=== PATIENT | male | born 1935 | race Caucasian/White ===

== ENCOUNTER → 2016-12-11 | Outpatient (CLI) | payer MEDICARE ==
--- NOTE | 2016-12-11 14:51 | US ---
EXAMINATION TYPE: US venous doppler duplex LE DATE OF EXAM: 12/11/2016 10:43 AM COMPARISON: NONE CLINICAL HISTORY: 81-year-old male Pain in BLE M79.606 I73.9 Vascular disease unspecified. Bilat. leg pain, left worse that right at times, no previous DVT. SIDE PERFORMED: bilateral TECHNIQUE: The lower extremity deep venous system is examined utilizing real time linear array sonog carroll with graded compression, doppler sonography and color-flow sonography. FINDINGS: VESSELS IMAGED: External Iliac Vein (EIV) Common Femoral Vein Deep Femoral Vein Greater Saphenous Vein * Femoral Vein Popliteal Vein Small Saphenous Vein * (* superficial vessels) Right Leg: neg for RLE DVT Left Leg: neg for LLE DVT Results called to Zamzam in the office at the time of the exam. IMPRESSION: No evidence for DVT within the bilateral lower extremities imaged from the groin to the knees.
--- NOTE | 2016-12-17 11:24 | P.ARTDOP ---
Arterial Doppler LOWER EXTREMITY ARTERIAL DOPPLER: DATE OF SERVICE: 12/11/2016 Reason for study: Leg pain. Doppler waveforms: Multiphasic bilaterally throughout. Pulse volume recording: Normal configuration. Pressure gradients: Mild distal gradient on the left. Ankle-brachial indices: Greater than 1 on the right. 0.88 on the left.. Toe pressures: [] on the right, [] on the left Impression: Normal on the right with possible mild left femoral popliteal disease. Does not correlate with symptoms..
== END | disposition home or self-care (01) ==
LOC: RADUSWWP 09:51
PROVIDERS: ATTEND Family Medicine
DX: I73.9 Peripheral vascular disease, unspecified (principal); M79.606 Pain in leg, unspecified
CPT/HCPCS: 93923; 93970

== ENCOUNTER 2016-12-21 00:03 | Inpatient (IN) | payer MEDICARE ==
--- NOTE | 2016-12-21 01:48 | ED ---
Abdominal Pain HPI - General Chief Complaint: Abdominal Pain Stated Complaint: Flank Pain Time Seen by Provider: 12/21/16 00:47 Source: patient Mode of arrival: EMS Limitations: no limitations - History of Present Illness Initial Comments: This patient is an 81-year-old man who was transferred here from [facility] to have further evaluation for some abdominal findings. The patient states she was in his usual state of health until about 6 PM when he noticed suprapubic pain, that he described as moderately severe, constant, without any relieving factors. The pain was made worse with any pressure on the abdomen or sitting. The patient also is having some nausea and vomiting and was shaking. He also felt like he had to have a bowel movement though he did not. The patient went to the other hospital where he had workup including labs and CAT scan that found an incidental AAA. The patient also appeared to be having urinary retention, they were able to drain well over 500 mL of urine when they placed a catheter. The patient states that his symptoms resolved after the catheter was placed. The physician there discussed the case with Dr. Medina, who accepted transfer here. MD Complaint: abdominal pain Onset/Timin -: hour(s) Location: suprapubic Radiation: none Severity: severe Quality: sharp Consistency: constant Improves With: nothing Worsens With: nothing Associated Symptoms: nausea, vomiting - Related Data Home Medications Medication Instructions Recorded Confirmed ALPRAZolam [Xanax] 0.5 mg PO BID PRN 12/21/16 12/21/16 Atorvastatin [Lipitor] 20 mg PO HS 12/21/16 12/21/16 Enalapril Maleate [Vasotec] 2.5 mg PO DAILY 12/21/16 12/21/16 Glimepiride [Amaryl] 2 mg PO AC-BRKFST 12/21/16 12/21/16 Magnesium Oxide [Magnesium] 500 mg PO DAILY 12/21/16 12/21/16 Multivit-Min/FA/Lycopen/Lutein 1 tab PO DAILY 12/21/16 12/21/16 [Centrum Silver Tablet] [place]-3/Dha/Epa/Fish Oil [Fish Oil 1 cap PO DAILY 12/21/16 12/21/16 500 mg Softgel] Omeprazole 20 mg PO DAILY 12/21/16 12/21/16 Tamsulosin HCl [Flomax] 0.4 mg PO BID 12/21/16 12/21/16 amLODIPine [Norvasc] 10 mg PO DAILY 12/21/16 12/21/16 traMADol-ACETAMINOP 37.5-325MG 1 tab PO BID 12/21/16 12/21/16 [Ultracet] Allergies Allergy/AdvReac Type Severity Reaction Status Date / Time No Known Allergies Allergy Verified 12/21/16 09:24 Review of Systems ROS Statement: Those systems with pertinent positive or pertinent negative responses have been documented in the HPI. ROS Other: All systems not noted in ROS Statement are negative. Constitutional: Denies: fever, chills Respiratory: Denies: cough, dyspnea Cardiovascular: Denies: chest pain, palpitations, edema Gastrointestinal: Reports: abdominal pain, nausea, vomiting. Denies: diarrhea, constipation Genitourinary: Denies: dysuria, hematuria Musculoskeletal: Denies: back pain Skin: Denies: rash Neurological: Denies: headache, weakness, numbness Past Medical History Past Medical History: GERD/Reflux, Hyperlipidemia, Hypertension History of Any Multi-Drug Resistant Organisms: None Reported Additional Past Surgical History / Comment(s): right wrist, penile implant Past Psychological History: No Psychological Hx Reported Smoking Status: Former smoker Past Alcohol Use History: None Reported Past Drug Use History: None Reported - Past Family History Father Family Medical History: Cancer Mother Family Medical History: Dementia Additional Family Medical History / Comment(s): alzheimers General Exam Limitations: no limitations General appearance: alert, in no apparent distress Head exam: Present: atraumatic, normocephalic Eye exam: Present: normal appearance. Absent: scleral icterus, conjunctival injection Respiratory exam: Present: normal lung sounds bilaterally. Absent: respiratory distress, wheezes, rales, rhonchi, stridor Cardiovascular Exam: Present: regular rate, normal rhythm, normal heart sounds. Absent: systolic murmur, diastolic murmur, rubs, gallop GI/Abdominal exam: Present: soft. Absent: distended, tenderness, guarding, rebound, mass Extremities exam: Present: normal inspection, normal capillary refill. Absent: pedal edema, calf tenderness Back exam: Present: normal inspection. Absent: CVA tenderness (R), CVA tenderness (L) Neurological exam: Present: alert Skin exam: Present: warm, dry, intact, normal color. Absent: rash, cyanosis, diaphoretic, erythema, petechiae, pallor, mottled Course Vital Signs 12/21/16 12/21/16 12/21/16 00:07 02:29 03:25 Temperature 98.1 F 97.1 F L Pulse Rate 99 92 Pulse Rate [ 87 Pulse Oximetery ] Respiratory 18 18 16 Rate Blood Pressure 143/70 156/74 Blood Pressure 136/70 [Right Arm] O2 Sat by Pulse 97 96 94 L Oximetry Medical Decision Making - Medical Decision Making This patient is an 81-year-old man transferred here from outside hospital. He states that he is not having any of the symptoms which had brought him to the other hospital. - Lab Data Result diagrams: 12/23/16 06:45 12/23/16 06:45 Lab Results 12/21/16 12/21/16 12/21/16 Range/Units 01:50 01:50 01:50 WBC 24.6 H (3.8-10.6) k/uL RBC 4.31 (4.30-5.90) m/uL Hgb 14.6 (13.0-17.5) gm/dL Hct 41.5 (39.0-53.0) % MCV 96.3 (80.0-100.0) fL MCH 33.8 (25.0-35.0) pg MCHC 35.1 (31.0-37.0) g/dL RDW 13.2 (11.5-15.5) % Plt Count 258 (150-450) k/uL Neutrophils % 93 % Lymphocytes % 2 % Monocytes % 4 % Eosinophils % 0 % Basophils % 0 % Neutrophils # 22.8 H (1.3-7.7) k/uL Lymphocytes # 0.6 L (1.0-4.8) k/uL Monocytes # 1.0 (0-1.0) k/uL Eosinophils # 0.0 (0-0.7) k/uL Basophils # 0.0 (0-0.2) k/uL Sodium 142 (137-145) mmol/L Potassium 4.7 (3.5-5.1) mmol/L Chloride 109 H (98-107) mmol/L Carbon Dioxide 22 (22-30) mmol/L Anion Gap 11 mmol/L BUN 32 H (9-20) mg/dL Creatinine 1.09 (0.66-1.25) mg/dL Est GFR (MDRD) Af Amer >60 (>60 ml/min/1.73 sqM) Est GFR (MDRD) Non-Af >60 (>60 ml/min/1.73 sqM) Glucose 164 H (74-99) mg/dL Calcium 9.2 (8.4-10.2) mg/dL Total Bilirubin 0.9 (0.2-1.3) mg/dL AST 32 (17-59) U/L ALT 39 (21-72) U/L Alkaline Phosphatase 41 (38-126) U/L Total Protein 6.8 (6.3-8.2) g/dL Albumin 4.1 (3.5-5.0) g/dL Urine Color Dark Brown Urine Appearance Turbid (Clear) Urine pH 5.5 (5.0-8.0) Ur Specific [address] 1.016 (1.001-1.035) Urine Protein 2+ H (Negative) Urine Glucose (UA) Negative (Negative) Urine Ketones 1+ H (Negative) Urine Blood Large H (Negative) Urine Nitrite Negative (Negative) Urine Bilirubin Negative (Negative) Urine Urobilinogen <2.0 (<2.0) mg/dL Ur Leukocyte Esterase Small H (Negative) Urine RBC >182 H (0-5) /hpf Urine WBC >182 H (0-5) /hpf Urine WBC Clumps Few H (None) /hpf Amorphous Sediment Rare H (None) /hpf Urine Mucus Moderate H (None) /hpf - EKG Data -: EKG Interpreted by Or EKG shows normal: sinus rhythm (With occasional PVC.), axis (Normal), intervals (The IN interval is 216 ms, consistent with first-degree AV block. Other intervals normal), QRS complexes (Normal), ST-T waves (Normal) Rate: normal (Rate 97 bpm) Disposition Clinical Impression: Urinary retention, Abdominal aortic aneurysm Disposition: ADMITTED IP TO THIS [facility] Condition: Fair
[2016-12-21] MEDS ORDERED: NALOXONE 0.4 MG/ML 1 ML VIAL IV PRN (01:52)
[2016-12-21 02:00] LABS: Basophils % (A) 0 %; CHCM 35.5; Eosinophils % (A) 0 %; HCT 41.5 % (39.0-53.0); HGB 14.6 gm/dL (13.0-17.5); Luc # (Auto) 0.15; Luc % (Auto) 1; Lymphocytes # (A) 0.6 k/uL (1.0-4.8); Lymphocytes % (A) 2 %; MCH 33.8 pg (25.0-35.0); MCHC 35.1 g/dL (31.0-37.0); MCV 96.3 fL (80.0-100.0); Mean Platelet Volume 7.3; Monocytes % (A) 4 %; Neutrophils # (A) 22.8 k/uL (1.3-7.7); Neutrophils % (A) 93 %; RBC 4.31 m/uL (4.30-5.90); RDW 13.2 % (11.5-15.5); WBC 24.6 k/uL (3.8-10.6); WBC (Perox) 25.33
[2016-12-21 02:05] LABS: Amorphous Sediment,Urine Rare /hpf; Appearance,Urine Turbid (Clear); Bilirubin,Urine Negative (Negative); Glucose,Urine (UA) Negative (Negative); Ketones,Urine 1+ (Negative); Leukocyte Esterase,Urine Small (Negative); Mucus,Urine Moderate /hpf; Nitrite,Urine Negative (Negative); PH, Urine 5.5 (5.0-8.0); Particle Count 19002; Protein,Urine 2+ (Negative); RBC,Urine >182 /hpf (0-5); Specific Gravity,Urine 1.016 (1.001-1.035); UA Billing (MACRO vs. MICRO) MICRO; Urobilinogen,Urine <2.0 mg/dL (<2.0); WBC,Urine >182 /hpf (0-5)
[2016-12-21 02:18] LABS: ALT 39 U/L (21-72); AST 32 U/L (17-59); Alkaline Phosphatase 41 U/L (38-126); Anion Gap 11 mmol/L; Blood Urea Nitrogen 32 mg/dL (9-20); Calcium 9.2 mg/dL (8.4-10.2); Carbon Dioxide 22 mmol/L (22-30); Chloride 109 mmol/L (98-107); Glucose 164 mg/dL (74-99); Non-African American GFR(MDRD) >60 (>60 ml/min/1.73 sqM); Potassium 4.7 mmol/L (3.5-5.1); Sodium 142 mmol/L (137-145); Total Bilirubin 0.9 mg/dL (0.2-1.3); Total Protein 6.8 g/dL (6.3-8.2)
[2016-12-21] MEDS ORDERED: HYDROmorphone 1 MG/ML 1 ML SYRINGE IVP PRN (11:13)
[2016-12-21] MEDS: GLIMEPIRIDE 2 MG TAB PO SCH (12:24)
[2016-12-21] MEDS: LISINOPRIL 5 MG TAB PO SCH (12:26)
[2016-12-21] MEDS: TAMSULOSIN 0.4 MG CAP.ER.24H PO SCH ×2 (12:26→22:44)
[2016-12-21] MEDS: MULTIVITAMINS, THERA 1 EACH TAB PO SCH (12:26)
[2016-12-21] MEDS: amLODIPine 10 MG TAB PO SCH (12:26)
[2016-12-21] MEDS: MAGNESIUM OXIDE 400 MG TAB PO SCH (12:26)
[2016-12-21] MEDS: INSULIN LISPRO (humaLOG) 300 UNIT/3 ML VIAL SQ SCH ×3 (12:26→22:48)
[2016-12-21] MEDS: PANTOPRAZOLE 40 MG/10 ML VIAL IVP SCH (12:27)
[2016-12-21] MEDS: traMADol-ACETAMINOP 37.5-325MG 1 EACH TAB PO SCH ×2 (12:36→22:42)
--- NOTE | 2016-12-21 13:40 | P.GSCN ---
History of Present Illness Consult date: 12/21/16 History of present illness: The patient is an 81-year-old gentleman with a known history of BPH who presented to the emergency room up [place] recently with abdominal pain and difficulty voiding. He was catheterized for 500 mL of urine and felt much better. He was transferred down here for further evaluation. His urinalysis [place] looked infected. A urine culture has been ordered. I do not know whether one was ordered [place]. The patient does have a history of BPH. He has been on Flomax twice a day. He has not seen a urologist in some time. His urination varies from hourly to every 3-4 hours. He has not had any infections or bleeding. He has had some urgency incontinence. He has done relatively well until just recently. He does admit to some significant constipation just prior to his urine retention. He thought that maybe contribute into his urine retention. He did take a Dulcolax suppository but went into retention before he had results from the Dulcolax suppository. Review of Systems - Constitutional Reports as per HPI - Gastrointestinal Reports as per HPI - Genitourinary Reports as per HPI Past Medical History Past Medical History: GERD/Reflux, Hyperlipidemia, Hypertension, Prostate Disorder Additional Past Medical History / Comment(s): restless leg syndrome History of Any Multi-Drug Resistant Organisms: None Reported Additional Past Surgical History / Comment(s): right wrist, penile implant Past Psychological History: No Psychological Hx Reported Smoking Status: Never smoker Past Alcohol Use History: None Reported Past Drug Use History: None Reported - Past Family History Father Family Medical History: Cancer Mother Family Medical History: Dementia Additional Family Medical History / Comment(s): alzheimers Medications and Allergies Home Medications and Allergies Comment(s): The patient has been on tamsulosin 0.4 mg twice a day Home Medications Medication Instructions Recorded Confirmed Type ALPRAZolam [Xanax] 0.5 mg PO BID PRN 12/21/16 12/21/16 History Atorvastatin [Lipitor] 20 mg PO HS 12/21/16 12/21/16 History Enalapril Maleate [Vasotec] 2.5 mg PO DAILY 12/21/16 12/21/16 History Glimepiride [Amaryl] 2 mg PO AC-BRKFST 12/21/16 12/21/16 History Magnesium Oxide [Magnesium] 500 mg PO DAILY 12/21/16 12/21/16 History Multivit-Min/FA/Lycopen/Lutein 1 tab PO DAILY 12/21/16 12/21/16 History [Centrum Silver Tablet] [place]-3/Dha/Epa/Fish Oil [Fish Oil 1 cap PO DAILY 12/21/16 12/21/16 History 500 mg Softgel] Omeprazole 20 mg PO DAILY 12/21/16 12/21/16 History Tamsulosin HCl [Flomax] 0.4 mg PO BID 12/21/16 12/21/16 History amLODIPine [Norvasc] 10 mg PO DAILY 12/21/16 12/21/16 History traMADol-ACETAMINOP 37.5-325MG 1 tab PO BID 12/21/16 12/21/16 History [Ultracet] Allergies Allergy/AdvReac Type Severity Reaction Status Date / Time No Known Allergies Allergy Verified 12/21/16 09:24 Surgical - Exam Vital Signs Temp Pulse Resp BP Pulse Ox 98.1 F 99 18 143/70 97 12/21/16 00:07 12/21/16 00:07 12/21/16 00:07 12/21/16 00:07 12/21/16 00:07 - General well developed, well nourished, no distress - Eyes PERRL - ENT no hearing loss - Neck no masses - Respiratory normal expansion, normal respiratory effort - Cardiovascular Rhythm: regular - Abdomen Abdomen: soft, non tender - Genitourinary Penis has an indwelling catheter is normal testes epididymis are unremarkable perineum is unremarkable. The prostate is greater than 75 g enlarged and benign - Integumentary no rash - Neurologic normal coordination, normal sensation - Musculoskeletal normal posture - Psychiatric oriented to time, oriented to person, oriented to place, speech is normal, memory intact Results - Labs 12/21/16 01:50 12/21/16 01:50 Abnormal Lab Results - Last 24 Hours (Table) 12/21/16 12/21/16 12/21/16 Range/Units 01:50 01:50 01:50 WBC 24.6 H (3.8-10.6) k/uL Neutrophils # 22.8 H (1.3-7.7) k/uL Lymphocytes # 0.6 L (1.0-4.8) k/uL Chloride 109 H (98-107) mmol/L BUN 32 H (9-20) mg/dL Glucose 164 H (74-99) mg/dL Urine Protein 2+ H (Negative) Urine Ketones 1+ H (Negative) Urine Blood Large H (Negative) Ur Leukocyte Esterase Small H (Negative) Urine RBC >182 H (0-5) /hpf Urine WBC >182 H (0-5) /hpf Urine WBC Clumps Few H (None) /hpf Amorphous Sediment Rare H (None) /hpf Urine Mucus Moderate H (None) /hpf Diabetes panel 12/21/16 Range/Units 01:50 Sodium 142 (137-145) mmol/L Potassium 4.7 (3.5-5.1) mmol/L Chloride 109 H (98-107) mmol/L Carbon Dioxide 22 (22-30) mmol/L BUN 32 H (9-20) mg/dL Creatinine 1.09 (0.66-1.25) mg/dL Glucose 164 H (74-99) mg/dL Calcium 9.2 (8.4-10.2) mg/dL AST 32 (17-59) U/L ALT 39 (21-72) U/L Alkaline Phosphatase 41 (38-126) U/L Total Protein 6.8 (6.3-8.2) g/dL Albumin 4.1 (3.5-5.0) g/dL Calcium panel 12/21/16 Range/Units 01:50 Calcium 9.2 (8.4-10.2) mg/dL Albumin 4.1 (3.5-5.0) g/dL Pituitary panel 12/21/16 Range/Units 01:50 Sodium 142 (137-145) mmol/L Potassium 4.7 (3.5-5.1) mmol/L Chloride 109 H (98-107) mmol/L Carbon Dioxide 22 (22-30) mmol/L BUN 32 H (9-20) mg/dL Creatinine 1.09 (0.66-1.25) mg/dL Glucose 164 H (74-99) mg/dL Calcium 9.2 (8.4-10.2) mg/dL Adrenal panel 12/21/16 Range/Units 01:50 Sodium 142 (137-145) mmol/L Potassium 4.7 (3.5-5.1) mmol/L Chloride 109 H (98-107) mmol/L Carbon Dioxide 22 (22-30) mmol/L BUN 32 H (9-20) mg/dL Creatinine 1.09 (0.66-1.25) mg/dL Glucose 164 H (74-99) mg/dL Calcium 9.2 (8.4-10.2) mg/dL Total Bilirubin 0.9 (0.2-1.3) mg/dL AST 32 (17-59) U/L ALT 39 (21-72) U/L Alkaline Phosphatase 41 (38-126) U/L Total Protein 6.8 (6.3-8.2) g/dL Albumin 4.1 (3.5-5.0) g/dL Assessment and Plan Plan: Impression: Acute urinary tract infection. Acute urine retention. Constipation. History of BPH. Recommendations: Do not know whether the constipation or infection led to his retention. Regardless he does have a very big prostate which is aggravating the situation. The patient is being treated with antibiotics and pending culture as to final oral recommendations. Should continue on the Flomax twice a day. Outside finasteride to the regimen. He should have a voiding trial and a proximally 5-7 days. If he goes home before that this can be accomplished in our office as an outpatient. He will also need a cystoscopy at some point in time.
[2016-12-21 15:02] LABS: Basophils % (A) 0 %; CH 33.8; CHCM 34.4; Eosinophils # (A) 0.1 k/uL (0-0.7); Eosinophils % (A) 1 %; HCT 39.8 % (39.0-53.0); HDW 2.67; HGB 13.4 gm/dL (13.0-17.5); Luc # (Auto) 0.21; Luc % (Auto) 1; Lymphocytes # (A) 1.4 k/uL (1.0-4.8); Lymphocytes % (A) 9 %; MCH 33.2 pg (25.0-35.0); MCHC 33.7 g/dL (31.0-37.0); MCV 98.7 fL (80.0-100.0); Mean Platelet Volume 7.3; Monocytes # (A) 0.9 k/uL (0-1.0); Monocytes % (A) 6 %; Neutrophils # (A) 13.1 k/uL (1.3-7.7); Neutrophils % (A) 84 %; RBC 4.03 m/uL (4.30-5.90); RDW 13.3 % (11.5-15.5); WBC 15.7 k/uL (3.8-10.6); WBC (Perox) 16.89
[2016-12-21 19:52] LABS: Hemoglobin A1C 5.8 % (4.2-6.1)
[2016-12-21 20:19] LABS: Basophils % (A) 0 %; CH 33.9; CHCM 35.2; Eosinophils # (A) 0.2 k/uL (0-0.7); Eosinophils % (A) 2 %; HCT 37.4 % (39.0-53.0); HDW 2.63; Luc # (Auto) 0.22; Luc % (Auto) 2; Lymphocytes # (A) 1.6 k/uL (1.0-4.8); Lymphocytes % (A) 12 %; MCH 33.6 pg (25.0-35.0); MCHC 34.7 g/dL (31.0-37.0); MCV 96.9 fL (80.0-100.0); Mean Platelet Volume 7.5; Monocytes # (A) 0.7 k/uL (0-1.0); Monocytes % (A) 5 %; Neutrophils # (A) 10.4 k/uL (1.3-7.7); Neutrophils % (A) 79 %; RBC 3.86 m/uL (4.30-5.90); RDW 13.2 % (11.5-15.5); WBC 13.2 k/uL (3.8-10.6); WBC (Perox) 13.89
[2016-12-21] MEDS: ATORVASTATIN 20 MG TAB PO SCH (22:44)
[2016-12-21] MEDS: ALPRAZolam 0.5 MG TAB PO PRN (22:44)
[2016-12-21 22:55] LABS: Glucose,Whole Blood 104 mg/dL (75-99)
[2016-12-22 07:01] LABS: Basophils % (A) 0 %; CHCM 35.3; Eosinophils # (A) 0.2 k/uL (0-0.7); Eosinophils % (A) 2 %; HCT 37.1 % (39.0-53.0); HDW 2.68; HGB 12.7 gm/dL (13.0-17.5); Luc # (Auto) 0.15; Luc % (Auto) 1; Lymphocytes # (A) 1.4 k/uL (1.0-4.8); Lymphocytes % (A) 14 %; MCH 33.1 pg (25.0-35.0); MCHC 34.1 g/dL (31.0-37.0); MCV 96.9 fL (80.0-100.0); Mean Platelet Volume 7.4; Monocytes # (A) 0.6 k/uL (0-1.0); Monocytes % (A) 6 %; Neutrophils % (A) 77 %; RBC 3.83 m/uL (4.30-5.90); RDW 13.2 % (11.5-15.5); WBC 10.3 k/uL (3.8-10.6); WBC (Perox) 10.83
[2016-12-22 07:10] LABS: Anion Gap 6 mmol/L; Blood Urea Nitrogen 19 mg/dL (9-20); Calcium 8.7 mg/dL (8.4-10.2); Carbon Dioxide 25 mmol/L (22-30); Chloride 107 mmol/L (98-107); Glucose 118 mg/dL (74-99); Non-African American GFR(MDRD) >60 (>60 ml/min/1.73 sqM); Potassium 4.1 mmol/L (3.5-5.1); Sodium 138 mmol/L (137-145)
[2016-12-22] MEDS: GLIMEPIRIDE 2 MG TAB PO SCH (07:35)
[2016-12-22] MEDS: INSULIN LISPRO (humaLOG) 300 UNIT/3 ML VIAL SQ SCH ×4 (07:35→22:27)
[2016-12-22] MEDS: PANTOPRAZOLE 40 MG/10 ML VIAL IVP SCH (08:29)
[2016-12-22] MEDS: amLODIPine 10 MG TAB PO SCH (08:31)
[2016-12-22] MEDS: MULTIVITAMINS, THERA 1 EACH TAB PO SCH (08:31)
[2016-12-22] MEDS: LISINOPRIL 5 MG TAB PO SCH (08:32)
[2016-12-22] MEDS: MAGNESIUM OXIDE 400 MG TAB PO SCH (08:32)
[2016-12-22] MEDS: TAMSULOSIN 0.4 MG CAP.ER.24H PO SCH ×2 (08:32→21:44)
[2016-12-22] MEDS: FINASTERIDE 5 MG TAB PO SCH (08:32)
[2016-12-22] MEDS: traMADol-ACETAMINOP 37.5-325MG 1 EACH TAB PO SCH ×2 (08:34→21:43)
--- NOTE | 2016-12-22 09:23 | HP ---
DATE OF ADMISSION: 12/21/2016 CHIEF COMPLAINT: Abdominal pain. HISTORY OF PRESENT ILLNESS: This 81-year-old gentleman with a past medical history of multiple medical problems including gastroesophageal reflux disease, history of prostate disorder, was admitted to [facility] for evaluation of the lower abdominal pain and urinary retention. The patient had a Boucher catheter inserted. The patient was receiving taking Flomax previously. The patient also had CT scan of the abdomen done at [facility] showing incidental abdominal aortic aneurysm. About 500 mL of urine was drained from the catheter and the patient was sent to [facility]. There is no history of fever, rigors or chills. No history of headache, loss of consciousness or seizures. White count is 150, the patient also had evidence of UTI. Patient also complaining of bright red blood per and the patient admitted for further evaluation and treatment. There is no history of any fever, rigors. No history of headaches, loss of consciousness or seizures. PAST MEDICAL HISTORY: History of GERD, hypertension, hyperlipidemia, history of prostate disorder, history of right wrist and penile implant. Medications prior to admission include: 1. Fish oil 500 mg p.o. daily. 2. Ultracet 1 tablet p.o. b.i.d. 3. Norvasc 10 mg p.o. daily. 4. Flomax 0.4 daily b.i.d. 5. Omeprazole 20 mg p.o. daily. 6. Centrum 1 p.o. daily. 7. Magnesium 500 mg p.o. daily. 8. Amaryl 2 mg a.c. breakfast. 9. Vasotec 2.5 mg daily. 10. Lipitor 20 mg. 11. Xanax 0.5 b.i.d. p.r.n. ALLERGIES: None. FAMILY HISTORY: History of cancer and dementia in the family. SOCIAL HISTORY: No history of smoking, no history of alcohol intake. REVIEW OF SYSTEMS: ENT: No diminished hearing. No diminished vision. CARDIOVASCULAR: As mentioned earlier. RESPIRATORY: No cough. GI: As mentioned earlier. : As mentioned earlier. CENTRAL NERVOUS SYSTEM: No numbness or weakness. ALLERGY/IMMUNOLOGY: No asthma or hayfever. MUSCULOSKELETAL: As mentioned earlier. HEMATOLOGY/ONCOLOGY: No history of anemia. ENDOCRINE: No history of diabetes or hypothyroidism. CONSTITUTIONAL: As mentioned earlier. DERMATOLOGY: Negative. RHEUMATOLOGY: Negative. PSYCHIATRY: As mentioned earlier. PHYSICAL EXAMINATION: The patient is alert and oriented times three. Pulse 81, blood pressure 160/74, respirations 18, temperature 98.2, pulse ox 94% on room air. HEENT: Conjunctivae normal. Oral mucosa moist. NECK: No jugular venous distention. No carotid bruit. No lymph node enlargement. CARDIOVASCULAR: S1. S2 muffled. RESPIRATORY: Breath sounds diminished at the bases. A few rhonchi, no crackles. ABDOMEN: Soft. Mild diffuse discomfort is lower part of the abdomen, otherwise no mass palpable. No bruits. Legs: No edema. No swelling. CENTRAL NERVOUS SYSTEM: Higher functions as mentioned earlier. Moves all four limbs. No focal deficits. LYMPHATICS: No lymph nodes palpable in the neck, axillae or groin. SKIN: No ulcer, rash or bleeding. LABORATORY DATA: WBC is 24.6, chloride 117. Glucose 164. UA noted. ASSESSMENT: 1. Lower abdominal pain with urinary outlet obstruction with acute urinary tract infection with possible systemic inflammatory response syndrome. 2. Increased WBC. 3. Possible lower gastrointestinal bleeding. 4. Abdominal aortic aneurysm. 5. History of gastroesophageal reflux disease. 6. Hypertension, essential. 7. Hyperlipidemia. 8. History of restless leg syndrome. 9. History of degenerative joint disease. 10. FULL CODE. RECOMMENDATIONS AND DISCUSSION: In this 81-year-old gentleman who presented with multiple complex medical issues, we will monitor the patient closely, continue the current medications, continue symptomatic treatment. We will recommend empiric antibiotics. We will follow the cultures. Repeat labs. Otherwise, monitor hemoglobin closely as far as the gastrointestinal bleed is concerned, otherwise, urology and vascular consultations. We do not have the full report of the CT scan done [facility] [place]. We will continue to monitor. Prognosis guarded. I had a detailed discussion with the family and the family agrees. Further recommendations to follow. See orders for further details. Symptomatic treatment also will be provided. Urologist is planning voiding trial as well as probably in the outpatient setting. KAM
[2016-12-22 11:42] LABS: Glucose,Whole Blood 155 mg/dL (75-99)
--- NOTE | 2016-12-22 13:32 | CONS ---
DATE OF CONSULTATION: 12/22/2016 REASON FOR CONSULTATION: Acute lower gastrointestinal bleed. HISTORY OF PRESENT ILLNESS: The patient is an 81-year-old pleasant white male who was transferred from [facility] for urinary retention. The patient started having some lower abdominal discomfort and cramping in the lower abdomen. He thought he initially was very constipated. He took a couple of tablets of Dulcolax and after that he had 2 episodes of bright red blood per rectum. Because of the progressive suprapubic pain and moderate abdominal distention, he went to the emergency room at [facility] and he was subsequently diagnosed with urinary retention. He had a Boucher catheter placed and subsequently also had a CT of the abdomen and pelvis done that showed evidence of incidentally he was noted to have abdominal aortic aneurysm and hence Dr. Schumacher has been consulted. The patient was transferred to this hospital. He was evaluated by Dr. Goyal yesterday. This morning, he states that he had another two episodes of large amount of bright red blood per stool. Last night he had one episode with some clots. He still had some cramping of lower quadrant abdominal pain. He never had these symptoms before. His last colonoscopy at [place] was done about 6 or 7 years ago and according to the patient was within normal limits. He reports no nausea, vomiting. Denies any fever, chills, night sweats. His past medical history is significant for hypertension, hypercholesterolemia, degenerative joint disease, gastroesophageal reflux disease, diabetes mellitus, anxiety. Medications at home: 1. Xanax. 2. Lipitor. 3. Vasotec. 4. Amaryl. 5. Magnesium. 6. Centrum silver. 7. Flomax. 8. Omeprazole. 9. Norvasc. 10. Ultracet. ALLERGIES: None. SOCIAL HISTORY: No history of smoking or alcohol use. FAMILY HISTORY: Unremarkable. REVIEW OF SYSTEMS: CARDIOPULMONARY: No chest pain or shortness of breath. GENITOURINARY: No dysuria or hematuria. MUSCULOSKELETAL: Unremarkable. SKIN: Unremarkable. ENDOCRINE: Unremarkable. PSYCHIATRIC: Unremarkable. NEUROLOGY: Unremarkable. ENT/vision: Unremarkable. CONSTITUTIONAL: No recent weight loss. No fevers, chills or night sweats. On physical examination, he appears comfortable in no apparent distress. Vital signs are stable. Blood pressure is 143/70, pulse rate 73, temperature 97. HEENT EXAMINATION: Unremarkable. Conjunctivae pink. Sclerae anicteric. Oral cavity, no lesions. NECK: No JVD or lymph node enlargement. Chest was clear to auscultation. HEART: Regular rate and rhythm. ABDOMEN: Soft. Bowel sounds are positive. No organomegaly. EXTREMITIES: No pedal edema. SKIN: No rashes. NEURO: Alert and oriented x3. No focal deficits. Labs done at the time of admission to the hospital: WBC 15.7, hemoglobin 13.4, and platelets are 245. This morning, WBC 10.3, hemoglobin 12.7 and platelets are 208, ALT, AST, t-bili and alkaline phosphatase are within normal limits. BUN and creatinine normal. C. difficile was negative. Stool occult blood was positive. IMPRESSION: 1. Acute lower gastrointestinal bleed, possibly diverticular in etiology. Other colonic pathology cannot be excluded. Last colonoscopy 6 to 7 years ago was normal according to the patient. 2. Acute urinary retention status post Boucher catheter placement and the patient gradually improving. Urology has seen the patient. RECOMMENDATIONS: 1. CBC every 12 hours as needed. 2. Will proceed with a colonoscopy tomorrow. I discussed with the patient the risks, benefits, and complications of the procedure and he is agreeable to it. Thank you for this consultation.
[2016-12-22 14:02] LABS: Glucose,Whole Blood 199 mg/dL (75-99)
[2016-12-22] MEDS: HYDROcodone/APAP 5-325MG 1 EACH TAB PO PRN (14:30)
[2016-12-22] MEDS ORDERED: PEG 3350-NA SULF,BICARB,CL/KCL 4,000 ML BOTTLE PO ONE (16:00)
[2016-12-22 17:00] LABS: Glucose,Whole Blood 152 mg/dL (75-99)
[2016-12-22 20:49] LABS: Glucose,Whole Blood 104 mg/dL (75-99)
[2016-12-22] MEDS: ATORVASTATIN 20 MG TAB PO SCH (21:44)
[2016-12-22] MEDS: ALPRAZolam 0.5 MG TAB PO PRN (21:44)
--- NOTE | 2016-12-23 06:39 | PN ---
DATE OF SERVICE: 12/22/2016 This 81-year-old gentleman admitted with multiple medical problems and abdominal pain also had lower gastrointestinal bleed. Dr. Contreras has recommended colonoscopy. Patient refused. Currently the hemoglobin is 12.7. The patient also had abdominal aortic aneurysm about 5.2 cm. No chest pain, no palpitations. No fever. PAST MEDICAL HISTORY: Reviewed. REVIEW OF SYSTEMS: CARDIOVASCULAR: No angina. RESPIRATORY: Mentioned earlier. GI: Mentioned earlier. : Mentioned earlier. NERVOUS SYSTEM: No numbness or weakness. Medications are reviewed and include: 1. [place] 5 mg daily. 3. Norvasc 10 mg daily. 4. Lipitor 20 mg q.h.s. 5. Rocephin 1 gram IV daily. 6. Proscar 5 mg daily. 7. Amaryl 2 mg a.c. breakfast. 8. Dilaudid 0.5 mg q.6 p.r.n. 9. Humalog scale. 10. Zestril 5 mg p.o. daily. 11. Magnesium oxide 400 mg daily. 12. Multivitamins. 13. Narcan. 14. Protonix. 16. Flomax. PHYSICAL EXAMINATION: The patient is alert and oriented x3. Pulse 79, blood pressure 120/66, respirations 18, temperature 98.4. Pulse ox 97% on room air. HEENT: Conjunctivae normal. NECK: No jugular venous distention. CARDIOVASCULAR: S1 and S2, muffled. RESPIRATORY: Breath sounds diminished at the bases. A few scattered rhonchi and crackles. ABDOMEN: Soft, nontender. No mass palpable. No guarding, no rigidity. Boucher catheter in situ. No pulsatile mass. No bruit. LEGS: No edema, no swelling. Pulses are diminished bilaterally. NERVOUS SYSTEM: Higher function as mentioned. Moves all four limbs. No focal motor deficits. LYMPHATIC: No lymphadenopathy in the neck, axillae or groin. SKIN: No ulcer, rash or bleeding. Labs are WBC 10, hemoglobin is 12.7. ASSESSMENT: 1. Lower abdominal pain with the urinary outlet obstruction with acute urinary tract infection with possible systemic inflammatory response syndrome. 2. Increased WBC. 3. Lower gastrointestinal bleeding for evaluation. 4. Mild anemia. 5. Abdominal aortic aneurysm 5.6 cm. 6. History of gastroesophageal reflux disease. 7. Hypertension, essential. 8. Hyperlipidemia. 9. History of restless leg syndrome. 10. History of degenerative joint disease. 11. FULL CODE. RECOMMENDATIONS AND DISCUSSION: I recommend to continue the current medications, continue monitoring and symptomatic treatment. Continue the Boucher catheter. Continue broad-spectrum IV antibiotics. Cultures are negative so far. I would also recommend to follow closely with Vascular Surgery regarding the abdominal aortic aneurysm. Dr. Contreras's notes appreciated, but as mentioned earlier the patient refused colonoscopy. KAM
[2016-12-23 07:20] LABS: Glucose,Whole Blood 124 mg/dL (75-99)
[2016-12-23 07:30] LABS: Basophils % (A) 0 %; CH 33.5; CHCM 34.1; Eosinophils # (A) 0.2 k/uL (0-0.7); Eosinophils % (A) 2 %; HCT 37.4 % (39.0-53.0); HDW 2.56; HGB 12.5 gm/dL (13.0-17.5); Luc # (Auto) 0.15; Luc % (Auto) 2; Lymphocytes # (A) 1.1 k/uL (1.0-4.8); Lymphocytes % (A) 14 %; MCHC 33.4 g/dL (31.0-37.0); MCV 98.6 fL (80.0-100.0); Mean Platelet Volume 7.9; Monocytes # (A) 0.4 k/uL (0-1.0); Monocytes % (A) 6 %; Neutrophils # (A) 6.2 k/uL (1.3-7.7); Neutrophils % (A) 77 %; RBC 3.79 m/uL (4.30-5.90); RDW 13.3 % (11.5-15.5); WBC 8.1 k/uL (3.8-10.6)
[2016-12-23 07:36] LABS: Anion Gap 6 mmol/L; Blood Urea Nitrogen 13 mg/dL (9-20); Calcium 8.7 mg/dL (8.4-10.2); Carbon Dioxide 27 mmol/L (22-30); Chloride 107 mmol/L (98-107); Glucose 124 mg/dL (74-99); Non-African American GFR(MDRD) >60 (>60 ml/min/1.73 sqM); Potassium 4.1 mmol/L (3.5-5.1); Sodium 140 mmol/L (137-145)
[2016-12-23] MEDS: INSULIN LISPRO (humaLOG) 300 UNIT/3 ML VIAL SQ SCH ×4 (08:17→22:08)
[2016-12-23] MEDS: GLIMEPIRIDE 2 MG TAB PO SCH ×2 (08:19→11:39)
[2016-12-23] MEDS: amLODIPine 10 MG TAB PO SCH (08:22)
[2016-12-23] MEDS: LISINOPRIL 5 MG TAB PO SCH (08:22)
[2016-12-23] MEDS: MAGNESIUM OXIDE 400 MG TAB PO SCH (08:22)
[2016-12-23] MEDS: MULTIVITAMINS, THERA 1 EACH TAB PO SCH (08:23)
[2016-12-23] MEDS: FINASTERIDE 5 MG TAB PO SCH (08:23)
[2016-12-23] MEDS: TAMSULOSIN 0.4 MG CAP.ER.24H PO SCH ×2 (08:23→22:07)
[2016-12-23] MEDS: PANTOPRAZOLE 40 MG/10 ML VIAL IVP SCH (08:23)
[2016-12-23] MEDS: traMADol-ACETAMINOP 37.5-325MG 1 EACH TAB PO SCH ×2 (08:29→22:10)
[2016-12-23 11:35] LABS: Glucose,Whole Blood 225 mg/dL (75-99)
--- NOTE | 2016-12-23 11:41 | PN ---
DATE OF SERVICE: 12/23/2016 The patient is an 81-year-old pleasant white male admitted to the hospital with acute urinary retention. He also was having multiple episodes of bright red blood per rectum that started the day prior to admission to the hospital. He was constipated, took some Dulcolax and since then he had multiple episodes of bright red blood per rectum. Yesterday morning he had 2 episodes and subsequently he was seen on consultation and the plan was to proceed with a colonoscopy today. However, yesterday evening, he decided not to have the colonoscopy done because he feels extremely weak and tired and he thought he cannot tolerate the prep. Since yesterday morning he did not have any further episodes of bleeding. This morning he is doing well. No abdominal pain. Denies any nausea or vomiting. In fact, had no bowel movement so far. On physical examination, appears comfortable in no apparent distress. Vital signs are stable. Blood pressure is 139/82, pulse rate 85, and afebrile. HEENT EXAMINATION: Unremarkable. Conjunctivae pink. Sclerae anicteric. Oral cavity, no lesions. NECK: No JVD or lymph node enlargement. Chest was clear to auscultation. HEART: Regular rate and rhythm. ABDOMEN: Soft. Bowel sounds are positive. No organomegaly. EXTREMITIES: No pedal edema. SKIN: No rashes. NEURO: Alert and oriented x3. No focal deficits. Labs from this morning still pending. Hemoglobin yesterday 12.4. IMPRESSION: 1. Acute lower gastrointestinal bleeding possibly diverticular in nature, cannot rule out other colonic pathology. He had bleeding for 3 days, now subsided for the last 24-hour period. Last hemoglobin yesterday 12.4 and this morning hemoglobin is still pending. 2. Acute urinary retention. Urology is following the patient closely. RECOMMENDATIONS: 1. Advanced to a regular diet. 2. At this time patient refuses to have a colonoscopy and hence I suggested that if he has more bleeding, we will talk about this again. Otherwise, we will plan on doing this on an outpatient basis. 3. Await CBC from this morning. 4. We will follow him closely during his hospital stay. Thank you for this consultation.
--- NOTE | 2016-12-23 13:45 | P.GSCN ---
History of Present Illness History of present illness: 81 male, history of lower abdominal pain seen by Dr. Bain and he had a retention of urine folic catheter was placed and a he had a 500 mL of urine output patient has a very large prostate he also has some low hemoglobin and patient was scheduled to have a colonoscopy this morning patient refused and he was rescheduled. Patient had a CT of the abdomen and pelvis at [facility] patient has a right hydronephrosis, he also has infrarenal abdominal aortic aneurysm which is 5.6 which was incidental finding Medical history history of hypertension, history of prostate disorder, Neck examination neck is supple no bruit appreciated Chest clear first and second sound normal Abdomen soft nontender aorta is nontender bowel sounds are present Vascular examination brachial radial pulses are present, femorals is 2+, left femoral is 1+ Impression is infrarenal abdominal aortic aneurysm no evidence of le Plan is patient has a workup for colonoscopy and also he has a retention of urine under care of Zackary yvonne Matahen will be needing CTA of the abdomen and pelvis with runoff with 3 mm cut which can be done in an outpatient I have discussed with in detail she has a daughter [facility] she is a nurse practitioner Eschen will be seen in my office next week after discharge from the hospital we'll follow with you thank you Past Medical History Past Medical History: GERD/Reflux, Hyperlipidemia, Hypertension, Prostate Disorder Additional Past Medical History / Comment(s): restless leg syndrome History of Any Multi-Drug Resistant Organisms: None Reported Additional Past Surgical History / Comment(s): right wrist, penile implant Past Psychological History: No Psychological Hx Reported Smoking Status: Never smoker Past Alcohol Use History: None Reported Past Drug Use History: None Reported - Past Family History Father Family Medical History: Cancer Mother Family Medical History: Dementia Additional Family Medical History / Comment(s): alzheimers Medications and Allergies Home Medications Medication Instructions Recorded Confirmed Type ALPRAZolam [Xanax] 0.5 mg PO BID PRN 12/21/16 12/21/16 History Atorvastatin [Lipitor] 20 mg PO HS 12/21/16 12/21/16 History Enalapril Maleate [Vasotec] 2.5 mg PO DAILY 12/21/16 12/21/16 History Glimepiride [Amaryl] 2 mg PO AC-BRKFST 12/21/16 12/21/16 History Magnesium Oxide [Magnesium] 500 mg PO DAILY 12/21/16 12/21/16 History Multivit-Min/FA/Lycopen/Lutein 1 tab PO DAILY 12/21/16 12/21/16 History [Centrum Silver Tablet] [place]-3/Dha/Epa/Fish Oil [Fish Oil 1 cap PO DAILY 12/21/16 12/21/16 History 500 mg Softgel] Omeprazole 20 mg PO DAILY 12/21/16 12/21/16 History Tamsulosin HCl [Flomax] 0.4 mg PO BID 12/21/16 12/21/16 History amLODIPine [Norvasc] 10 mg PO DAILY 12/21/16 12/21/16 History traMADol-ACETAMINOP 37.5-325MG 1 tab PO BID 12/21/16 12/21/16 History [Ultracet] Allergies Allergy/AdvReac Type Severity Reaction Status Date / Time No Known Allergies Allergy Verified 12/21/16 09:24 Surgical - Exam Vital Signs Temp Pulse Resp BP Pulse Ox 98.1 F 99 18 143/70 97 12/21/16 00:07 12/21/16 00:07 12/21/16 00:07 12/21/16 00:07 12/21/16 00:07 Results - Labs 12/23/16 06:45 12/23/16 06:45 Abnormal Lab Results - Last 24 Hours (Table) 12/22/16 12/22/16 12/22/16 Range/Units 13:41 16:59 20:33 RBC (4.30-5.90) m/uL Hgb (13.0-17.5) gm/dL Hct (39.0-53.0) % Glucose (74-99) mg/dL POC Glucose (mg/dL) 199 H 152 H 104 H (75-99) mg/dL 12/23/16 12/23/16 12/23/16 Range/Units 06:45 06:45 07:18 RBC 3.79 L (4.30-5.90) m/uL Hgb 12.5 L (13.0-17.5) gm/dL Hct 37.4 L (39.0-53.0) % Glucose 124 H (74-99) mg/dL POC Glucose (mg/dL) 124 H (75-99) mg/dL 12/23/16 Range/Units 11:30 RBC (4.30-5.90) m/uL Hgb (13.0-17.5) gm/dL Hct (39.0-53.0) % Glucose (74-99) mg/dL POC Glucose (mg/dL) 225 H (75-99) mg/dL Microbiology - Last 24 Hours (Table) 12/22/16 07:10 Urine Culture - Final Urine,Catheterized 12/21/16 11:45 Blood Culture - Preliminary Blood No Growth after 24 hours Diabetes panel 12/23/16 Range/Units 06:45 Sodium 140 (137-145) mmol/L Potassium 4.1 (3.5-5.1) mmol/L Chloride 107 (98-107) mmol/L Carbon Dioxide 27 (22-30) mmol/L BUN 13 (9-20) mg/dL Creatinine 0.86 (0.66-1.25) mg/dL Glucose 124 H (74-99) mg/dL Calcium 8.7 (8.4-10.2) mg/dL Calcium panel 12/23/16 Range/Units 06:45 Calcium 8.7 (8.4-10.2) mg/dL Pituitary panel 12/23/16 Range/Units 06:45 Sodium 140 (137-145) mmol/L Potassium 4.1 (3.5-5.1) mmol/L Chloride 107 (98-107) mmol/L Carbon Dioxide 27 (22-30) mmol/L BUN 13 (9-20) mg/dL Creatinine 0.86 (0.66-1.25) mg/dL Glucose 124 H (74-99) mg/dL Calcium 8.7 (8.4-10.2) mg/dL Adrenal panel 12/23/16 Range/Units 06:45 Sodium 140 (137-145) mmol/L Potassium 4.1 (3.5-5.1) mmol/L Chloride 107 (98-107) mmol/L Carbon Dioxide 27 (22-30) mmol/L BUN 13 (9-20) mg/dL Creatinine 0.86 (0.66-1.25) mg/dL Glucose 124 H (74-99) mg/dL Calcium 8.7 (8.4-10.2) mg/dL
[2016-12-23] MEDS: HYDROcodone/APAP 5-325MG 1 EACH TAB PO PRN ×2 (16:50→22:11)
--- NOTE | 2016-12-23 17:00 | PN ---
DATE OF SERVICE: 12/23/2016 This 81-year-old gentleman was admitted with multiple medical problems including lower abdominal discomfort, possibly urinary outflow obstruction and urinary tract infection, also had abdominal aortic aneurysm of 5.6 cm infrarenal. No chest pain, no palpitations. No fever. The patient also had some blood in the stools but the patient refused colonoscopy. Dr. Contreras is planning outpatient follow-up and evaluation. No chest pain, no palpitations. No fever. No shortness of breath. On exam, alert and oriented x3. Pulse 81, blood pressure 143/68, respiration 20, temperature 98.8, pulse ox 96% on room air. HEENT: Conjunctivae normal. NECK: No jugular venous distention. CARDIOVASCULAR: S1 and S2, muffled. RESPIRATORY: Breath sounds diminished at the bases. No rhonchi, no crackles. ABDOMEN: Soft, nontender. No mass palpable. Boucher catheter in situ. NERVOUS SYSTEM: No focal deficits. LABS: Hemoglobin 12.5 and glucose 225. ASSESSMENT: 1. Lower abdominal pain with urinary outlet obstruction with acute urinary retention with infection with systemic inflammatory response syndrome, present on admission, improving. 2. Infrarenal abdominal aortic aneurysm 5.6 cm. 3. Increased WBC. 4. Lower gastrointestinal bleeding for evaluation. 5. Mild anemia, possibly acute blood loss anemia secondary to gastrointestinal bleed, multifactorial. 6. History of gastroesophageal reflux disease. 7. Hypertension, essential. 8. Hyperlipidemia. 9. History of restless leg syndrome. 10. History of degenerative joint disease. 11. FULL CODE. RECOMMENDATIONS AND DISCUSSION: I recommend to continue the current medications, continue monitoring and symptomatic treatment. Will follow the patient closely. Continue the antibiotics and follow closely with Dr. Contreras as well as Dr. Schumacher, who has evaluated the patient for abdominal aortic aneurysm. Guarded prognosis. Further recommendations to follow. Repeat labs will be ordered. Urology has seen the patient and recommended to continue with indwelling Boucher catheter.
[2016-12-23 17:32] LABS: Glucose,Whole Blood 89 mg/dL (75-99)
[2016-12-23] MEDS ORDERED: RX INFO: IV CONTRAST WAS GIVEN 1 EACH MISC MISCELLANE PRN (20:39)
[2016-12-23 22:07] LABS: Glucose,Whole Blood 145 mg/dL (75-99)
[2016-12-23] MEDS: ATORVASTATIN 20 MG TAB PO SCH (22:07)
[2016-12-23] MEDS: ALPRAZolam 0.5 MG TAB PO PRN (22:08)
[2016-12-23 23:00] VITALS: RESP 20
[2016-12-24] MEDS: INSULIN LISPRO (humaLOG) 300 UNIT/3 ML VIAL SQ SCH ×2 (07:28→11:44)
[2016-12-24 07:29] LABS: Glucose,Whole Blood 131 mg/dL (75-99)
[2016-12-24] MEDS: GLIMEPIRIDE 2 MG TAB PO SCH (07:29)
[2016-12-24] MEDS ORDERED: PANTOPRAZOLE 40 MG TABLET PO SCH (07:30)
[2016-12-24 07:36] VITALS: PULSE 75
[2016-12-24] MEDS: amLODIPine 10 MG TAB PO SCH (07:38)
[2016-12-24] MEDS: LISINOPRIL 5 MG TAB PO SCH (07:38)
[2016-12-24 07:50] VITALS: BP 152/79; TEMP 98
[2016-12-24] MEDS: FINASTERIDE 5 MG TAB PO SCH (09:29)
[2016-12-24] MEDS: MAGNESIUM OXIDE 400 MG TAB PO SCH (09:29)
[2016-12-24] MEDS: MULTIVITAMINS, THERA 1 EACH TAB PO SCH (09:29)
[2016-12-24] MEDS: TAMSULOSIN 0.4 MG CAP.ER.24H PO SCH (09:29)
[2016-12-24] MEDS: traMADol-ACETAMINOP 37.5-325MG 1 EACH TAB PO SCH (09:31)
[2016-12-24] MEDS: HYDROcodone/APAP 5-325MG 1 EACH TAB PO PRN (09:33)
[2016-12-24 09:59] LABS: Basophils % (A) 0 %; CH 33.7; CHCM 33.8; Eosinophils # (A) 0.1 k/uL (0-0.7); Eosinophils % (A) 2 %; HCT 37.6 % (39.0-53.0); HDW 2.53; HGB 12.5 gm/dL (13.0-17.5); Luc # (Auto) 0.14; Luc % (Auto) 2; Lymphocytes # (A) 0.9 k/uL (1.0-4.8); Lymphocytes % (A) 14 %; MCH 33.3 pg (25.0-35.0); MCHC 33.2 g/dL (31.0-37.0); MCV 100.4 fL (80.0-100.0); Mean Platelet Volume 7.9; Monocytes # (A) 0.4 k/uL (0-1.0); Monocytes % (A) 6 %; Neutrophils # (A) 5.1 k/uL (1.3-7.7); Neutrophils % (A) 76 %; RBC 3.75 m/uL (4.30-5.90); RDW 13.2 % (11.5-15.5); WBC 6.6 k/uL (3.8-10.6); WBC (Perox) 6.84
[2016-12-24 10:16] LABS: Anion Gap 8 mmol/L; Blood Urea Nitrogen 17 mg/dL (9-20); Calcium 8.8 mg/dL (8.4-10.2); Carbon Dioxide 26 mmol/L (22-30); Chloride 103 mmol/L (98-107); Glucose 166 mg/dL (74-99); Non-African American GFR(MDRD) >60 (>60 ml/min/1.73 sqM); Potassium 4.1 mmol/L (3.5-5.1); Sodium 137 mmol/L (137-145)
--- NOTE | 2016-12-24 10:17 | P.PN ---
Subjective Principal diagnosis: Rectal bleeding 81-year-old male admitted with acute urinary retention and multiple episodes of painless bright red blood per rectum suspected diverticular in nature. Patient was scheduled to have a colonoscopy but declined yesterday after feeling weak not able to tolerate prep. No further episodes of bleeding. Feels well. Hemoglobin not obtained today; 12.5 yesterday. No further bowel movements. Patient's refusing laxatives suppository. Still declines colonoscopy. Objective - Vital Signs Vital signs: Vital Signs Temp 98.0 F 12/24/16 07:00 Pulse 75 12/24/16 07:31 Resp 20 12/24/16 07:31 BP 152/79 12/24/16 07:00 Pulse Ox 94 L 12/24/16 07:00 Intake & Output 12/23/16 12/24/16 12/24/16 18:59 06:59 18:59 Intake Total 800 720 Output Total 2400 1400 550 Balance -1600 -680 -550 Weight 87.09 kg Intake: IV 700 cefTRIAXone 1,000 mg In 700 Sodium Chloride 0.9% 50 ml @ 100 mls/hr IVPB Q24HR NAT Rx#:[id number] Intake, IV Titration 100 Amount cefTRIAXone 1,000 mg In 100 Sodium Chloride 0.9% 50 ml @ 100 mls/hr IVPB Q24HR NAT Rx#:[id number] Oral 720 Output: Urine 2400 1400 550 Other: Voiding Method Indwelling Catheter Indwelling Catheter Indwelling Catheter # Voids 1 - Exam General appearance: The patient is alert, oriented, in no acute distress. HET: Head is normocephalic and atraumatic. Pupils are equal and reactive. Oropharynx is clear without lesions. Neck: Supple without lymphadenopathy. Trachea midline. Heart: S1 S2. Regular rate and rhythm. Lungs: No crackles or wheezes are heard. Abdomen: Soft, nontender, nondistended with bowel sounds. No peritoneal signs. No palpable organomegaly or masses. Extremities: Normal skin color and turgor. No cyanosis, rash, ulceration, clubbing, or edema. Radial and pedal pulses are 2/4 bilaterally. Boucher with clear yellow urine. Neurological: No focal deficits. Strength and sensation are grossly intact. - Labs CBC & Chem 7: 12/23/16 06:45 12/23/16 06:45 Labs: Abnormal Lab Results - Last 24 Hours (Table) 12/23/16 12/23/16 12/24/16 Range/Units 11:30 22:06 07:27 POC Glucose (mg/dL) 225 H 145 H 131 H (75-99) mg/dL Microbiology - Last 24 Hours (Table) 12/21/16 11:45 Blood Culture - Preliminary Blood No Growth after 48 hours 12/22/16 07:10 Urine Culture - Final Urine,Catheterized Assessment and Plan (1) Rectal bleeding Status: Acute (2) Urinary retention Status: Acute Plan: 1. Continue diet as tolerated. Patient was offered oral and rectal suppository he refuses. Patient anticipating discharge. Patient was advised to follow up in GI office after discharge for reevaluation and discussion of outpatient colonoscopy. We'll sign off. Assessment and plan a care discussed with Dr. Contreras.
--- NOTE | 2016-12-24 10:19 | CT ---
EXAMINATION TYPE: CT angio abdomen pelvis DATE OF EXAM: 12/24/2016 COMPARISON: NONE INDICATION: Abdominal Aortic Aneurysm DLP: 1408.5 mGycm, Automated exposure control for dose reduction was used. CONTRAST: 125 mL of Omnipaque 350. Study performed without Oral Contrast TECHNIQUE: Axial images were obtained from above the diaphragm to the pubic rami in the axial plane a t 5 mm thick sections. Reconstructed images are reviewed on the computer in the coronal plane. Thre e-D reconstructed images were performed separately on the VITRE[employer] computer by the technologist. FINDINGS: Limited CT sections are obtained the lung bases. Minimal compressive atelectasis is within the depen dent portions of the lung bases.. Coronary artery calcification is noted. CT ABDOMEN: Liver: Normal Spleen: Normal Pancreas: Atrophic Adrenal glands: The adrenal glands are normal. Gallbladder: Normal Kidneys: No masses are evident. No hydronephrosis is present. No cysts are present. Aorta: There is an infrarenal abdominal aortic aneurysm which terminates at the bifurcation. Greatest AP diameter is 4.5 cm. The common iliac internal and external iliac vessels appear without aneurysm. Vascular calcification is present. Runoff is performed. Profunda femoris and common femoral arteries appear patent. There may be some flores perficial femoral artery calcification with some narrowing. Popliteal arteries appear normal position . There is diminished flow within the right popliteal artery compared to the left. Severe stenosis ma y be present more proximally. Vascular calcifications and trifurcation vessels. The left posterior ti bial artery likely contains contrast. Three-D reconstructed images are performed. Trifurcation vessels appear better visualized on Three-D reconstructed images although this may be related to calcification contrast. Diminished flow within t he right popliteal artery is again evident on the 3-D reconstructed images. Inferior vena cava: Normal. CT PELVIS: Loops of bowel within the abdomen and pelvis are normal. There are loops of bowel which are incom pletely distended or lack oral contrast limiting their evaluation. Appendix: What appears to be the appendix is normal. No suspicious changes are evident. Urinary bladder: Catheter is present within the decompressed urinary bladder. Genitourinary structures: Prominent. Penile prosthesis is evident. Osseous structures: No suspicious lytic or sclerotic lesions. Facet degenerative changes are through the lumbar spine. Some degenerative disc changes are within the lumbar spine. IMPRESSIONS: 1. Aneurysm of the distal abdominal aorta terminating above the bifurcation with an AP diameter of 4 .5 cm. 2. 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 3. Poor visualization of the trifurcation vessels likely better visualized due to calcification on th e Three-D reconstructed images.
[2016-12-24 10:52] LABS: Glucose,Whole Blood 165 mg/dL (75-99)
--- NOTE | 2016-12-25 08:15 | DS ---
DATE OF ADMISSION: 12/21/2016 DATE OF DISCHARGE: 12/24/2016 Patient is admitted secondary to benign prostatic hypertrophy and urinary obstruction, which resolved at this point of time. Patient was also treated for urinary tract infection. Patient received antibiotics for about 5 days. Patient has infrarenal abdominal aortic aneurysm for which patient will follow as an outpatient with vascular surgery. At this age patient probably will not be a candidate for intervention unless and it is about 5.6 centimeters and patient is clinically doing well. Completed five day course of antibiotic treatment. Patient will be discharged today. We gave him three more days of Cipro. Patient is seen and examined on the day of discharge. Vital signs are stable. PHYSICAL EXAMINATION: GENERAL: The patient is alert and oriented x3, not in any acute distress. Well developed, well nourished. HEENT: Pupils are round and equally reacting to light. EOMI. No scleral icterus. No conjunctival pallor. Normocephalic, atraumatic. No pharyngeal erythema. No thyromegaly. CARDIOVASCULAR: S1 and S2 present. No murmurs, rubs, or gallops. PULMONARY: Chest is clear to auscultation, no wheezing or crackles. ABDOMEN: Soft, nontender, nondistended, normoactive bowel sounds. No palpable organomegaly. MUSCULOSKELETAL: No joint swelling or deformity. EXTREMITIES: No cyanosis, clubbing, or pedal edema. NEUROLOGICAL: Gross neurological examination did not reveal any focal deficits. SKIN: No rashes. Patient is being discharged to subacute rehabilitation. FINAL DIAGNOSIS(ES): 1. Urinary retention and urinary tract infection and both of which improved and patient will go home with Boucher catheter. Follow up urology as an outpatient. 2. Infrarenal abdominal aortic aneurysm. Further evaluation as an outpatient. Leukocytosis secondary to urinary tract infection and urinary retention secondary to benign prostatic hypertrophy. 3. Gastrointestinal bleed. 4. Mild anemia. 5. Hyperlipidemia. 6. Hypertension. 7. Restless leg syndrome for which patient was started on Requip. Xanax will be discontinued. Please refer to my depart summary for further details of discharge medications. Discharge diet is Cardiac. Activity as tolerated. Follow up with Dr. Jimenez on December at 2 at 3:30, Dr. Devorah Contreras on January 01 at 1:[address] Pedro Pablo Schumacher December 31 at 1130Dr. Jim in 3 to 7 days. Spent greater than 35 minutes in total discharge process.
== END 2016-12-24 13:50 | disposition home or self-care (01) | DRG 690 ==
LOC: EC 00:03 → 5MS5E 01:56
PROVIDERS: ADMIT Hospitalist; ATTEND Hospitalist
DX: N39.0 Urinary tract infection, site not specified (principal); N13.30 Unspecified hydronephrosis; K92.2 Gastrointestinal hemorrhage, unspecified; E11.9 Type 2 diabetes mellitus without complications; D64.9 Anemia, unspecified; I10 Essential (primary) hypertension; E78.5 Hyperlipidemia, unspecified; G25.81 Restless legs syndrome; N40.1 Benign prostatic hyperplasia with lower urinary tract symptoms; N13.8 Other obstructive and reflux uropathy; E78.00 Pure hypercholesterolemia, unspecified; I71.4 Abdominal aortic aneurysm, without rupture; K21.9 Gastro-esophageal reflux disease without esophagitis; K59.00 Constipation, unspecified; Z79.84 Long term (current) use of oral hypoglycemic drugs; Z79.899 Other long term (current) drug therapy; Z87.891 Personal history of nicotine dependence
CPT/HCPCS: 36415; 74174; 80048; 80053; 81001; 82272; 83036; 85025; 87040; 87086; 87324; 93005; 96374; 99285

== ENCOUNTER 2017-01-01 21:28 | Emergency (ER) | payer MEDICARE ==
[2017-01-01 22:33] LABS: Appearance,Urine Clear (Clear); Bilirubin,Urine Negative (Negative); Glucose,Urine (UA) Negative (Negative); Ketones,Urine Negative (Negative); Leukocyte Esterase,Urine Negative (Negative); Mucus,Urine Rare /hpf; Nitrite,Urine Negative (Negative); PH, Urine 6.5 (5.0-8.0); Particle Count 723; Protein,Urine Negative (Negative); RBC,Urine >182 /hpf (0-5); Specific Gravity,Urine 1.007 (1.001-1.035); UA Billing (MACRO vs. MICRO) MICRO; Urobilinogen,Urine <2.0 mg/dL (<2.0); WBC,Urine 14 /hpf (0-5)
--- NOTE | 2017-01-01 22:47 | ED ---
Male Urogenital HPI - General Chief complaint: Urogenital Stated complaint: cannot urinate/severe pain Time Seen by Provider: 01/01/17 22:08 Source: patient, RN notes reviewed Mode of arrival: wheelchair Limitations: no limitations - History of Present Illness Initial comments: patient is a 81-year-old male presents to emergency him for dilation and urinary retention. Patient states he had a Boucher catheter placed a few weeks ago while he was in the hospital. Patient states he went to see Dr. Mckeon this morning and they removed the Boucher catheter. Patient states that they were taught how to straight cath if he was having issues urinating. Patient states that he has been unable to urinate since his appointment. Patient states he tried to straight cath himself with no relief of symptoms. Patient's states that patient was becoming very aggravated due to not being able to urinate so they brought him here. - Related Data Home Medications Medication Instructions Recorded Confirmed Atorvastatin [Lipitor] 20 mg PO HS 12/21/16 01/01/17 Enalapril Maleate [Vasotec] 2.5 mg PO DAILY 12/21/16 01/01/17 Glimepiride [Amaryl] 2 mg PO AC-BRKFST PRN 12/21/16 01/01/17 Magnesium Oxide [Magnesium] 500 mg PO DAILY 12/21/16 01/01/17 Multivit-Min/FA/Lycopen/Lutein 1 tab PO DAILY 12/21/16 01/01/17 [Centrum Silver Tablet] [place]-3/Dha/Epa/Fish Oil [Fish Oil 1 cap PO DAILY 12/21/16 01/01/17 500 mg Softgel] Omeprazole 20 mg PO DAILY 12/21/16 01/01/17 Tamsulosin HCl [Flomax] 0.4 mg PO BID 12/21/16 01/01/17 amLODIPine [Norvasc] 10 mg PO DAILY 12/21/16 01/01/17 traMADol-ACETAMINOP 37.5-325MG 1 tab PO BID 12/21/16 01/01/17 [Ultracet] Aspirin [Children's Aspirin] 81 mg PO HS 01/01/17 01/01/17 Previous Rx's Medication Instructions Recorded rOPINIRole HCL [Requip] 0.25 mg PO HS #30 tablet 05/31/17 Allergies Allergy/AdvReac Type Severity Reaction Status Date / Time No Known Allergies Allergy Verified 01/01/17 22:13 Review of Systems ROS Statement: Those systems with pertinent positive or pertinent negative responses have been documented in the HPI. ROS Other: All systems not noted in ROS Statement are negative. Past Medical History Past Medical History: GERD/Reflux, Hyperlipidemia, Hypertension Additional Past Medical History / Comment(s): restless leg syndrome History of Any Multi-Drug Resistant Organisms: None Reported Additional Past Surgical History / Comment(s): right wrist, penile implant Past Psychological History: No Psychological Hx Reported Smoking Status: Former smoker Past Alcohol Use History: None Reported Past Drug Use History: None Reported - Past Family History Father Family Medical History: Cancer Mother Family Medical History: Dementia Additional Family Medical History / Comment(s): alzheimers General Exam - General Exam Comments Initial Comments: sitting in exam room, no acute distress. Limitations: no limitations General appearance: alert, in no apparent distress Head exam: Present: atraumatic, normocephalic, normal inspection Eye exam: Present: normal appearance ENT exam: Present: normal exam Neck exam: Present: normal inspection Respiratory exam: Present: normal lung sounds bilaterally. Absent: respiratory distress Cardiovascular Exam: Present: regular rate, normal rhythm, normal heart sounds GI/Abdominal exam: Present: soft, normal bowel sounds. Absent: distended, tenderness, guarding, rebound, rigid Extremities exam: Present: normal inspection Back exam: Present: normal inspection Neurological exam: Present: alert, oriented X3, CN II-XII intact, normal gait Psychiatric exam: Present: normal affect, normal mood Skin exam: Present: warm, dry, intact, normal color. Absent: rash Course Vital Signs 01/01/17 01/01/17 21:36 23:07 Temperature 97.4 F L 97.7 F Pulse Rate 127 H 78 Respiratory 28 H 18 Rate Blood Pressure 210/114 144/79 O2 Sat by Pulse 99 97 Oximetry Medical Decision Making - Medical Decision Making patient is an 81-year-old male presents emergency room for evaluation and urinary retention. Boucher catheter was already placed by the time I came in to evaluate patient. 1200 mL were in the Boucher bag. Patient states she has significant relief of symptoms. Patient states he feels a lot better. We'll keep Boucher catheter placed and have him follow-up with urologist either tomorrow or next week. Patient and state they understand everything that was discussed with him. Return parameters discussed.Case discussed with Dr. Cee. - Lab Data Lab Results 01/01/17 Range/Units 22:15 Urine Color Light Yellow Urine Appearance Clear (Clear) Urine pH 6.5 (5.0-8.0) Ur Specific [place] 1.007 (1.001-1.035) Urine Protein Negative (Negative) Urine Glucose (UA) Negative (Negative) Urine Ketones Negative (Negative) Urine Blood Moderate H (Negative) Urine Nitrite Negative (Negative) Urine Bilirubin Negative (Negative) Urine Urobilinogen <2.0 (<2.0) mg/dL Ur Leukocyte Esterase Negative (Negative) Urine RBC >182 H (0-5) /hpf Urine WBC 14 H (0-5) /hpf Urine Mucus Rare H (None) /hpf Disposition Clinical Impression: Urinary retention, Boucher catheter in place Disposition: HOME SELF-CARE Condition: Good Instructions: Urinary Retention in Men (ED), Boucher Catheter Placement and Care (ED) Additional Instructions: Please follow up with urologist. Keep Boucher catheter in place. If any new symptom arises or symptoms worsen, return to ER as soon as possible. Referrals: Guillermo Jimenez III, MD [Primary Care Provider] - 1-2 days Jim Goyal MD [STAFF PHYSICIAN] - 1-2 days Time of Disposition: 22:46
[2017-01-01 23:08] VITALS: BP 144/79; PULSE 78; RESP 18; TEMP 97.7
== END 2017-01-01 23:08 | disposition home or self-care (01) ==
LOC: EC 21:28
DX: T83.098A Other mechanical complication of other urinary catheter, initial encounter (principal); R33.9 Retention of urine, unspecified; K21.9 Gastro-esophageal reflux disease without esophagitis; E78.5 Hyperlipidemia, unspecified; I10 Essential (primary) hypertension; Z87.891 Personal history of nicotine dependence; Z79.82 Long term (current) use of aspirin; Z79.899 Other long term (current) drug therapy
CPT/HCPCS: 51702; 81001; 99283

== ENCOUNTER → 2017-01-09 | Outpatient (CLI) | payer MEDICARE ==
[2017-01-09 12:25] LABS: Basophils % (A) 0 %; CH 33.8; Eosinophils # (A) 0.1 k/uL (0-0.7); Eosinophils % (A) 1 %; HCT 41.2 % (39.0-53.0); HDW 2.72; Luc # (Auto) 0.13; Luc % (Auto) 2; Lymphocytes % (A) 16 %; MCV 97.1 fL (80.0-100.0); Mean Platelet Volume 7.2; Monocytes # (A) 0.3 k/uL (0-1.0); Monocytes % (A) 5 %; Neutrophils # (A) 4.4 k/uL (1.3-7.7); Neutrophils % (A) 75 %; RBC 4.24 m/uL (4.30-5.90); RDW 12.8 % (11.5-15.5); WBC 5.9 k/uL (3.8-10.6); WBC (Perox) 6.34
[2017-01-09 12:34] LABS: ALT 45 U/L (21-72); AST 21 U/L (17-59); Alkaline Phosphatase 42 U/L (38-126); Anion Gap 10 mmol/L; Blood Urea Nitrogen 18 mg/dL (9-20); Calcium 9.6 mg/dL (8.4-10.2); Carbon Dioxide 24 mmol/L (22-30); Chloride 105 mmol/L (98-107); Glucose 127 mg/dL (74-99); Non-African American GFR(MDRD) >60 (>60 ml/min/1.73 sqM); Potassium 4.4 mmol/L (3.5-5.1); Sodium 139 mmol/L (137-145); Total Bilirubin 0.8 mg/dL (0.2-1.3); Total Protein 7.2 g/dL (6.3-8.2)
[2017-01-09 12:35] LABS: Appearance,Urine Clear (Clear); Bilirubin,Urine Negative (Negative); Glucose,Urine (UA) Negative (Negative); Ketones,Urine Negative (Negative); Leukocyte Esterase,Urine Large (Negative); Mucus,Urine Rare /hpf; Nitrite,Urine Negative (Negative); PH, Urine 5.5 (5.0-8.0); Particle Count 3215; Protein,Urine Trace (Negative); RBC,Urine 24 /hpf (0-5); Squamous Epithelial Cell,Urine <1 /hpf (0-4); UA Billing (MACRO vs. MICRO) MICRO; Urobilinogen,Urine <2.0 mg/dL (<2.0); WBC,Urine 11 /hpf (0-5)
== END | disposition home or self-care (01) ==
LOC: LABPAT 11:35
PROVIDERS: ATTEND Urology
DX: Z01.812 Encounter for preprocedural laboratory examination (principal); R35.0 Frequency of micturition; N40.1 Benign prostatic hyperplasia with lower urinary tract symptoms; R33.9 Retention of urine, unspecified; E78.5 Hyperlipidemia, unspecified
CPT/HCPCS: 80053; 81001; 85025; 86850; 86900; 86901; 87086

== ENCOUNTER 2017-01-14 06:42 | Day surgery (SDC) | payer MEDICARE ==
[2017-01-09 14:54] VITALS: BMI 23.5
[~2017-01-14 06:42] MED LIST: AMPICILLIN 2,000 MG in SODIUM CHLORIDE 0.9% 100 ML IVPB ONE; DEXAMETHASONE SOD PHOSPHATE 10 MG/ML 1 ML VIAL IV ONE; GENTAMICIN 130 MG in SODIUM CHLORIDE 0.9% 100 ML IVPB ONE; HYDROmorphone 1 MG/ML 1 ML SYRINGE IVP PRN; LACTATED RINGERS 1,000 ML IV SCH; LIDOCAINE 1% 20 ML VIAL (10MG/ML) FOR IV START INTRADERMA PRN; MIDAZOLAM 2 MG/2 ML VIAL IV PRN; ONDANSETRON 4 MG/2 ML VIAL IVP ONE
[2017-01-14 07:37] LABS: Glucose,Whole Blood 120 mg/dL (75-99)
[2017-01-14] MEDS ORDERED: LIDOCAINE 1% INJ 10MG/ML (20 ML MDV) ONE (08:15)
[2017-01-14] MEDS ORDERED: PROPOFOL 10 MG/ML 20 ML VIAL IV ONE (08:15)
[2017-01-14] MEDS ORDERED: PHENYLEPHRINE-0.9% NACL SYG 1 MG/10 ML SYRINGE ONE (08:15)
[2017-01-14] MEDS ORDERED: fentaNYL (PF) 50 MCG/ML 2 ML AMP ONE (08:15)
[2017-01-14] MEDS ORDERED: ePHEDrine 50 MG/ML 1 ML AMP ONE (08:15)
[2017-01-14] MEDS ORDERED: MIDAZOLAM 2 MG/2 ML VIAL ONE (08:15)
[2017-01-14] MEDS ORDERED: LACTATED RINGERS 1,000 ML IV ONE (09:41)
[2017-01-14] MEDS ORDERED: ALPRAZolam 0.5 MG TAB PO PRN (09:42)
[2017-01-14] MEDS ORDERED: GLIMEPIRIDE 2 MG TAB PO PRN (09:42)
[2017-01-14] MEDS ORDERED: BELLADONNA-OPIUM 16.2-60 MG 1 EACH SUPP RECTAL PRN (09:43)
[2017-01-14] MEDS ORDERED: ACETAMINOPHEN TAB 325 MG TAB PO PRN (09:43)
--- NOTE | 2017-01-14 09:52 | P.OP ---
Date of Procedure: 01/14/17 Preoperative Diagnosis: H urine retention secondary to BPH Postoperative Diagnosis: Urine retention secondary to BPH Procedure(s) Performed: Bipolar TURP Implants: Anesthesia: spinal Surgeon: Jim Goyal Estimated Blood Loss (ml): 50 Pathology: other (Prostate) Condition: stable Disposition: PACU Indications for Procedure: The patient is an 81-year-old gentleman with long-standing obstructive symptoms who is gone in urine retention. He has failed conservative measures to void spontaneously. Stop aspirin identifies a trilobar obstructing prostate with a prominent intravesical middle lobe and heavy trabeculation of the bladder. Operative Findings: Description of Procedure: The patient is brought to the operating suite and placed on the operating table in the supine position. He has been given a successful spinal anesthetic. He' s placed in lithotomy position with a sterile prep and drape. The urethral meatus was dilated to 30-[place] with the Hoyt sounds. I passed under direct vision the 25-[place] sheath with direct vision obturator. Upon entering the prostate is noted to be marked lateral lobe and intravesical middle lobe obstruction. With the Swain resectoscope, the bipolar loop, super second, I first resect the middle lobe. This allows easy passage of the resectoscope in and out of the bladder. I move to 12:00 and resect the left lateral lobe from bladder neck to verumontanum. I then resect the right lateral lobe in similar fashion. I then resect the redundant tissue on the floor of the prostate. I freed the bladder of prostatic chips with the Ellik evacuator. I control any excess bleeding with electrocautery. I reinspected the bladder that no remaining chips. I reinspected the prostatic fossa there is no active bleeding. An 18 coud-tip catheters introduced the bladder with clear urine urine return. The patient's returned recovery room good condition. Blood loss is about 50 mL. We'll be observed in the hospital overnight because of medical issues.
[2017-01-14 10:08] LABS: Glucose,Whole Blood 167 mg/dL (75-99)
[2017-01-14] MEDS: traMADol 50 MG TAB PO PRN ×2 (14:37→20:58)
[2017-01-14] MEDS: SODIUM CHLORIDE 0.45% 1,000 ML IV SCH (14:38)
[2017-01-14 16:19] LABS: Glucose,Whole Blood 241 mg/dL (75-99)
[2017-01-14 20:11] LABS: Glucose,Whole Blood 229 mg/dL (75-99)
[2017-01-14] MEDS: DOCUSATE 100 MG CAP PO SCH (20:55)
[2017-01-14] MEDS: CIPROFLOXACIN HCL 500 MG TAB PO SCH (20:55)
[2017-01-14] MEDS ORDERED: traMADol-ACETAMINOP 37.5-325MG 1 EACH TAB PO SCH (21:00)
[2017-01-14] MEDS ORDERED: ATORVASTATIN 20 MG TAB PO SCH (21:00)
[2017-01-15] MEDS: SODIUM CHLORIDE 0.45% 1,000 ML IV SCH (01:17)
--- NOTE | 2017-01-15 06:18 | P.DS ---
Providers Attending physician: Jim Goyal Primary care physician: [facility] Course: The patient was brought to the hospital for a TURP. He underwent this yesterday without difficulty for his urine retention. His urine is clear. He is not having pain. He'll be discharged home today with his indwelling catheter. A follow-up in the office tomorrow for catheter removal. He resume his home medications. Postoperative instructions have been given. Pathology is pending. He'll resume his home medications. Patient Condition at Discharge: Good Plan - Discharge Summary New Discharge Prescriptions: No Action traMADol-ACETAMINOP 37.5-325MG [Ultracet] 1 tab PO BID Tamsulosin HCl [Flomax] 0.4 mg PO BID amLODIPine [Norvasc] 10 mg PO DAILY Glimepiride [Amaryl] 2 mg PO AC-BRKFST PRN PRN Reason: Blood Sugar - High Magnesium Oxide [Magnesium] 500 mg PO DAILY Enalapril Maleate [Vasotec] 2.5 mg PO DAILY Omeprazole 20 mg PO DAILY Atorvastatin [Lipitor] 20 mg PO HS Multivit-Min/FA/Lycopen/Lutein [Centrum Silver Tablet] 1 tab PO DAILY [place]-3/Dha/Epa/Fish Oil [Fish Oil 500 mg Softgel] 1 cap PO DAILY Aspirin [Children's Aspirin] 81 mg PO HS ALPRAZolam [Xanax] 0.5 mg PO DAILY PRN PRN Reason: RLS traMADol HCL [Ultram] 100 mg PO BID PRN PRN Reason: Pain rOPINIRole HCL [Requip] 0.25 mg PO HS PRN PRN Reason: RLS Discharge Medication List Atorvastatin [Lipitor] 20 mg PO HS 12/21/16 [History] Enalapril Maleate [Vasotec] 2.5 mg PO DAILY 12/21/16 [History] Glimepiride [Amaryl] 2 mg PO AC-BRKFST PRN 12/21/16 [History] Magnesium Oxide [Magnesium] 500 mg PO DAILY 12/21/16 [History] Multivit-Min/FA/Lycopen/Lutein [Centrum Silver Tablet] 1 tab PO DAILY 12/21/16 [ History] [place]-3/Dha/Epa/Fish Oil [Fish Oil 500 mg Softgel] 1 cap PO DAILY 12/21/16 [ History] Omeprazole 20 mg PO DAILY 12/21/16 [History] Tamsulosin HCl [Flomax] 0.4 mg PO BID 12/21/16 [History] amLODIPine [Norvasc] 10 mg PO DAILY 12/21/16 [History] traMADol-ACETAMINOP 37.5-325MG [Ultracet] 1 tab PO BID 12/21/16 [History] Aspirin [Children's Aspirin] 81 mg PO HS 01/01/17 [History] ALPRAZolam [Xanax] 0.5 mg PO DAILY PRN 01/09/17 [History] rOPINIRole HCL [Requip] 0.25 mg PO HS PRN 01/09/17 [History] traMADol HCL [Ultram] 100 mg PO BID PRN 01/09/17 [History] Follow up Appointment(s)/Referral(s): Jim Goyal MD [STAFF PHYSICIAN] - 01/16/17 Activity/Diet/Wound Care/Special Instructions: home with omar bass Discharge Disposition: HOME SELF-CARE
[2017-01-15 06:58] LABS: Glucose,Whole Blood 111 mg/dL (75-99)
[2017-01-15] MEDS ORDERED: PANTOPRAZOLE 40 MG TABLET PO SCH (07:30)
[2017-01-15 08:02] VITALS: BP 140/67; PULSE 68; RESP 18; TEMP 98
[2017-01-15] MEDS: CIPROFLOXACIN HCL 500 MG TAB PO SCH (08:07)
[2017-01-15] MEDS: DOCUSATE 100 MG CAP PO SCH (08:07)
[2017-01-15] MEDS: traMADol 50 MG TAB PO PRN (08:13)
[2017-01-15] MEDS ORDERED: LISINOPRIL 5 MG TAB PO SCH (09:00)
[2017-01-15] MEDS ORDERED: amLODIPine 10 MG TAB PO SCH (09:00)
== END 2017-01-15 13:42 | disposition home or self-care (01) ==
LOC: OR 06:42 → 3SUR 09:45 → OR 01-15 13:42
PROVIDERS: ATTEND Urology
DX: N40.1 Benign prostatic hyperplasia with lower urinary tract symptoms (principal); R33.8 Other retention of urine; N13.8 Other obstructive and reflux uropathy; R35.0 Frequency of micturition; R39.11 Hesitancy of micturition; R39.14 Feeling of incomplete bladder emptying; R35.1 Nocturia; E78.5 Hyperlipidemia, unspecified; I10 Essential (primary) hypertension; E11.9 Type 2 diabetes mellitus without complications; K21.9 Gastro-esophageal reflux disease without esophagitis; G25.81 Restless legs syndrome; Z79.84 Long term (current) use of oral hypoglycemic drugs; Z79.82 Long term (current) use of aspirin; Z79.899 Other long term (current) drug therapy; Z79.891 Long term (current) use of opiate analgesic
CPT/HCPCS: 88305; 52601; J2250; J1100; J2405; J2001; J3010; J1580; J0290; J2370; J2704; 86850; 86900; 86901

== ENCOUNTER → 2017-02-11 | Outpatient (CLI) | payer MEDICARE ==
--- NOTE | 2017-02-11 12:48 | US ---
EXAMINATION TYPE: US scrotum with doppler. Grayscale and color Doppler Duplex imaging performed of t he scrotum. DATE OF EXAM: 02/11/2017 COMPARISON: NONE CLINICAL HISTORY: Testicular Pain N50.81, N50.89 Other specified dis. EXAM MEASUREMENTS: TESTICLES: Right Testicle: 4.8 x 3.5 x 3.1 cm Left Testicle: 4.0 x 3.6 x 3.5 cm EPIDIDYMIS HEAD: Right Epididymis: 1.4 x 2.2 x 1.6 cm Left Epididymis: 3.9 x 3.8 x 3.2 cm Doppler performed to assess for testicular vascularity; good bilateral color flow and waveforms are s een. There is no evidence of testicular torsion. Presence of hydroceles: bilateral Presence of varicoceles: no Bilateral epididymis appears enlarged and echogenic with multiple cystic lesions. Largest on right - 1.2 cm. Largest on left = 2.3 x 1.7 cm The testicles are intrinsically normal with normal vascular flow. There are bilateral hydroceles. The re are multiple epididymal cysts. Images are not hypervascular. IMPRESSION: 1. NORMAL INTRINSIC TESTICLES. 2. BILATERAL HYDROCELES. 3. MULTIPLE, BILATERAL EPIDIDYMAL CYSTS.
== END | disposition home or self-care (01) ==
LOC: RADUSWWP 11:59
PROVIDERS: ATTEND Family Medicine
DX: N43.3 Hydrocele, unspecified (principal); N50.3 Cyst of epididymis
CPT/HCPCS: 76870; 93975

== ENCOUNTER 2017-11-20 07:03 | Day surgery (SDC) | payer MEDICARE ==
[2017-11-18 09:28] VITALS: BMI 25.0
[~2017-11-20 07:03] MED LIST changes: -AMPICILLIN 2,000 MG in SODIUM CHLORIDE 0.9% 100 ML IVPB ONE; -DEXAMETHASONE SOD PHOSPHATE 10 MG/ML 1 ML VIAL IV ONE; -GENTAMICIN 130 MG in SODIUM CHLORIDE 0.9% 100 ML IVPB ONE; -HYDROmorphone 1 MG/ML 1 ML SYRINGE IVP PRN; -LIDOCAINE 1% 20 ML VIAL (10MG/ML) FOR IV START INTRADERMA PRN; -MIDAZOLAM 2 MG/2 ML VIAL IV PRN; -ONDANSETRON 4 MG/2 ML VIAL IVP ONE
[2017-11-20 07:57] LABS: Glucose,Whole Blood 100 mg/dL (75-99)
[2017-11-20] MEDS ORDERED: LIDOCAINE 1% 20 ML VIAL (10MG/ML) FOR IV START INTRADERMA ONE (08:00)
[2017-11-20 08:01] VITALS: RESP 16; TEMP 97.9
[2017-11-20] MEDS ORDERED: PROPOFOL 10 MG/ML 20 ML VIAL IV ONE (08:05)
[2017-11-20] MEDS ORDERED: LIDOCAINE 1% INJ 10MG/ML (20 ML MDV) ONE (08:05)
--- NOTE | 2017-11-20 08:11 | P.GSHP ---
History of Present Illness H&P Date: 11/20/17 Chief Complaint: Colon cancer screening Patient here today for colonoscopy. He has not had one for the last 10 years. Some abdominal pain at times. No change in bowel habits. No rectal bleeding. No family history of colon cancer. Past Medical History Past Medical History: Diabetes Mellitus, GERD/Reflux, Hyperlipidemia, Hypertension, Osteoarthritis (OA) Additional Past Medical History / Comment(s): restless leg syndrome, neuropathy legs & feet, states difficulty walking, unable to stand long., degenerative arthritis, uses cane or wheelchair., constipation. aortic aneurysm. History of Any Multi-Drug Resistant Organisms: None Reported Past Surgical History: Prostate Surgery Additional Past Surgical History / Comment(s): right wrist, penile implant, TURP. Past Anesthesia/Blood Transfusion Reactions: No Reported Reaction Past Psychological History: No Psychological Hx Reported Smoking Status: Former smoker Past Alcohol Use History: None Reported Additional Past Alcohol Use History / Comment(s): QUIT SMOKING 1979. Past Drug Use History: None Reported - Past Family History Father Family Medical History: Cancer Mother Family Medical History: Dementia Additional Family Medical History / Comment(s): alzheimers Brother(s) Family Medical History: Cancer Son(s) Family Medical History: Cancer Additional Family Medical History / Comment(s): PROSTATE CANCER Medications and Allergies Home Medications Medication Instructions Recorded Confirmed Type Atorvastatin [Lipitor] 20 mg PO HS 12/21/16 11/20/17 History Enalapril Maleate [Vasotec] 2.5 mg PO DAILY 12/21/16 11/20/17 History Glimepiride [Amaryl] 1 mg PO AC-BRKFST 12/21/16 11/20/17 History Magnesium Oxide [Magnesium] 300 mg PO DAILY 12/21/16 11/20/17 History Multivit-Min/FA/Lycopen/Lutein 1 tab PO DAILY 12/21/16 11/20/17 History [Centrum Silver Tablet] [place]-3/Dha/Epa/Fish Oil [Fish Oil 1 cap PO DAILY 12/21/16 11/20/17 History 500 mg Softgel] Omeprazole 20 mg PO DAILY 12/21/16 11/20/17 History Tamsulosin HCl [Flomax] 0.4 mg PO BID 12/21/16 11/20/17 History amLODIPine [Norvasc] 10 mg PO DAILY 12/21/16 11/20/17 History Aspirin [Children's Aspirin] 81 mg PO HS 01/01/17 11/20/17 History ALPRAZolam [Xanax] 0.5 mg PO DAILY PRN 01/09/17 11/20/17 History rOPINIRole HCL [Requip] 0.5 mg PO HS PRN 01/09/17 11/20/17 History traMADol HCL [Ultram] 100 mg PO BID PRN 01/09/17 11/20/17 History Ibuprofen [Motrin] 800 mg PO TID PRN 11/18/17 11/20/17 History Loratadine 10 mg PO DAILY 11/18/17 11/20/17 History Allergies Allergy/AdvReac Type Severity Reaction Status Date / Time No Known Allergies Allergy Verified 11/20/17 07:43 Surgical - Exam Vital Signs Temp Pulse Resp BP Pulse Ox 97.9 F 79 16 149/72 98 11/20/17 07:59 11/20/17 07:59 11/20/17 07:59 11/20/17 07:59 11/20/17 07:59 Physical exam: General: Well-developed, well-nourished HEENT: Normocephalic, sclerae nonicteric Abdomen: Nontender, nondistended Extremities: No edema Neuro: Alert and oriented Results - Labs Abnormal Lab Results - Last 24 Hours (Table) 11/20/17 Range/Units 07:54 POC Glucose (mg/dL) 100 H (75-99) mg/dL Assessment and Plan (1) Colon cancer screening Narrative/Plan: Will proceed with colonoscopy at this time. Current Visit: Yes Status: Acute Code(s): Z12.11 - ENCOUNTER FOR SCREENING FOR MALIGNANT NEOPLASM OF COLON SNOMED Code(s): 997123594
--- NOTE | 2017-11-20 08:28 | P.PCN ---
Date of Procedure: 11/20/17 Procedure(s) Performed: PREOPERATIVE DIAGNOSIS: Colon cancer screening POSTOPERATIVE DIAGNOSIS: Normal exam PROCEDURE: Colonoscopy ANESTHESIA: MAC SURGEON: Jed Denney M.D. SPECIMENS: None ENDOSCOPIC PROCEDURE: The patient was placed on the endoscopy table in the left decubitus position. The Olympus colonoscope was inserted into the anus and passed under direct visualization to the base of the cecum. The appendiceal orifice was visualized. From that point the scope was slowly withdrawn inspecting all surfaces carefully. There were no neoplastic inflammatory or polypoid lesions throughout the cecum, ascending, transverse, descending, sigmoid and rectum. There was no diverticulosis noted. Digital rectal examination was normal. The patient was taken to the recovery room in stable condition per anesthesia guidelines. RECOMMENDATIONS: Increase fiber
[2017-11-20 08:45] VITALS: BP 143/80; PULSE 65
== END 2017-11-20 09:09 | disposition home or self-care (01) ==
LOC: ORWHC2ENDO 07:03
PROVIDERS: ATTEND Surgery
DX: Z12.11 Encounter for screening for malignant neoplasm of colon (principal); E11.9 Type 2 diabetes mellitus without complications; E78.5 Hyperlipidemia, unspecified; G25.81 Restless legs syndrome; N40.0 Benign prostatic hyperplasia without lower urinary tract symptoms; I10 Essential (primary) hypertension; F03.90 Unspecified dementia, unspecified severity, without behavioral disturbance, psychotic disturbance, mood disturbance, and anxiety; K21.9 Gastro-esophageal reflux disease without esophagitis; M19.90 Unspecified osteoarthritis, unspecified site; Z79.82 Long term (current) use of aspirin; Z79.84 Long term (current) use of oral hypoglycemic drugs; Z87.891 Personal history of nicotine dependence; Z79.899 Other long term (current) drug therapy; Z81.8 Family history of other mental and behavioral disorders; Z80.42 Family history of malignant neoplasm of prostate
CPT/HCPCS: J2001; J2704; G0121; 45378

== ENCOUNTER → 2018-02-15 | Outpatient (CLI) | payer MEDICARE ==
--- NOTE | 2018-02-15 15:06 | XR ---
EXAMINATION TYPE: XR Hip LT and AP Pelvis DATE OF EXAM: 02/15/2018 COMPARISON: NONE HISTORY: Pain left hip TECHNIQUE: A single AP view of the pelvis is obtained. Two views of the left hip are obtained. FINDINGS: There is no acute fracture/dislocation evident in the pelvis. Postsurgical changes involvi ng the perineum noted. Arthropathy of the hips. SI joints symmetric. Osseous structures intact. Hypertrophic and degenerative change lower lumbar spine. IMPRESSION: 1. Degenerative change lower lumbar spine and left arthropathy.
== END | disposition home or self-care (01) ==
LOC: RADXRMAIN 14:27
PROVIDERS: ATTEND Family Medicine
DX: M25.552 Pain in left hip (principal); R26.2 Difficulty in walking, not elsewhere classified
CPT/HCPCS: 73502

== ENCOUNTER → 2019-08-04 | Outpatient (CLI) | payer MEDICARE ==
[2019-08-04 15:19] LABS: Basophils % (A) 1 %; Eosinophils # (A) 0.2 k/uL (0-0.7); Eosinophils % (A) 3 %; HCT 41.1 % (39.0-53.0); HGB 13.6 gm/dL (13.0-17.5); Lymphocytes # (A) 1.3 k/uL (1.0-4.8); Lymphocytes % (A) 24 %; MCH 32.7 pg (25.0-35.0); MCHC 33.1 g/dL (31.0-37.0); MCV 98.9 fL (80.0-100.0); Mean Platelet Volume 8.5; Monocytes # (A) 0.4 k/uL (0-1.0); Monocytes % (A) 7 %; Neutrophils # (A) 3.4 k/uL (1.3-7.7); Neutrophils % (A) 63 %; Platelet Count 238 k/uL (150-450); RBC 4.16 m/uL (4.30-5.90); RDW 12.8 % (11.5-15.5); WBC 5.4 k/uL (3.8-10.6)
[2019-08-04 15:25] LABS: Potassium 4.5 mmol/L (3.5-5.1)
== END | disposition home or self-care (01) ==
LOC: LABPAT 14:50
PROVIDERS: ATTEND Surgery
DX: Z01.812 Encounter for preprocedural laboratory examination (principal); I71.4 Abdominal aortic aneurysm, without rupture
CPT/HCPCS: 36415; 80051; 85025

== ENCOUNTER 2019-08-09 14:00 | Day surgery (SDC) | payer MEDICARE ==
[2019-08-04 13:32] VITALS: BMI 23.8
[2019-08-09 06:53] LABS: Glucose,Whole Blood 116 mg/dL (75-99)
--- NOTE | 2019-08-09 07:39 | P.GSHP ---
History of Present Illness H&P Date: 08/09/19 Chief Complaint: AAA 84-year-old gentleman with history of infrarenal AAA who is currently being followed by Dr. Schumacher presented to the office as a referral from Dr. Schumacher for possible intervention due to increased size of the aneurysm to greater than 5.5 cm. Patient also has complaints of left lower extremity pain with ambulation as well as at rest of his calf. He underwent CT angiogram which demonstrated a greater than 5.5 cm infrarenal abdominal aortic aneurysm with a focal occlusion of the left common iliac artery just after the bifurcation. Patient presents today for endovascular aortic repair. - Review of Systems All systems: negative (what was mentioned in HPI past medical history) Past Medical History Past Medical History: Diabetes Mellitus, GERD/Reflux, Hyperlipidemia, Hypertension, Osteoarthritis (OA), Vascular Disorder Additional Past Medical History / Comment(s): restless leg syndrome, sciatica rt side, neuropathy legs & feet, states difficulty walking, unable to stand long, degenerative arthritis, uses cane or wheelchair, constipation. aortic aneurysm. History of Any Multi-Drug Resistant Organisms: None Reported Past Surgical History: Prostate Surgery Additional Past Surgical History / Comment(s): right wrist, penile implant, TURP. monika cataracts Past Anesthesia/Blood Transfusion Reactions: No Reported Reaction Smoking Status: Former smoker - Past Family History Father Family Medical History: Cancer Mother Family Medical History: Dementia Additional Family Medical History / Comment(s): alzheimers Brother(s) Family Medical History: Cancer Son(s) Family Medical History: Cancer Additional Family Medical History / Comment(s): PROSTATE CANCER Medications and Allergies Home Medications Medication Instructions Recorded Confirmed Type Enalapril Maleate [Vasotec] 2.5 mg PO QAM 12/21/16 08/09/19 History Glimepiride [Amaryl] 1 - 2 mg PO AC-BRKFST 12/21/16 08/09/19 History Magnesium Oxide [Magnesium] 300 mg PO DAILY 12/21/16 08/09/19 History Multivit-Min/FA/Lycopen/Lutein 1 tab PO DAILY 12/21/16 08/09/19 History [Centrum Silver Tablet] [place]-3/Dha/Epa/Fish Oil [Fish Oil 1 cap PO DAILY 12/21/16 08/09/19 History 500 mg Softgel] Omeprazole 20 mg PO DAILY 12/21/16 08/09/19 History Tamsulosin HCl [Flomax] 0.4 mg PO BID 12/21/16 08/09/19 History amLODIPine [Norvasc] 10 mg PO QAM 12/21/16 08/09/19 History Aspirin [Children's Aspirin] 81 mg PO DAILY 01/01/17 08/09/19 History ALPRAZolam [Xanax] 0.5 mg PO TID 01/09/17 08/09/19 History rOPINIRole HCL [Requip] 0.5 mg PO HS PRN 01/09/17 08/09/19 History traMADol HCL [Ultram] 50 - 100 mg PO BID PRN 01/09/17 08/09/19 History Ibuprofen [Motrin] 800 mg PO TID PRN 11/18/17 08/04/19 History Loratadine 10 mg PO DAILY 11/18/17 08/04/19 History Gabapentin [Neurontin] 100 mg PO TID PRN 08/04/19 08/09/19 History Atorvastatin [Lipitor] 20 mg PO DAILY 08/09/19 08/09/19 History Docusate [Colace] 100 mg PO BID 08/09/19 08/09/19 History Allergies Allergy/AdvReac Type Severity Reaction Status Date / Time pregabalin [From Lyrica] Allergy Unknown Verified 08/09/19 06:21 Surgical - Exam Vital Signs Temp Pulse Resp BP Pulse Ox 98 F 93 18 189/84 98 08/09/19 06:35 08/09/19 06:35 08/09/19 06:35 08/09/19 06:35 08/09/19 06:35 Palpable DP, PT pulse on the right lower extremity. Nonpalpable femoral, DP or PT pulse left - General well developed, well nourished, no distress - Eyes PERRL, normal ocular movement - ENT hard of hearing normal pinna, normal nares - Neck no masses - Respiratory normal expansion - Cardiovascular Rhythm: regular - Abdomen Abdomen: soft, non tender - Integumentary no rash, no growths - Neurologic normal coordination, no normal sensation - Psychiatric oriented to time, oriented to person, oriented to place Results - Labs Abnormal Lab Results - Last 24 Hours (Table) 08/04/19 08/09/19 Range/Units 14:56 06:35 POC Glucose (mg/dL) 116 H (75-99) mg/dL Crossmatch See Detail Assessment and Plan Assessment: 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 Discussion was had with the patient and family if we are unable to cross the lesion then the main need to present back to the hospital for unibody graft and fem-fem bypass.
--- NOTE | 2019-08-09 10:08 | P.OP ---
Date of Procedure: 08/09/19 Preoperative Diagnosis: 1. 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 Left common iliac artery subtotal occlusion Postoperative Diagnosis: 1. Infrarenal AAA 2. 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 Ultrasound-guided bilateral common femoral artery access 2. Aortogram with selective retrograde left iliac angiogram 3. Failed attempt to cross left common iliac artery chronic total occlusion Anesthesia: GETA Surgeon: Pedro Luis Rouse Estimated Blood Loss (ml): 20 Pathology: none sent Condition: stable Disposition: PACU Indications for Procedure: 84-year-old gentleman with infrarenal AAA measuring 5.5 cm presents to the hospital today for endovascular aortic repair. Upon evaluation was noted that he had left lower extremity claudication as well as a subtotal occlusion of the left common iliac artery on CT angiogram and therefore presents today for revascularization of his left common iliac artery as well as the aneurysm repair. We did discuss with the family and if there is an inability to cross this lesion then he would need to return for a bypass and unibody graft. 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 A timeout was performed in normal fashion antibiotics were administered prior to accessed. Utilizing ultrasound bilateral common femoral arteries were visualized shown to be patent without any significant calcification. Utilizing ultrasound and Seldinger technique a 5-Sudanese sheaths were placed in bilateral common femoral arteries and patient was given heparin and followed with ACTs. Retrograde angiogram was then obtained of the left iliac system which demonstrated a flush occlusion just prior to the internal iliac artery takeoff. 035 Glidewire was then placed up the right femoral sheath into the aorta followed by pigtail catheter and aortogram was obtained. Upon aortogram it was noted that there was no aneurysm with no flow to the common iliac artery. There was no evidence of a takeoff of the common iliac artery on AP view and therefore multiple views were obtained trying to see if there is any evidence of lumen into the common iliac artery. Multiple wires were then utilized along with crossing catheters and attempt to cross the lesion which were unsuccessful from the retrograde access. At that time a steerable sheath was then placed in the right femoral artery and utilizing the steerable sheath attempt was performed to cross the lesion from an antegrade fashion. After multiple wires including stiff crossing catheters and wires it was unable to be crossed and therefore the procedure was concluded. All catheters and guidewires were removed final angiogram was obtained which demonstrated no perforation or extravasation from attempt at revascularization. Patient was administered protamine for reversal of heparin. The sheath were then removed and pressure was held for hemostasis. Patient had a palpable PT pulse on the right and stable signals on the left at the conclusion of the procedure. He was then sent to PACU for recovery. Patient will return next week for unibody placement and fem-fem bypass. Plan - Discharge Summary Discharge Rx Participant: Yes New Discharge Prescriptions: No Action Tamsulosin HCl [Flomax] 0.4 mg PO BID amLODIPine [Norvasc] 10 mg PO QAM Glimepiride [Amaryl] 1 - 2 mg PO AC-BRKFST Magnesium Oxide [Magnesium] 300 mg PO DAILY Enalapril Maleate [Vasotec] 2.5 mg PO QAM RX: Omeprazole 20 mg PO DAILY RX: Multivit-Min/FA/Lycopen/Lutein [Centrum Silver Tablet] 1 tab PO DAILY [place]-3/Dha/Epa/Fish Oil [Fish Oil 500 mg Softgel] 1 cap PO DAILY Aspirin [Children's Aspirin] 81 mg PO DAILY ALPRAZolam [Xanax] 0.5 mg PO TID traMADol HCL [Ultram] 50 - 100 mg PO BID PRN PRN Reason: Pain rOPINIRole HCL [Requip] 0.5 mg PO HS PRN PRN Reason: RLS RX: Loratadine 10 mg PO DAILY Ibuprofen [Motrin] 800 mg PO TID PRN PRN Reason: Pain Gabapentin [Neurontin] 100 mg PO TID PRN PRN Reason: Pain Docusate [Colace] 100 mg PO BID Atorvastatin [Lipitor] 20 mg PO DAILY Discharge Medication List Enalapril Maleate [Vasotec] 2.5 mg PO QAM 12/21/16 [History] Glimepiride [Amaryl] 1 - 2 mg PO AC-BRKFST 12/21/16 [History] Magnesium Oxide [Magnesium] 300 mg PO DAILY 12/21/16 [History] [place]-3/Dha/Epa/Fish Oil [Fish Oil 500 mg Softgel] 1 cap PO DAILY 12/21/16 [History] RX: Multivit-Min/FA/Lycopen/Lutein [Centrum Silver Tablet] 1 tab PO DAILY 12/21/16 [History] RX: Omeprazole 20 mg PO DAILY 12/21/16 [History] Tamsulosin HCl [Flomax] 0.4 mg PO BID 12/21/16 [History] amLODIPine [Norvasc] 10 mg PO QAM 12/21/16 [History] Aspirin [Children's Aspirin] 81 mg PO DAILY 01/01/17 [History] ALPRAZolam [Xanax] 0.5 mg PO TID 01/09/17 [History] rOPINIRole HCL [Requip] 0.5 mg PO HS PRN 01/09/17 [History] traMADol HCL [Ultram] 50 - 100 mg PO BID PRN 01/09/17 [History] Ibuprofen [Motrin] 800 mg PO TID PRN 11/18/17 [History] RX: Loratadine 10 mg PO DAILY 11/18/17 [History] Gabapentin [Neurontin] 100 mg PO TID PRN 08/04/19 [History] Atorvastatin [Lipitor] 20 mg PO DAILY 08/09/19 [History] Docusate [Colace] 100 mg PO BID 08/09/19 [History]
[2019-08-09 10:23] LABS: Glucose,Whole Blood 122 mg/dL (75-99)
--- NOTE | 2019-08-09 10:29 | IR ---
Fluoroscopy HISTORY: Peripheral vascular occlusive disease and abdominal aortic aneurysm 17 minutes fluoroscopy time supplied to the referring clinician. 212 intraoperative C-arm images doc ument the procedure. See dictated report from vascular surgery.
[2019-08-09] MEDS: ALPRAZolam 0.5 MG TAB PO SCH ×3 (12:04→20:15)
[2019-08-09] MEDS: TAMSULOSIN 0.4 MG CAP.ER.24H PO SCH ×2 (12:04→20:15)
[2019-08-09] MEDS: GABAPENTIN 100 MG CAP PO PRN ×3 (12:05→23:18)
[2019-08-09] MEDS: traMADol 50 MG TAB PO PRN ×3 (12:06→23:18)
[~2019-08-09 14:00] MED LIST changes: +BENZOCAINE/MENTHOL LOZENG 1 EACH LOZENGE MUCOUS MEM PRN; +GLYCOPYRROLATE 0.2 MG/ML 2 ML VIAL ONE; +HEPARIN SODIUM,PORCINE 5,000 UNIT/ML 1 ML VIAL ONE; +LACTATED RINGERS 1,000 ML IV ONE; -LACTATED RINGERS 1,000 ML IV SCH; +LIDOCAINE 1% INJ 10MG/ML (20 ML MDV) ONE; +METOPROLOL SUCCINATE (ER) 50 MG TAB.ER.24H PO ONE; +MIDAZOLAM 2 MG/2 ML VIAL ONE; +NEOSTIGMINE 1 MG/ML 10 ML VIAL ONE; +PROPOFOL 10 MG/ML 20 ML VIAL IV ONE; +PROTAMINE SULFATE 10 MG/ML 5 ML VIAL IV ONE; +ROCURONIUM BROMIDE 10 MG/ML 10 ML VIAL IV ONE; +SODIUM CHLORIDE 0.9% 1,000 ML in EMPTY BAG 1 BAG IV ONE; +SUCCINYLCHOLINE CHLORIDE 100 MG/5 ML SYR IV ONE; +fentaNYL (PF) 50 MCG/ML 2 ML AMP ONE; +hydrALAZINE HCL 20 MG/ML 1 ML VIAL ONE; +traMADol 50 MG TAB PO PRN
[2019-08-09] MEDS ORDERED: HYDROmorphone 1 MG/ML 1 ML SYRINGE ONE ×2 (14:49→17:01)
[2019-08-09] MEDS: HYDROmorphone 0.5 MG/0.5 ML SYRINGE IVP PRN ×2 (15:00→17:11)
[2019-08-09] MEDS ORDERED: LIDOCAINE URO-JET JELLY 2% 5 ML KIT URETHRAL ONE (16:00)
[2019-08-09 18:01] LABS: Glucose,Whole Blood 164 mg/dL (75-99)
--- NOTE | 2019-08-09 18:54 | P.GSCN ---
History of Present Illness Consult date: 08/09/19 Reason for Consult: Urinary retention Requesting physician: Pedro Luis Rouse History of present illness: The patient is an 84-year-old white male well known to Dr. Goyal. He underwent a TURP in December 2016 for urinary retention. He underwent an endovascular procedure earlier today to treat occlusion of the left common iliac artery. He has been unable to void postoperatively, and is experiencing significant discomfort as a result of this. I am consulted for this reason. Review of Systems - Constitutional Denies chills, Denies fever - Genitourinary Reports urinary retention, Denies hematuria Past Medical History Past Medical History: Diabetes Mellitus, GERD/Reflux, Hyperlipidemia, Hypertension, Osteoarthritis (OA), Vascular Disorder Additional Past Medical History / Comment(s): restless leg syndrome, sciatica rt side, neuropathy legs & feet, states difficulty walking, unable to stand long, degenerative arthritis, uses cane or wheelchair, constipation. aortic aneurysm. History of Any Multi-Drug Resistant Organisms: None Reported Past Surgical History: Prostate Surgery Additional Past Surgical History / Comment(s): right wrist, penile implant, TURP. monika cataracts Past Anesthesia/Blood Transfusion Reactions: No Reported Reaction Smoking Status: Former smoker - Past Family History Father Family Medical History: Cancer Mother Family Medical History: Dementia Additional Family Medical History / Comment(s): alzheimers Brother(s) Family Medical History: Cancer Son(s) Family Medical History: Cancer Additional Family Medical History / Comment(s): PROSTATE CANCER Medications and Allergies Home Medications Medication Instructions Recorded Confirmed Type Enalapril Maleate [Vasotec] 2.5 mg PO QAM 12/21/16 08/09/19 History Glimepiride [Amaryl] 1 - 2 mg PO AC-BRKFST 12/21/16 08/09/19 History Magnesium Oxide [Magnesium] 300 mg PO DAILY 12/21/16 08/09/19 History Multivit-Min/FA/Lycopen/Lutein 1 tab PO DAILY 12/21/16 08/09/19 History [Centrum Silver Tablet] [place]-3/Dha/Epa/Fish Oil [Fish Oil 1 cap PO DAILY 12/21/16 08/09/19 History 500 mg Softgel] Omeprazole 20 mg PO DAILY 12/21/16 08/09/19 History Tamsulosin HCl [Flomax] 0.4 mg PO BID 12/21/16 08/09/19 History amLODIPine [Norvasc] 10 mg PO QAM 12/21/16 08/09/19 History Aspirin [Children's Aspirin] 81 mg PO DAILY 01/01/17 08/09/19 History ALPRAZolam [Xanax] 0.5 mg PO TID 01/09/17 08/09/19 History rOPINIRole HCL [Requip] 0.5 mg PO HS PRN 01/09/17 08/09/19 History traMADol HCL [Ultram] 50 - 100 mg PO BID PRN 01/09/17 08/09/19 History Ibuprofen [Motrin] 800 mg PO TID PRN 11/18/17 08/04/19 History Loratadine 10 mg PO DAILY 11/18/17 08/04/19 History Gabapentin [Neurontin] 100 mg PO TID PRN 08/04/19 08/09/19 History Atorvastatin [Lipitor] 20 mg PO DAILY 08/09/19 08/09/19 History Docusate [Colace] 100 mg PO BID 08/09/19 08/09/19 History Allergies Allergy/AdvReac Type Severity Reaction Status Date / Time pregabalin [From Lyrica] Allergy Unknown Verified 08/09/19 06:21 Surgical - Exam Vital Signs Temp Pulse Resp BP Pulse Ox 98 F 93 18 189/84 98 08/09/19 06:35 08/09/19 06:35 08/09/19 06:35 08/09/19 06:35 08/09/19 06:35 - General well developed, well nourished, no distress - Respiratory normal respiratory effort - Abdomen Abdomen: soft, non tender, no guarding, no rigid, no rebound - Genitourinary normal penis with no external lesions, testicles non-tender - Psychiatric oriented to time, oriented to person, oriented to place, speech is normal, memory intact Results - Labs Abnormal Lab Results - Last 24 Hours (Table) 08/09/19 08/09/19 08/09/19 Range/Units 06:35 10:21 17:59 POC Glucose (mg/dL) 116 H 122 H 164 H (75-99) mg/dL Assessment and Plan (1) Urinary retention Current Visit: No Status: Acute Code(s): R33.9 - RETENTION OF URINE, UNSPECIFIED SNOMED Code(s): 344039149 Plan: The penis was prepped and draped sterilely. 2% lidocaine gel was administered intraurethrally. A 16-Lao coud-tip Boucher catheter was then advanced into the bladder, with return of 1700 mL of clear yellow urine. The degree of bladder distention suggests the possibility of chronic urinary retention. The patient is scheduled to undergo a repeat vascular procedure next week. I have suggested that the Boucher catheter remain in place until that procedure has been completed. He will follow up with Dr. Goyal for a voiding trial. However, I believe it is likely that the urinary retention will persist and he may require long-term intermittent self-catheterization. Please notify me if I can be of any further assistance.
[2019-08-09] MEDS: DOCUSATE 100 MG CAP PO SCH (20:15)
[2019-08-10 01:00] VITALS: TEMP 98.3
[2019-08-10] MEDS ORDERED: PANTOPRAZOLE 40 MG TABLET PO SCH (07:30)
[2019-08-10] MEDS ORDERED: GLIMEPIRIDE 2 MG TAB PO SCH ×2 (07:30)
[2019-08-10 07:33] LABS: Glucose,Whole Blood 122 mg/dL (75-99)
[2019-08-10 07:45] VITALS: BP 167/82; PULSE 82; RESP 12
[2019-08-10] MEDS ORDERED: ASPIRIN 81 MG PO SCH (09:00)
[2019-08-10] MEDS ORDERED: LORATADINE 10 MG TAB PO SCH (09:00)
[2019-08-10] MEDS ORDERED: LISINOPRIL 5 MG TAB PO SCH (09:00)
[2019-08-10] MEDS ORDERED: amLODIPine 10 MG TAB PO SCH (09:00)
[2019-08-10] MEDS ORDERED: ATORVASTATIN 20 MG TAB PO SCH (09:00)
[2019-08-10] MEDS ORDERED: ONDANSETRON 4 MG/2 ML VIAL IVP PRN (09:51)
--- NOTE | 2019-08-10 10:16 | P.DS ---
Providers Date of admission: 08/09/19 05:46 Attending physician: Pedro Luis Rouse DO Consults: 08/09/19 05:48 Consult to Anesthesia Routine Consulting Provider: Anesthesia,Services Consult Reason/Comments: General anesthesia for Aortic Stent procedure 08/09/19 14:18 Consult Physician Routine Consulting Provider: Jim Goyal Consult Reason/Comments: RETENTION Do you want consulting provider notified?: Yes Primary care physician: [facility] Course: Patient evaluated and seen lying in bed. Patient states had some nausea with vomiting this morning unable to eat his breakfast Luis Carlos tolerating his coffee. Patient was scheduled or outpatient endovascular aortic repair with Dr. Rouse. Patient had a failed attempt to cross left common iliac artery due to chronic total occlusion. And is scheduled to see Dr. Rouse after discharge to schedule bypass in unibody graft. However following the patient's procedure he was unable to void, therefore urology consult was placed and patient was seen by Dr. Pavon. Patient has a history of enlarged prostate who underwent a TURP in the past, and has chronic urinary retention. He had a indwelling urinary catheter placed, and will be discharged with the Boucher catheter to follow-up with urology after discharge. Patient was able to tolerate regular diet, ambulate without difficulty. Assessment: General appearance: The patient is alert, oriented, in no acute distress. HET: Head is normocephalic and atraumatic. Pupils are equal and reactive. Oropharynx is clear without lesions. Neck: Supple without lymphadenopathy. Trachea midline. Heart: S1 S2. Regular rate and rhythm. Lungs: No crackles or wheezes are heard. Abdomen: Soft, nontender, nondistended with bowel sounds. No peritoneal signs. No palpable organomegaly or masses. Groins: Right groin with moderate amount of ecchymosis, no palpable hematoma, or bleeding. Left groin with minimal amount of ecchymosis no active bleeding and no palpable hematoma. Extremities: Normal skin color and turgor. No cyanosis, rash, ulceration, clubbing, or edema. Bilateral palpable femoral pulses. B/L lower extremities with PT doppler signal, left DP doppler signal. Neurological: No focal deficits. Strength and sensation are grossly intact. Assessment: Infra renal abdominal aortic aneurysm Left common iliac artery occlusion Failed attempt to cross left common iliac artery, chronic total occlusion The above dictated assessment and findings were discussed with Dr. Boucher. The impression and plan of care have been directed as dictated. Patient Condition at Discharge: Good Plan - Discharge Summary Discharge Rx Participant: Yes New Discharge Prescriptions: No Action Tamsulosin HCl [Flomax] 0.4 mg PO BID amLODIPine [Norvasc] 10 mg PO QAM Glimepiride [Amaryl] 1 - 2 mg PO AC-BRKFST Magnesium Oxide [Magnesium] 300 mg PO DAILY Enalapril Maleate [Vasotec] 2.5 mg PO QAM Omeprazole 20 mg PO DAILY Multivit-Min/FA/Lycopen/Lutein [Centrum Silver Tablet] 1 tab PO DAILY [place]-3/Dha/Epa/Fish Oil [Fish Oil 500 mg Softgel] 1 cap PO DAILY Aspirin [Children's Aspirin] 81 mg PO DAILY ALPRAZolam [Xanax] 0.5 mg PO TID traMADol HCL [Ultram] 50 - 100 mg PO BID PRN PRN Reason: Pain rOPINIRole HCL [Requip] 0.5 mg PO HS PRN PRN Reason: RLS Loratadine 10 mg PO DAILY Ibuprofen [Motrin] 800 mg PO TID PRN PRN Reason: Pain Gabapentin [Neurontin] 100 mg PO TID PRN PRN Reason: Pain Docusate [Colace] 100 mg PO BID Atorvastatin [Lipitor] 20 mg PO DAILY Discharge Medication List Enalapril Maleate [Vasotec] 2.5 mg PO QAM 12/21/16 [History] Glimepiride [Amaryl] 1 - 2 mg PO AC-BRKFST 12/21/16 [History] Magnesium Oxide [Magnesium] 300 mg PO DAILY 12/21/16 [History] Multivit-Min/FA/Lycopen/Lutein [Centrum Silver Tablet] 1 tab PO DAILY 12/21/16 [History] [place]-3/Dha/Epa/Fish Oil [Fish Oil 500 mg Softgel] 1 cap PO DAILY 12/21/16 [History] Omeprazole 20 mg PO DAILY 12/21/16 [History] Tamsulosin HCl [Flomax] 0.4 mg PO BID 12/21/16 [History] amLODIPine [Norvasc] 10 mg PO QAM 12/21/16 [History] Aspirin [Children's Aspirin] 81 mg PO DAILY 01/01/17 [History] ALPRAZolam [Xanax] 0.5 mg PO TID 01/09/17 [History] rOPINIRole HCL [Requip] 0.5 mg PO HS PRN 01/09/17 [History] traMADol HCL [Ultram] 50 - 100 mg PO BID PRN 01/09/17 [History] Ibuprofen [Motrin] 800 mg PO TID PRN 11/18/17 [History] Loratadine 10 mg PO DAILY 11/18/17 [History] Gabapentin [Neurontin] 100 mg PO TID PRN 08/04/19 [History] Atorvastatin [Lipitor] 20 mg PO DAILY 08/09/19 [History] Docusate [Colace] 100 mg PO BID 08/09/19 [History] Follow up Appointment(s)/Referral(s): Jim Goyal MD [STAFF PHYSICIAN] - 2 Weeks Pedro Luis Rouse DO [STAFF PHYSICIAN] - 1 Week Activity/Diet/Wound Care/Special Instructions: No strenuous activity or heavy lifting greater than 5-10 pounds. May shower, no tub bathing until follow-up with Dr. Rouse Discharge Disposition: HOME SELF-CARE
[2019-08-10] MEDS: DOCUSATE 100 MG CAP PO SCH (10:38)
[2019-08-10] MEDS: ALPRAZolam 0.5 MG TAB PO SCH (10:43)
[2019-08-10] MEDS: TAMSULOSIN 0.4 MG CAP.ER.24H PO SCH (10:43)
[2019-08-10] MEDS: GABAPENTIN 100 MG CAP PO PRN (10:46)
[2019-08-10] MEDS: traMADol 50 MG TAB PO PRN (10:48)
[2019-08-10 11:56] LABS: Glucose,Whole Blood 140 mg/dL (75-99)
== END 2019-08-10 16:17 | disposition home or self-care (01) ==
LOC: OR 14:00 → 4SSUR 16:10 → 2ORMAIN 16:10 → OR 08-10 16:17 → UNDODISIN 08-10 16:17
PROVIDERS: ATTEND Surgery
DX: I74.5 Embolism and thrombosis of iliac artery (principal); I70.92 Chronic total occlusion of artery of the extremities; I71.4 Abdominal aortic aneurysm, without rupture; R33.9 Retention of urine, unspecified; E11.42 Type 2 diabetes mellitus with diabetic polyneuropathy; E11.51 Type 2 diabetes mellitus with diabetic peripheral angiopathy without gangrene; I10 Essential (primary) hypertension; E78.5 Hyperlipidemia, unspecified; K21.9 Gastro-esophageal reflux disease without esophagitis; M19.90 Unspecified osteoarthritis, unspecified site; G25.81 Restless legs syndrome; K59.00 Constipation, unspecified; Z79.82 Long term (current) use of aspirin; Z79.84 Long term (current) use of oral hypoglycemic drugs; Z99.3 Dependence on wheelchair; Z98.890 Other specified postprocedural states; Z98.42 Cataract extraction status, left eye; Z98.41 Cataract extraction status, right eye; Z87.891 Personal history of nicotine dependence; Z80.9 Family history of malignant neoplasm, unspecified; Z81.8 Family history of other mental and behavioral disorders; Z80.42 Family history of malignant neoplasm of prostate; Z88.6 Allergy status to analgesic agent
CPT/HCPCS: 51702; 36200; 75625; 76937; 86900 ×2; 86901 ×2; 86850 ×2; 86920; C1769 ×7; C1894 ×2; C1887; C1760; C2628; J2250; J2720; J0360; J1644; J2710; J2001; J3010; J0330; J2704; J1170

== ENCOUNTER → 2019-08-10 | Outpatient (CLI) | payer MEDICARE | END | disposition home or self-care (01) | LOC: LABPAT 16:42 | PROVIDERS: ATTEND Surgery | DX: Z53.9 Procedure and treatment not carried out, unspecified reason (principal) ==

== ENCOUNTER 2019-08-17 05:54 | Inpatient (IN) | payer MEDICARE ==
[2019-08-11 14:58] VITALS: BMI 24.2
[~2019-08-17 05:54] MED LIST changes: -BENZOCAINE/MENTHOL LOZENG 1 EACH LOZENGE MUCOUS MEM PRN; +DEXAMETHASONE SOD PHOSPHATE 10 MG/ML 1 ML VIAL IV ONE; -GLYCOPYRROLATE 0.2 MG/ML 2 ML VIAL ONE; -HEPARIN SODIUM,PORCINE 5,000 UNIT/ML 1 ML VIAL ONE; +HYDROmorphone 0.5 MG/0.5 ML SYRINGE IVP PRN; -LACTATED RINGERS 1,000 ML IV ONE; +LIDOCAINE 1% 20 ML VIAL (10MG/ML) FOR IV START INTRADERMA PRN; -LIDOCAINE 1% INJ 10MG/ML (20 ML MDV) ONE; -METOPROLOL SUCCINATE (ER) 50 MG TAB.ER.24H PO ONE; +MIDAZOLAM 2 MG/2 ML VIAL IV PRN; -MIDAZOLAM 2 MG/2 ML VIAL ONE; -NEOSTIGMINE 1 MG/ML 10 ML VIAL ONE; +ONDANSETRON 4 MG/2 ML VIAL IVP ONE; -PROPOFOL 10 MG/ML 20 ML VIAL IV ONE; -PROTAMINE SULFATE 10 MG/ML 5 ML VIAL IV ONE; -ROCURONIUM BROMIDE 10 MG/ML 10 ML VIAL IV ONE; -SODIUM CHLORIDE 0.9% 1,000 ML in EMPTY BAG 1 BAG IV ONE; -SUCCINYLCHOLINE CHLORIDE 100 MG/5 ML SYR IV ONE; -fentaNYL (PF) 50 MCG/ML 2 ML AMP ONE; -hydrALAZINE HCL 20 MG/ML 1 ML VIAL ONE; -traMADol 50 MG TAB PO PRN
[2019-08-17] MEDS: LACTATED RINGERS 1,000 ML IV SCH ×2 (06:53→16:48)
[2019-08-17 07:04] LABS: Glucose,Whole Blood 121 mg/dL (75-99)
[2019-08-17] MEDS ORDERED: PHENYLEPHRINE-0.9% NACL SYG 1 MG/10 ML SYRINGE ONE (07:24)
[2019-08-17] MEDS ORDERED: fentaNYL (PF) 50 MCG/ML 2 ML AMP ONE (07:24)
[2019-08-17] MEDS ORDERED: LABETALOL 5 MG/ML VIAL MDV ONE (07:24)
[2019-08-17] MEDS ORDERED: MIDAZOLAM 2 MG/2 ML VIAL ONE (07:24)
[2019-08-17] MEDS ORDERED: LIDOCAINE 1% INJ 10MG/ML (20 ML MDV) ONE (07:24)
[2019-08-17] MEDS ORDERED: ROCURONIUM BROMIDE 10 MG/ML 10 ML VIAL IV ONE (07:24)
[2019-08-17] MEDS ORDERED: HEPARIN SODIUM,PORCINE 10,000 UNIT/ML 1 ML VIAL ONE (07:24)
[2019-08-17] MEDS ORDERED: GLYCOPYRROLATE 0.2 MG/ML 2 ML VIAL ONE (07:24)
[2019-08-17] MEDS ORDERED: NEOSTIGMINE 1 MG/ML 10 ML VIAL ONE (07:24)
[2019-08-17] MEDS ORDERED: ePHEDrine SULFATE/0.9% NACL/PF 50 MG/5 ML SYRINGE IV ONE (07:24)
[2019-08-17] MEDS ORDERED: HYDROmorphone (PF) 1 MG/ML ONE (07:24)
[2019-08-17] MEDS ORDERED: SUCCINYLCHOLINE CHLORIDE 100 MG/5 ML SYR IV ONE (07:24)
[2019-08-17] MEDS ORDERED: PROPOFOL 10 MG/ML 20 ML VIAL IV ONE (07:24)
[2019-08-17] MEDS ORDERED: fentaNYL (PF) 50 MCG/ML 2 ML AMP IVP PRN (07:57)
[2019-08-17] MEDS ORDERED: LACTATED RINGERS 1,000 ML IV ONE ×3 (08:40→10:38)
[2019-08-17] MEDS ORDERED: LIDOCAINE 1% INJ 10MG/ML (20 ML MDV) SQ ONE (09:01)
--- NOTE | 2019-08-17 09:33 | FL ---
Fluoroscopy HISTORY: Aortic aneurysm 8 minutes 36 seconds fluoroscopy time supplied to the referring clinician. 518 intraoperative C-arm images document the procedure. See dictated report from vascular surgery.
[2019-08-17] MEDS ORDERED: GELATIN SPONGE,ABSORB (LARGE) 1 EACH SPONGE TOPICAL ONE (09:42)
[2019-08-17] MEDS ORDERED: THROMBIN (BOVINE) 5,000 UNIT VIAL TOPICAL ONE ×3 (10:36→10:57)
[2019-08-17] MEDS ORDERED: IOPAMIDOL-370 100ML BTL MISCELLANE ONE (10:37)
[2019-08-17] MEDS ORDERED: diphenhydrAMINE 50 MG/ML 1 ML VIAL IVP ONE (11:38)
[2019-08-17] MEDS ORDERED: HYDROcodone/APAP 5-325MG 1 EACH TAB PO PRN (11:48)
[2019-08-17] MEDS ORDERED: IBUPROFEN 800 MG TAB PO PRN (11:51)
[2019-08-17] MEDS ORDERED: GABAPENTIN 100 MG CAP PO PRN (11:51)
[2019-08-17] MEDS ORDERED: traMADol 50 MG TAB PO PRN (11:51)
[2019-08-17] MEDS ORDERED: SODIUM CHLORIDE 0.9% 1,000 ML IV ONE (12:24)
--- NOTE | 2019-08-17 12:35 | FL ---
Fluoroscopy HISTORY: Left iliac occlusion 2 minutes 33 seconds fluoroscopy time supplied to the referring clinician. 2038 intraoperative C-arm images document the procedure. See dictated report from vascular surgery.
[2019-08-17 13:07] LABS: Glucose,Whole Blood 167 mg/dL (75-99)
--- NOTE | 2019-08-17 14:58 | P.CNPUL ---
History of Present Illness Consult date: 08/17/19 Chief complaint: Infrarenal abdominal aortic aneurysm History of present illness: 84-year-old white male patient of Dr. Jimenez with history of infrarenal AAA which recently showed increase in size to greater than 5.5 cm. Patient was having symptoms of left lower extremity pain with ambulation and pain in the rest of his calf. Patient underwent CT angiogram which demonstrated a greater than 5.5 cm infrarenal abdominal aortic aneurysm in the total occlusion of the left common iliac artery just after the bifurcation. On 08/09/2019 patient had failed attempt to cross left common iliac artery. Following the procedure patient developed urinary retention, he was hospitalized overnight and discharged home on 08/10/2019 after being seen by urology. Today on 08/17/2019 patient came in for endovascular aortic repair by Dr. Rouse. He seen in the postoperative period in the intensive care unit, he is a little groggy, but in no acute distress. Currently on 3 L of oxygen his pulse ox is 97-99%, he is afebrile, hemodynamically patient is stable, lung sounds are clear, denies any pain, bilateral groin incisions are clean dry and intact, distal pulses are intact. His past medical history is positive for diabetes mellitus type 2, GERD /reflux, hypertension, hyperlipidemia osteoarthritis, prostate disorder status post TURP, and penile implant, former smoker. Review of Systems All systems: negative Constitutional: Denies chills, Denies fever Eyes: denies blurred vision, denies pain Ears, nose, mouth and throat: Denies headache, Denies sore throat Cardiovascular: Denies chest pain, Denies shortness of breath Respiratory: Denies cough Gastrointestinal: Denies abdominal pain, Denies diarrhea, Denies nausea, Denies vomiting Musculoskeletal: Denies myalgias Integumentary: Denies pruritus, Denies rash Neurological: Denies numbness, Denies weakness Psychiatric: Denies anxiety, Denies depression Endocrine: Denies fatigue, Denies weight change Past Medical History Past Medical History: Diabetes Mellitus, GERD/Reflux, Hyperlipidemia, Hypertension, Osteoarthritis (OA), Prostate Disorder, Vascular Disorder Additional Past Medical History / Comment(s): currently has IDC, restless leg syndrome, sciatica rt side, neuropathy legs & feet, states difficulty walking, unable to stand long, degenerative arthritis, uses cane or wheelchair, constipation. aortic aneurysm. History of Any Multi-Drug Resistant Organisms: None Reported Past Surgical History: Prostate Surgery Additional Past Surgical History / Comment(s): right wrist, penile implant, TURP. monika cataracts Past Anesthesia/Blood Transfusion Reactions: No Reported Reaction Smoking Status: Former smoker - Past Family History Father Family Medical History: Cancer Mother Family Medical History: Dementia Additional Family Medical History / Comment(s): alzheimers Brother(s) Family Medical History: Cancer Son(s) Family Medical History: Cancer Additional Family Medical History / Comment(s): PROSTATE CANCER Medications and Allergies Home Medications Medication Instructions Recorded Confirmed Type Enalapril Maleate [Vasotec] 2.5 mg PO QAM 12/21/16 08/11/19 History Glimepiride [Amaryl] 1 - 2 mg PO AC-BRKFST 12/21/16 08/11/19 History Magnesium Oxide [Magnesium] 300 mg PO DAILY 12/21/16 08/11/19 History Multivit-Min/FA/Lycopen/Lutein 1 tab PO DAILY 12/21/16 08/11/19 History [Centrum Silver Tablet] [place]-3/Dha/Epa/Fish Oil [Fish Oil 1 cap PO DAILY 12/21/16 08/11/19 History 500 mg Softgel] Omeprazole 20 mg PO DAILY 12/21/16 08/11/19 History Tamsulosin HCl [Flomax] 0.4 mg PO BID 12/21/16 08/11/19 History amLODIPine [Norvasc] 10 mg PO QAM 12/21/16 08/11/19 History Aspirin [Children's Aspirin] 81 mg PO DAILY 01/01/17 08/11/19 History ALPRAZolam [Xanax] 0.5 mg PO TID 01/09/17 08/11/19 History rOPINIRole HCL [Requip] 0.5 mg PO HS PRN 01/09/17 08/11/19 History traMADol HCL [Ultram] 50 - 100 mg PO BID PRN 01/09/17 08/11/19 History Ibuprofen [Motrin] 800 mg PO TID PRN 11/18/17 08/11/19 History Loratadine 10 mg PO DAILY 11/18/17 08/11/19 History Gabapentin [Neurontin] 100 mg PO TID PRN 08/04/19 08/11/19 History Atorvastatin [Lipitor] 20 mg PO DAILY 08/09/19 08/11/19 History Docusate [Colace] 100 mg PO BID 08/09/19 08/11/19 History Allergies Allergy/AdvReac Type Severity Reaction Status Date / Time pregabalin [From Lyrica] Allergy Unknown Verified 08/17/19 06:39 Physical Exam Vitals: Vital Signs Temp Pulse Pulse Pulse Resp BP BP 08/17/19 14:10 68 12 122/50 08/17/19 14:00 66 12 122/57 08/17/19 13:50 67 14 122/57 08/17/19 13:40 63 12 119/54 08/17/19 13:30 68 12 125/64 08/17/19 13:20 110/62 08/17/19 13:10 110/62 08/17/19 13:02 110/62 08/17/19 12:34 51 L 16 112/56 08/17/19 12:17 56 L 16 112/56 08/17/19 12:01 58 L 16 106/49 08/17/19 11:45 57 L 16 106/49 08/17/19 11:34 97.5 F L 59 L 16 118/40 08/17/19 06:35 98.5 F 73 20 143/79 BP BP Pulse Ox 08/17/19 14:10 97 08/17/19 14:00 99 08/17/19 13:50 96 08/17/19 13:40 96 08/17/19 13:30 97 08/17/19 13:20 08/17/19 13:10 08/17/19 13:02 08/17/19 12:34 98 08/17/19 12:17 139/46 98 08/17/19 12:01 140/45 98 08/17/19 11:45 119/67 100 08/17/19 11:34 118/40 96 08/17/19 06:35 146/85 96 Intake and Output 08/16/19 08/17/19 08/17/19 22:59 06:59 14:59 Intake Total 300 1550 Output Total 1000 Balance 300 550 Intake: IV 300 1550 Output: Urine 850 Estimated Blood Loss 150 Other: Weight 83.5 kg ABP, PAP, CO, CI - Last 8 Hours Arterial Blood Pressure 139/44 Arterial Blood Pressure 136/43 Arterial Blood Pressure 145/43 Arterial Blood Pressure 151/44 Arterial Blood Pressure 147/48 Arterial Blood Pressure 155/48 Arterial Blood Pressure 155/51 GENERAL EXAM: Somewhat, but easily arousable, 84-year-old white male, on 3 L of oxygen with a pulse ox of 97% comfortable in no apparent distress. HEAD: Normocephalic/atraumatic. EYES: Normal reaction of pupils, equal size. Conjunctiva pink, sclera white. NOSE: Clear with pink turbinates. THROAT: No erythema or exudates. NECK: No masses, no JVD, no thyroid enlargement, no adenopathy. CHEST: No chest wall deformity. Symmetrical expansion. LUNGS: Equal air entry with no crackles, wheeze, rhonchi or dullness. CVS: Regular rate and rhythm, normal S1 and S2, no gallops, no murmurs, no rubs ABDOMEN: Soft, nontender. No hepatosplenomegaly, normal bowel sounds, no guarding or rigidity. EXTREMITIES: No clubbing, no edema, no cyanosis, 2+ pulses and upper and lower extremities. MUSCULOSKELETAL: Muscle strength and tone normal. SPINE: No scoliosis or deformity SKIN: No rashes, bilateral groin incisions are clean dry and intact CENTRAL NERVOUS SYSTEM: Alert and oriented -3. No focal deficits, tone is normal in all 4 extremities. PSYCHIATRIC: Alert and oriented -3. Appropriate affect. Intact judgment and insight. Results - Laboratory Findings Abnormal lab findings: Abnormal Labs 08/17/19 08/17/19 06:46 12:55 POC Glucose (mg/dL) 121 H 167 H Assessment and Plan Plan: Assessment: #1. Enlarging infrarenal abdominal aortic aneurysm and total left common iliac artery occlusion, status post endovascular repair on 08/17/2019, postoperative day 0 #2. Previous failed attempt to cross left common iliac artery on 08/09/2019 #3. Diabetes mellitus type 2 #4. Hypertension #5. Hyperlipidemia #6. GERD/reflux #7. Osteoarthritis #9. Degenerative arthritis, neuropathy in the legs and feet #10. Prostate disorder, status post TURP, and penile implant Plan: Continue current medical treatment, continue close hemodynamic monitoring in the intensive care unit, antibiotics per vascular surgery, maintain pain control, no respiratory difficulty, vital signs are stable, GI and DVT prophylaxis, home medications have been reordered. We'll continue to follow I performed a history & physical examination of the patient and discussed their management with my nurse practitioner, Natasha Barber. I reviewed the nurse practitioner's note and agree with the documented findings and plan of care. Lung sounds are positive for clear breath sounds. The findings and the impression was discussed with the patient. I attest to the documentation by the nurse practitioner. Time with Patient: Greater than 30
[2019-08-17] MEDS: ALPRAZolam 0.5 MG TAB PO SCH ×2 (16:54→21:03)
[2019-08-17] MEDS: SODIUM CHLORIDE 0.9% 1,000 ML IV SCH (16:54)
--- NOTE | 2019-08-17 17:21 | P.OP ---
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 #2 endovascular aortic repair with Medtronic aortoiliac unibody graft #3 aortogram #4 femoral to femoral artery bypass #5 selective right femoral popliteal, tibial angiogram #6 selective left femoral popliteal, tibial angiogram #7 prevena incisional vac placement Surgeon: Pedro Luis Rouse DO Anesthesia: GETA Estimated blood loss: 150cc Complications: None Condition: Stable Disposition: Multiphasic PT signal on the left, monophasic PT signal on the right Indications: 84-year-old gentleman with history of AAA and left common iliac artery occlusion presents to the hospital for elective aorta unibody graft placement and femoral to femoral artery bypass. Patient recently had an attempt at revascularization of his left common iliac artery without success and presents today for procedure. Patient did state having difficulty with am bulation complaining of pain after approximately [address] angiogram he has a large infrarenal AAA measuring 5-1/2 cm. Operative narrative: after written and informed consent was obtained the patient all risks benefits and complications were described. The patient was brought to the operative suite and laid in a supine position. The area of the abdomen and groins were prepped and draped in usual sterile fashion after appropriate anesthetic was performed per the anesthesiologist. A timeout was performed in normal fashion antibiotics were administered prior to incisions. Oblique in cisions were then created with a 10 blade scalpel at bilateral groins and dissection was carried down with electrocautery to the common femoral arteries bilaterally. The common femoral artery, profundus and superficial femoral artery was then meticulously dissected free circumferentially and controlled with vessel loops. Once control was obtained the inguinal ligament was located and superior to the inguinal ligament a tunnel was created connecting both groins. Umbilical tape was then placed at that time. Patient was then administered heparin and followed with ACTs for appropriate heparinization. Utilizing a multipurpose needle the right common femoral artery was accessed and a 5-Cymraes sheath was placed. Sheath was assessed for patency injured flushed easily. 035 Glidewire was then placed into the aorta followed by pigtail catheter and aortogram was then obtained with markings of the bilateral renal arteries performed. Stiff Lunderquist wire was then placed through the pigtail catheter and the pigtail catheter was removed. A Medtronic unibody graft was then placed up the right femoral artery after 5-Cymraes sheath was removed. Graft was then deployed at the infrarenal aspect of the aorta under direct visualization of fluoroscopy. Once completed the deployment sheath was removed and the right femoral artery was back filled with a 16-Cymraes sheath. Retrograde angiogram was then obtained locating the internal iliac artery and a ipsilateral graft with 22 mm flared limb was then placed in normal fashion within the previous aorta unibody graft. Once completed the deployment sheath was then removed followed by a Coda balloon and balloon angioplasty of the overlaps was then performed. Final angiogram was then obtained demonstrating good seal without any evidence of endoleak. Attention was then placed to femoral to femoral artery bypass. Utilizing the existing umbilical tape an 8 mm [place] propatent graft was tunneled between the 2 groin incisions. The graft was then spatulated and arteriotomy was created with 11 blade scalpel on the right common femoral artery after control was obtained of the proximal and distal femoral artery. Arteriotomy was extended with Pott Han scissors. There was no evidence of thrombus or significant calcification and atherosclerotic disease. Graft was then anastomosed to the artery with 6-0 Prolene suture in a running fashion. Prior to last sutures being placed the superficial femoral and profundus femoris artery was released revealing good brisk backbleeding. Final sutures were secured the SFA was reclamped and proximal control was released flushing any free debris into the deep system. There was a good pulse within the graft. Attention was then placed to the left femoral anastomosis. Arteriotomy was created with 11 blade scalpel at the left common femoral artery and extended with Pott Han scissors. Backbleeding was assessed of the profundus and superficial femoral artery which was brisk. The graft was then spatulated and anastomosis was created with 6-0 Prolene suture in a running fashion. Prior to last sutures being placed the graft was de-aired. Deep control for the profundus was then released followed by a proximal control of the graft revealing good pulsatile blood flow into the common femoral artery. SFA was then released. Hemostasis was assured with Gelfoam and thrombin. The vessels were then assessed with Doppler demonstrating good multiphasic signal in the right SFA, profundus as well as the left SFA and profundus femoris artery. Doppler signal was then assessed in the DP and PT which was poor in the right and diminished in the left. At that time it was determined to perform selective angiograms. Utilizing an 18-gauge Angiocath the right side aspect of the graft was accessed. Selective right lower extremity angiogram was obtained demonstrating good brisk flow to the profundus, superficial femoral artery down to the popliteal with visualization of the TPT which demonstrated takeoff of the posterior tibial and anterior tibial artery but marked occlusion afterwards with reconstitution from the peroneal vessel to the posterior tibial artery at the ankle. Angiogram was then obtained of the left lower extremity demonstrating good flow through the profundus femoris, superficial femoral artery, popliteal with TPT takeoff and left posterior tibial one-vessel flow to the foot. Angiocath was then removed and suture was placed for closure. The area was copiously irrigated with antibiotic solution. Incisions were then closed in a multilayer fashion. Skin was cleansed and dressings with Prevena incisional VAC was placed. Patient had multiphasic signal of the left PT and monophasic signal of the right PT at the conclusion of the procedure. Patient was then sent to PACU for recovery.
[2019-08-17] MEDS: TAMSULOSIN 0.4 MG CAP.ER.24H PO SCH (21:03)
[2019-08-17] MEDS: DOCUSATE 100 MG CAP PO SCH (21:05)
[2019-08-17 22:48] LABS: Basophils % (A) 0 %; Eosinophils % (A) 0 %; HCT 32.1 % (39.0-53.0); HGB 10.8 gm/dL (13.0-17.5); Lymphocytes # (A) 0.6 k/uL (1.0-4.8); Lymphocytes % (A) 6 %; MCH 32.9 pg (25.0-35.0); MCHC 33.6 g/dL (31.0-37.0); MCV 97.8 fL (80.0-100.0); Mean Platelet Volume 8.1; Monocytes # (A) 0.6 k/uL (0-1.0); Monocytes % (A) 6 %; Neutrophils # (A) 9.1 k/uL (1.3-7.7); Neutrophils % (A) 87 %; Platelet Count 228 k/uL (150-450); RBC 3.29 m/uL (4.30-5.90); RDW 12.8 % (11.5-15.5); WBC 10.5 k/uL (3.8-10.6)
[2019-08-17 23:11] LABS: Calcium 8.3 mg/dL (8.4-10.2); Potassium 4.3 mmol/L (3.5-5.1)
[2019-08-18] MEDS: SODIUM CHLORIDE 0.9% 1,000 ML IV SCH ×2 (03:34→13:29)
[2019-08-18 04:38] LABS: Basophils # (A) 0.1 k/uL (0-0.2); Basophils % (A) 1 %; Eosinophils # (A) 0.1 k/uL (0-0.7); Eosinophils % (A) 1 %; HCT 30.5 % (39.0-53.0); HGB 10.6 gm/dL (13.0-17.5); Lymphocytes # (A) 1.1 k/uL (1.0-4.8); Lymphocytes % (A) 13 %; MCH 33.6 pg (25.0-35.0); MCHC 34.8 g/dL (31.0-37.0); MCV 96.6 fL (80.0-100.0); Mean Platelet Volume 8.4; Monocytes # (A) 0.7 k/uL (0-1.0); Monocytes % (A) 8 %; Neutrophils # (A) 6.8 k/uL (1.3-7.7); Neutrophils % (A) 76 %; Platelet Count 233 k/uL (150-450); RBC 3.16 m/uL (4.30-5.90); RDW 12.8 % (11.5-15.5)
[2019-08-18 05:01] LABS: African American GFR (CKD) >90 (>60 ml/min/1.73 sqM); Anion Gap 6 mmol/L; Blood Urea Nitrogen 17 mg/dL (9-20); Calcium 8.3 mg/dL (8.4-10.2); Carbon Dioxide 23 mmol/L (22-30); Chloride 106 mmol/L (98-107); Glucose 130 mg/dL (74-99); Non-African American GFR(CKD) 81 (>60 ml/min/1.73 sqM); Potassium 4.1 mmol/L (3.5-5.1); Sodium 135 mmol/L (137-145)
[2019-08-18] MEDS ORDERED: GLIMEPIRIDE 2 MG TAB PO SCH (07:30)
[2019-08-18] MEDS ORDERED: PANTOPRAZOLE 40 MG TABLET PO SCH (07:30)
--- NOTE | 2019-08-18 08:01 | P.PN ---
Subjective Progress Note Date: 08/18/19 Patient seen and evaluated sitting up in the recliner. Patient denies any fever or chills, or changes through the night. Patient denies any pain, states only had to use some Ultram for back pain. Patient's Boucher catheter remains intact which was already in place upon admission to the hospital. Vital signs are stable, patient denies any bleeding. Objective - Vital Signs Vital signs: Vital Signs Temp 97.9 F 08/18/19 04:00 Pulse 77 08/18/19 07:00 Resp 14 08/18/19 07:00 BP 165/75 08/18/19 07:00 Pulse Ox 94 L 08/18/19 07:00 Intake & Output 08/17/19 08/18/19 08/18/19 18:59 06:59 18:59 Intake Total 1790 1040 Output Total 1350 1075 Balance 440 -35 Weight 89.4 kg Intake: IV 1790 80 KVO 240 80 Intake, IV Titration 960 Amount Sodium Chloride 0.9% 1, 160 000 ml @ 0 mls/hr IV .[facility] Rx#:[id number] Sodium Chloride 0.9% 1, 800 000 ml @ 80 mls/hr IV . [id number] [facility] Rx#:[id number] Output: Urine 1200 1075 Estimated Blood Loss 150 Other: Voiding Method Indwelling Catheter Indwelling Catheter ABP, PAP, CO, CI - Last Documented Arterial Blood Pressure 146/48 - Exam General appearance: The patient is alert, oriented, in no acute distress. HET: Head is normocephalic and atraumatic. Neck: Supple without lymphadenopathy. Trachea midline. Heart: S1 S2. Regular rate and rhythm. Lungs: No crackles or wheezes are heard. Abdomen: Soft, nontender, nondistended with bowel sounds. No peritoneal signs. Groin: Bilateral groin with ecchymosis, no palpable hematoma. Bilateral groins with intact Prevena incisional Vac in place. Extremities: Normal skin color and turgor, warm to touch bilaterally. No cyanosis, rash, ulceration, clubbing, or edema. Right PT and DP monophasic signal, left PT and DP multiphasic signal. Neurological: No focal deficits. Strength and sensation are grossly intact. - Labs CBC & Chem 7: 08/18/19 04:20 08/18/19 04:20 Labs: Abnormal Lab Results - Last 24 Hours (Table) 08/17/19 08/17/19 08/17/19 Range/Units 12:55 22:15 22:15 RBC 3.29 L (4.30-5.90) m/uL Hgb 10.8 L (13.0-17.5) gm/dL Hct 32.1 L (39.0-53.0) % Neutrophils # 9.1 H (1.3-7.7) k/uL Lymphocytes # 0.6 L (1.0-4.8) k/uL Sodium 135 L (137-145) mmol/L Glucose 176 H (74-99) mg/dL POC Glucose (mg/dL) 167 H (75-99) mg/dL Calcium 8.3 L (8.4-10.2) mg/dL 08/18/19 08/18/19 Range/Units 04:20 04:20 RBC 3.16 L (4.30-5.90) m/uL Hgb 10.6 L (13.0-17.5) gm/dL Hct 30.5 L (39.0-53.0) % Neutrophils # (1.3-7.7) k/uL Lymphocytes # (1.0-4.8) k/uL Sodium 135 L (137-145) mmol/L Glucose 130 H (74-99) mg/dL POC Glucose (mg/dL) (75-99) mg/dL Calcium 8.3 L (8.4-10.2) mg/dL Assessment and Plan Assessment: #1 Postop day 1 status post abdominal aortic aneurysm repair with femoral to femoral artery bypass #2 infrarenal abdominal aortic aneurysm with left common iliac artery occlusion #3 left lower extremity disabling claudication #4 rest pain [place] classification 4 Plan: A-line removed, patient to increase activity. Continue to manage pain. Consult ordered for urology for urinary retention. May consider discharge home later this afternoon. Await further recommendations. The above dictated assessment and findings were discussed with Dr. Ashford. The impression and plan of care have been directed as dictated.
[2019-08-18] MEDS: LACTATED RINGERS 1,000 ML IV SCH (08:11)
[2019-08-18] MEDS: TAMSULOSIN 0.4 MG CAP.ER.24H PO SCH (08:12)
[2019-08-18] MEDS: DOCUSATE 100 MG CAP PO SCH (08:12)
--- NOTE | 2019-08-18 08:47 | XR ---
EXAMINATION TYPE: XR chest 1V portable DATE OF EXAM: 08/18/2019 COMPARISON: NONE HISTORY: Postoperative TECHNIQUE: Single frontal view of the chest is obtained. FINDINGS: There is no focal air space opacity, pleural effusion, or pneumothorax seen. The cardiac silhouette size is within normal limits. The osseous structures are intact. Atherosclerotic change aorta. No overt failure. Superficial chest leads limit the exam. IMPRESSION: No acute process.
[2019-08-18] MEDS ORDERED: LISINOPRIL 5 MG TAB PO SCH (09:00)
[2019-08-18] MEDS ORDERED: LORATADINE 10 MG TAB PO SCH (09:00)
[2019-08-18] MEDS ORDERED: amLODIPine 10 MG TAB PO SCH (09:00)
[2019-08-18] MEDS ORDERED: ASPIRIN 81 MG PO SCH ×2 (09:00)
--- NOTE | 2019-08-18 09:50 | PN ---
PROGRESS NOTE PULMONARY/CRITICAL CARE PROGRESS NOTE: DATE OF SERVICE: 08/18/2019 This is an 84-year-old gentleman who is postop day #1, status post endovascular stenting of an abdominal aortic aneurysm. The patient is doing relatively well. He is on room air. His IV is saline at 80 mL an hour. He has no complaints. He does have sleep apnea syndrome and did require some oxygen at nighttime at 2 L. Again, he is postop day #1. The surgery was done by Dr. Rouse. His primary care physician is Dr. Jimenez. In addition, he has a history of diabetes mellitus, hypertension, hyperlipidemia, acid reflux disease, GERD, DJD, and BPH, status post TURP. He also has a history of penile implant. Currently, he has no major complaints. No pain. No discomfort. No shortness of breath, cough, wheezing, or phlegm production. No fever or chills. No GI complaints or genitourinary complaints at this time. Current vital signs are reviewed. Temperature 97.9, heart rate 80, respiratory rate is 14, blood pressure 134/64 mean 87, saturations are 94% on room air. Appears in no acute distress. HEENT: Examination is grossly unremarkable. Mucous membranes are moist. No oral lesions. NECK: Supple, full range of motion. No adenopathy. Neck veins are flat. CARDIOVASCULAR: Examination reveals a regular rhythm and rate. Heart rate 87. S1, S2 normal. No S3, S4, or murmur. LUNGS: Reveal mostly clear breath sounds. A few scattered mild rhonchi. No wheezes or crackles. Breath sounds equal. ABDOMEN: Soft, bowel sounds are heard. EXTREMITIES: Intact, without cyanosis, clubbing, or edema. SKIN: Without rash. NEUROLOGIC: Examination is nonfocal. Microbiology is negative. CURRENT LABORATORY DATA: Includes a white count 9, hemoglobin 10.6, hematocrit 30.5, platelet count 233,000. Sodium 135, potassium 4.1, chloride is 106, CO2 is 23, anion gap 6. BUN and creatinine were 17 and 0.84. Calcium 8.3. A chest x-ray is done. It shows clear lung jay. Costophrenic angles are clear. Cardiac silhouette is of normal size. There are some calcifications of the aorta. Medications are reviewed. He is on appropriate medications by my eye. ASSESSMENT: 1. Postoperative day #1 status post endovascular stenting of abdominal aortic aneurysm with a total occlusion of the left common iliac artery just above the bifurcation. 2. History of diabetes mellitus. 3. Gastroesophageal reflux disease. 4. Hyperlipidemia. 5. Benign essential hypertension. 6. History of degenerative joint disease. 7. History of benign prostatic hypertrophy. 8. Peripheral vascular occlusive disease. 9. Restless legs syndrome. 10.Status post penile implant. 11.History of chronic constipation. 12.History of neuropathy secondary to diabetes. PLAN: The patient is doing well. He is not receiving any supplemental oxygen. His saline IV is running at 80 mL an hour. He has no major complaints. Labs look stable. Chest x- ray stable. We will continue to follow. Prognosis is thought to be very good. MMODL / IJN: [id number] /
[2019-08-18] MEDS: ALPRAZolam 0.5 MG TAB PO SCH (09:59)
[2019-08-18] MEDS ORDERED: CLOPIDOGREL 75 MG TAB PO SCH (11:45)
[2019-08-18 11:59] LABS: Glucose,Whole Blood 110 mg/dL (75-99)
[2019-08-18 12:15] VITALS: TEMP 98
[2019-08-18 14:31] VITALS: BP 114/88; PULSE 82; RESP 21
--- NOTE | 2019-08-18 19:53 | P.PN ---
Progress Note - Text Progress Note Date: 08/18/19 The patient was seen by Dr. Pavon on 08/10/2019 due to urinary retention. At that time Dr. Pavon placed a 16 Irish coud catheter. The patient had 1700 cc in his bladder. It was Dr. Pavon's recommendation that the catheter be left in place for several weeks prior to removal due to the bladder overdistention. The patient has an appointment to see Dr. Goyal on 08/28/2019 4\for follow-up and should keep this appointment.
--- NOTE | 2019-08-18 20:37 | P.CONS ---
History of Present Illness - History of Present Illness This is a pleasant 84 years old male with past medical history of diabetes m ellitus, GERD, hyperlipidemia, hypertension, osteoarthritis, restless leg syndrome, diabetic neuropathy, aortic aneurysm using a cane or wheelchair. He is a patient of Dr. Jimenez. 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 Today is postoperative day #1. He denies chest pain or dyspnea. No abdominal pain. No issues with his bowel or urine regimens. No fever. Other vitals are stable. The blue disease 9.0K, hemoglobin 10.6. Sodium 135, rest of BMP is unremarkable. Sugars controlled 110-176. Chest x-ray: No acute process. Is currently on Plavix and no muscle and 80 mL per hour. at home he was an MRI of 1-2 mg daily Review of Systems CONSTITUTIONAL: No fever, no malaise, no fatigue. HEENT: No recent visual problems or hearing problems. Denied any sore throat. CARDIOVASCULAR: No orthopnea, PND, no palpitations, no syncope. PULMONARY: No shortness of breath, no cough, no hemoptysis. GASTROINTESTINAL: No diarrhea, no nausea, no vomiting, no abdominal pain. Normoactive bowel sounds. NEUROLOGICAL: No headaches, no weakness, no numbness. HEMATOLOGICAL: Denies any bleeding or petechiae. GENITOURINARY: Denies any burning micturition, frequency, or urgency. MUSCULOSKELETAL/RHEUMATOLOGICAL: Denies any joint pain, swelling, or any muscle pain. ENDOCRINE: Denies any polyuria or polydipsia. Past Medical History Past Medical History: Diabetes Mellitus, GERD/Reflux, Hyperlipidemia, Hypert ension, Osteoarthritis (OA), Prostate Disorder, Vascular Disorder Additional Past Medical History / Comment(s): currently has IDC, restless leg syndrome, sciatica rt side, neuropathy legs & feet, states difficulty walking, unable to stand long, degenerative arthritis, uses cane or wheelchair, constipation. aortic aneurysm. History of Any Multi-Drug Resistant Organisms: None Reported Past Surgical History: Prostate Surgery Additional Past Surgical History / Comment(s): right wrist, penile implant, TURP. monika cataracts Past Anesthesia/Blood Transfusion Reactions: No Reported Reaction Smoking Status: Former smoker - Past Family History Father Family Medical History: Cancer Mother Family Medical History: Dementia Additional Family Medical History / Comment(s): alzheimers Brother(s) Family Medical History: Cancer Son(s) Family Medical History: Cancer Additional Family Medical History / Comment(s): PROSTATE CANCER Medications and Allergies Home Medications Medication Instructions Recorded Confirmed Type Enalapril Maleate [Vasotec] 2.5 mg PO QAM 12/21/16 08/11/19 History Glimepiride [Amaryl] 1 - 2 mg PO [id number] 12/21/16 08/11/19 History Magnesium Oxide [Magnesium] 300 mg PO DAILY 12/21/16 08/11/19 History Multivit-Min/FA/Lycopen/Lutein 1 tab PO DAILY 12/21/16 08/11/19 History [Centrum Silver Tablet] [place]-3/Dha/Epa/Fish Oil [Fish Oil 1 cap PO DAILY 12/21/16 08/11/19 History 500 mg Softgel] Omeprazole 20 mg PO DAILY 12/21/16 08/11/19 History Tamsulosin HCl [Flomax] 0.4 mg PO BID 12/21/16 08/11/19 History amLODIPine [Norvasc] 10 mg PO QAM 12/21/16 08/11/19 History Aspirin [Children's Aspirin] 81 mg PO DAILY 01/01/17 08/11/19 History ALPRAZolam [Xanax] 0.5 mg PO TID 01/09/17 08/11/19 History rOPINIRole HCL [Requip] 0.5 mg PO HS PRN 01/09/17 08/11/19 History traMADol HCL [Ultram] 50 - 100 mg PO BID PRN 01/09/17 08/11/19 History Ibuprofen [Motrin] 800 mg PO TID PRN 11/18/17 08/11/19 History Loratadine 10 mg PO DAILY 11/18/17 08/11/19 History Gabapentin [Neurontin] 100 mg PO TID PRN 08/04/19 08/11/19 History Atorvastatin [Lipitor] 20 mg PO DAILY 08/09/19 08/11/19 History Docusate [Colace] 100 mg PO BID 08/09/19 08/11/19 History Clopidogrel [Plavix] 75 mg PO DAILY 30 Days #30 tab 01/23/20 Rx Allergies Allergy/AdvReac Type Severity Reaction Status Date / Time pregabalin [[facility] Allergy Unknown Verified 08/17/19 06:39 Physical Exam Vitals: Vital Signs Temp Pulse Pulse Resp BP BP Pulse Ox 08/18/19 12:00 98 F 104 H 18 115/82 94 L 08/18/19 11:00 90 17 138/59 96 08/18/19 10:00 92 15 140/70 98 08/18/19 09:00 90 16 144/57 94 L 08/18/19 08:00 97.9 F 87 10 L 134/64 94 L 08/18/19 07:00 77 14 165/75 94 L 08/18/19 06:00 82 12 147/81 95 08/18/19 05:00 73 9 L 124/92 96 08/18/19 04:30 79 19 124/92 96 08/18/19 04:00 97.9 F 74 14 135/72 97 08/18/19 03:30 92 10 L 135/72 96 08/18/19 03:00 80 12 152/66 90 L 08/18/19 02:30 75 13 154/62 96 08/18/19 02:00 76 10 L 146/73 97 08/18/19 01:30 11 L 128/65 95 08/18/19 01:00 75 9 L 140/65 97 08/18/19 00:30 77 12 137/70 94 L 08/18/19 00:01 146/60 08/18/19 00:00 80 146/60 96 08/17/19 23:45 75 134/70 97 08/17/19 23:33 75 16 159/43 08/17/19 23:30 75 129/75 94 L 08/17/19 23:15 80 139/64 94 L 08/17/19 23:00 72 114/58 92 L 08/17/19 22:45 86 139/64 95 08/17/19 22:30 75 132/63 95 08/17/19 22:15 72 133/63 08/17/19 22:00 72 146/70 08/17/19 21:45 72 139/75 08/17/19 21:30 80 08/17/19 21:15 82 164/60 08/17/19 21:00 86 141/63 08/17/19 20:45 129/105 96 08/17/19 20:30 146/66 96 08/17/19 20:15 89 135/71 96 08/17/19 20:01 97.6 F 96 08/17/19 19:46 129/76 98 08/17/19 19:30 134/72 95 08/17/19 19:15 89 131/68 08/17/19 19:00 93 16 121/63 97 08/17/19 18:45 114/75 08/17/19 18:30 122/74 08/17/19 18:15 196/154 08/17/19 18:00 59 L 17 122/96 97 08/17/19 17:00 128/55 08/17/19 16:50 128/55 08/17/19 16:40 117/75 08/17/19 16:30 128/59 08/17/19 16:20 128/59 08/17/19 16:10 123/55 08/17/19 16:00 63 50 L 12 116/62 97 08/17/19 15:50 116/62 08/17/19 15:40 117/58 08/17/19 15:33 58 L 17 143/43 08/17/19 15:30 120/53 08/17/19 15:20 120/53 08/17/19 15:10 115/57 08/17/19 15:00 61 14 99/54 96 08/17/19 14:50 99/54 08/17/19 14:40 123/58 08/17/19 14:33 57 L 14 118/40 08/17/19 14:30 107/57 08/17/19 14:20 107/57 08/17/19 14:10 68 12 122/50 97 08/17/19 14:00 66 12 122/57 99 08/17/19 13:50 67 14 122/57 96 08/17/19 13:40 63 12 119/54 96 08/17/19 13:33 67 14 143/43 08/17/19 13:30 68 12 125/64 97 08/17/19 13:20 110/62 08/17/19 13:10 110/62 08/17/19 13:03 97.4 F L 64 12 150/47 08/17/19 13:02 110/62 08/17/19 12:34 51 L 16 112/56 98 Intake and Output 08/17/19 08/18/19 08/18/19 22:59 06:59 14:59 Intake Total 520 720 440 Output Total 550 775 435 Balance -30 -55 5 Intake: IV 280 320 KVO 280 320 Intake, IV Titration 240 720 Amount Sodium Chloride 0.9% 1, 80 80 000 ml @ 0 mls/hr IV .[facility] Rx#:[id number] Sodium Chloride 0.9% 1, 160 640 000 ml @ 80 mls/hr IV . [id number] Rx#:[id number] Oral 120 Output: Urine 550 775 435 Other: Voiding Method Indwelling Catheter Indwelling Catheter Indwelling Catheter Weight 89.4 kg ABP, PAP, CO, CI - Last 8 Hours Arterial Blood Pressure 157/37 Arterial Blood Pressure 146/48 Arterial Blood Pressure 179/48 Arterial Blood Pressure 173/54 GENERAL: The patient is alert and oriented x3, not in any acute distress. Well developed, well nourished. HEENT: Pupils are round and equally reacting to light. EOMI. No scleral icterus. No conjunctival pallor. Normocephalic, atraumatic. No pharyngeal erythema. No thyromegaly. CARDIOVASCULAR: S1 and S2 present. No murmurs, rubs, or gallops. PULMONARY: Chest is clear to auscultation, no wheezing or crackles. ABDOMEN: Soft, nontender, nondistended, normoactive bowel sounds. No palpable organomegaly. MUSCULOSKELETAL: No joint swelling or deformity. EXTREMITIES: No cyanosis, clubbing, or pedal edema. NEUROLOGICAL: Gross neurological examination did not reveal any focal deficits. SKIN: No rashes. No petechiae Results CBC & Chem 7: 08/18/19 04:20 08/18/19 04:20 Labs: Abnormal Lab Results - Last 24 Hours (Table) 08/17/19 08/17/19 08/17/19 Range/Units 12:55 22:15 22:15 RBC 3.29 L (4.30-5.90) m/uL Hgb 10.8 L (13.0-17.5) gm/dL Hct 32.1 L (39.0-53.0) % Neutrophils # 9.1 H (1.3-7.7) k/uL Lymphocytes # 0.6 L (1.0-4.8) k/uL Sodium 135 L (137-145) mmol/L Glucose 176 H (74-99) mg/dL POC Glucose (mg/dL) 167 H (75-99) mg/dL Calcium 8.3 L (8.4-10.2) mg/dL 08/18/19 08/18/19 08/18/19 Range/Units 04:20 04:20 11:47 RBC 3.16 L (4.30-5.90) m/uL Hgb 10.6 L (13.0-17.5) gm/dL Hct 30.5 L (39.0-53.0) % Neutrophils # (1.3-7.7) k/uL Lymphocytes # (1.0-4.8) k/uL Sodium 135 L (137-145) mmol/L Glucose 130 H (74-99) mg/dL POC Glucose (mg/dL) 110 H (75-99) mg/dL Calcium 8.3 L (8.4-10.2) mg/dL Assessment and Plan Assessment: 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 Pain management and DVT prophylaxis as per the surgery primary team.Sugar is controlled, patient can resume his femoral with eating at 1 mg daily Labs and medication were reviewed.. Continue same treatment. Continue with symptomatic treatment. Resume home medication. Monitor lytes and vitals. DVT and GI prophylaxis. Further recommendations of the clinical course of the patient
== END 2019-08-18 15:37 | disposition home or self-care (01) | DRG 269 ==
LOC: 2ORMAIN 05:54 → 2SICU 12:30
PROVIDERS: ADMIT Surgery; ATTEND Surgery
PROC: 04V03DZ Restriction of Abdominal Aorta with Intraluminal Device, Percutaneous Approach (ICD-10-PCS; principal; 2019-08-17 07:30)
PROC: 041K0JJ Bypass Right Femoral Artery to Left Femoral Artery with Synthetic Substitute, Open Approach (ICD-10-PCS; principal; 2019-08-17 07:30)
DX: I71.4 Abdominal aortic aneurysm, without rupture (principal); I74.5 Embolism and thrombosis of iliac artery; K21.9 Gastro-esophageal reflux disease without esophagitis; E78.5 Hyperlipidemia, unspecified; E11.51 Type 2 diabetes mellitus with diabetic peripheral angiopathy without gangrene; M19.90 Unspecified osteoarthritis, unspecified site; G25.81 Restless legs syndrome; E11.40 Type 2 diabetes mellitus with diabetic neuropathy, unspecified; I10 Essential (primary) hypertension; G47.30 Sleep apnea, unspecified; M54.31 Sciatica, right side; K59.09 Other constipation; H91.90 Unspecified hearing loss, unspecified ear; Z79.82 Long term (current) use of aspirin; Z79.84 Long term (current) use of oral hypoglycemic drugs; Z79.899 Other long term (current) drug therapy; Z87.891 Personal history of nicotine dependence; Z90.79 Acquired absence of other genital organ(s); Z96.0 Presence of urogenital implants; Z87.438 Personal history of other diseases of male genital organs; Z98.890 Other specified postprocedural states; Z98.42 Cataract extraction status, left eye; Z98.41 Cataract extraction status, right eye; Z88.8 Allergy status to other drugs, medicaments and biological substances; Z82.0 Family history of epilepsy and other diseases of the nervous system; Z80.42 Family history of malignant neoplasm of prostate
CPT/HCPCS: 71045; 80048; 85025; 86850; 86900; 86901; 88305

== ENCOUNTER → 2020-12-07 | Outpatient (CLI) | payer MEDICARE | END | disposition home or self-care (01) | LOC: RADMRIMAIN 14:17 | PROVIDERS: ATTEND Family Medicine | DX: Z53.9 Procedure and treatment not carried out, unspecified reason (principal) ==

== ENCOUNTER → 2021-01-01 | Outpatient (CLI) | payer MEDICARE ==
--- NOTE | 2021-01-01 11:06 | XR ---
EXAMINATION TYPE: XR KUB DATE OF EXAM: 01/01/2021 COMPARISON: NONE HISTORY: Pre-MRI TECHNIQUE: One view abdominal series FINDINGS: The osseous structures are intact. The bowel gas pattern is nonspecific. Metallic vascular stents ar e noted. There is severe degenerative change of the spine. There is a radiopaque density compatible t he penile implant which appears to contain multiple metallic densities. Hypertrophic changes of the h ips. Appears to be suggestion of a hoh aortic aneurysm. Nonspecific calcifications left upper quad rant. IMPRESSION: 1. There are metallic aortic and iliac stents as well as metallic densities associated with a penile implant correlation with there composition is recommended prior to MRI.
== END | disposition home or self-care (01) ==
LOC: RADXRMAIN 10:00
PROVIDERS: ATTEND Family Medicine
DX: T83.490A Other mechanical complication of implanted penile prosthesis, initial encounter (principal)
CPT/HCPCS: 74018

== ENCOUNTER → 2024-04-20 | Outpatient (CLI) | payer OTHER ==
[~2024-04-20] MED LIST changes: -DEXAMETHASONE SOD PHOSPHATE 10 MG/ML 1 ML VIAL IV ONE; -HYDROmorphone 0.5 MG/0.5 ML SYRINGE IVP PRN; -LIDOCAINE 1% 20 ML VIAL (10MG/ML) FOR IV START INTRADERMA PRN; -MIDAZOLAM 2 MG/2 ML VIAL IV PRN; -ONDANSETRON 4 MG/2 ML VIAL IVP ONE; +REGADENOSON 0.4 MG/5 ML SYRINGE IV PRN
--- NOTE | 2024-04-20 11:57 | CA ---
Transthoracic Echo Report Name: Luis Carlos Hendricks Age: 88 Gender: M : 1935 Exam Date: 04/20/2024 08:44 Exam Location: [place] [facility] Ht (in): 76 Wt (lb): 180 Ordering Physician: Marcie Lim GA Jeannette Attending/Referring Phys: [id number], Marcie Lim Tenderizer Tender Griselda Lock, OTF Procedure CPT: Indications: I10 HTN R07.9 CHEST PAIN, UNSPECIFIED Cardiac Hx: Technical Quality: Fair Contrast 1: Total Dose (mL): Contrast 2: Total Dose (mL): MEASUREMENTS (Male / Female) Normal Values 2D ECHO LV Diastolic Diameter PLAX 3.7 cm 4.2 - 5.9 / 3.9 - 5.3 cm LV Systolic Diameter PLAX 1.9 cm IVS Diastolic Thickness 1.5 cm 0.6 - 1.0 / 0.6 - 0.9 cm LVPW Diastolic Thickness 1.6 cm 0.6 - 1.0 / 0.6 - 0.9 cm LV Relative Wall Thickness 0.8 RV Internal Dim ED PLAX 2.7 cm LVOT Diameter 1.9 cm LA Systolic Diameter LX 4.4 cm 3.0 - 4.0 / 2.7 - 3.8 cm LV Diastolic Volume MOD BP 66.5 cm??? 67 - 155 / 56 - 104 cm??? LV Systolic Volume MOD BP 21.5 cm??? 22 - 58 / 19 - 49 cm??? LV Ejection Fraction MOD BP 67.6 % >= 55 % LV Cardiac Index MOD BP 1659.6 cm???/min???m??? LV Diastolic Volume MOD 4C 61.2 cm??? LV Systolic Volume MOD 4C 20.8 cm??? LV Ejection Fraction MOD 4C 65.9 % LV Cardiac Index MOD 4C 1489.2 cm???/min???m??? LV Diastolic Length 4C 7.9 cm LV Systolic Length 4C 6.3 cm LV Diastolic Volume MOD 2C 66.5 cm??? LV Systolic Volume MOD 2C 22.1 cm??? LV Ejection Fraction MOD 2C 66.7 % LV Cardiac Index MOD 2C 1638.2 cm???/min???m??? LV Diastolic Length 2C 7.3 cm LV Systolic Length 2C 6.3 cm LA Volume 82.7 cm??? 18 - 58 / 22 - 52 cm??? LA Volume Index 39.7 cm???/m??? 16 - 28 cm???/m??? M-MODE Aortic Root Diameter MM 3.2 cm LA Systolic Diameter MM 4.0 cm LA Ao Ratio MM 1.3 AV Cusp Separation MM 1.4 cm DOPPLER AV Peak Velocity 237.8 cm/s AV Peak Gradient 22.6 mmHg AV Mean Velocity 159.3 cm/s AV Mean Gradient 12.0 mmHg AV Velocity Time Integral 50.1 cm LVOT Peak Velocity 149.9 cm/s LVOT Peak Gradient 9.0 mmHg LVOT Velocity Time Integral 36.1 cm LVOT Stroke Volume 101.1 cm??? LVOT Stroke Volume Index 47.7 ml/m??? LVOT Cardiac Index 3733.9 cm???/min???m??? AV Area Cont Eq vti 2.0 cm??? AV Area Cont Eq pk 1.8 cm??? MV Peak Velocity 185.9 cm/s MV Peak Gradient 13.8 mmHg MV Mean Velocity 105.7 cm/s MV Mean Gradient 5.2 mmHg MV Velocity Time Integral 43.4 cm MV Area PHT 2.1 cm??? Mitral E Point Velocity 100.9 cm/s Mitral A Point Velocity 151.6 cm/s Mitral E to A Ratio 0.7 MV Deceleration Time 367.5 ms TR Peak Velocity 238.6 cm/s TR Peak Gradient 22.8 mmHg FINDINGS Left Ventricle Left ventricular ejection fraction is estimated at 60-65 %. Moderately increased septal wall thickness. Left ventricular cavity size normal. Normal left ventricular systolic function with no obvious regional wall motion abnormalities. Right Ventricle Normal right ventricular size and function. Right ventricular systolic pressure within normal limits. Right Atrium Normal right atrial size. Left Atrium Mildly increased left atrial diameter. Moderately increased left atrial volume. Mildly increased left atrial area. Mitral Valve Mitral valve thickened. Moderate mitral annular calcification. [id number]-glfhujuw mitral stenosis. Mean PG 5.2mmHg. Mild mitral regurgitation. Aortic Valve Diffuse thickening of the aortic valve cusps with reduced excursion. Mild aortic stenosis with a peak gradient of 22 mmHg and a mean gradient of 12 mmHg. Tricuspid Valve Structurally normal tricuspid valve. Trace tricuspid regurgitation. No tricuspid stenosis. Pulmonic Valve Structurally normal pulmonic valve. Trace pulmonic regurgitation. No pulmonic stenosis. Pericardium No pericardial or pleural effusion. Aorta Normal size aortic root and proximal ascending aorta. CONCLUSIONS Normal LV systolic function Aortic sclerosis with mild stenosis Thickened mitral valve leaflets with mild to moderate mitral stenosis and mild regurgitation No evidence of pericardial effusion Previewed by: Dr. Emmanuel Cabrera MD (Electronically Signed) Final Date: 20 April 2024 11:56
--- NOTE | 2024-04-20 13:25 | CA ---
Lexiscan Nuclear Stress Test Report Name: Luis Carlos Hendricks Exam Date: 04/20/2024 09:52 Exam Location: [place] Stress Ht (in): 76 Wt (lb): 180 BSA: 2.12 Ordering Phys: MARK Johnston [facility] Referring Phys: SC Technologist: Adam Troy Age: 88 Gender: M : 1935 Procedure CPT: Indications: I10 HTN R07.9 CHEST PAIN, UNSPECIFIED ICD-10 Codes: Patient History: CHEST PAIN, HTN, DIABETES, PRIOR CVA, HYPERCHOLESTEROLEMIA, FORMER SMOKER Medications: NORVASC, LIPITOR Meds past 24 hrs: Pretest Chest Pain: STRESS TEST Lexiscan Protocol Exercise Duration (min:sec): 02:[address] Depressions (mm): Angina Score: Grewal Score: Resting HR (bpm): 82 Peak HR (bpm): 104 Resting BP (mmHg): 146 / 74 Peak BP (mmHg): 185 / 60 MPHR: 132 Target HR: 112 % MPHR: 79 METS: 1.0 Total Dose: Peak Dose: Atropine: Double Product: 33055 BP Response: Stress Termination: INFUSION COMPLETE Stress Symptoms: CHEST PAIN/JAW PAIN/STOMACH ACHE Stress Summary: ECG ANALYSIS Resting ECG: Stress ECG: CONCLUSIONS Nondiagnostic electrocardiogram stress test Dr. Emmanuel Cabrera MD (Electronically Signed) Final Date: 20 April 2024 13:24
--- NOTE | 2024-04-20 14:33 | NM ---
EXAMINATION TYPE: NM stress lexiscan cardiolite DATE OF EXAM: 04/20/2024 COMPARISON: NONE CLINICAL INDICATION: Male, 88 years old with history of I10 HTN R07.9 CHEST PAIN, UNSPECIFIED; TECHNIQUE: After the intravenous administration of 10.5 mCi Tc 99m Sestamibi - Cardiolite resting SP ECT images acquired 45 minutes post injection. The patient received 0.4mg Lexiscan, 26.2 mCi Tc 99m Sestamibi - Stress images obtained [address] injection FINDINGS: Review of stress and rest SPECT images demonstrates no distinct perfusion abnormality. Gated analysi s shows normal wall motion with an estimated left ventricular ejection fraction of 56 %. IMPRESSION: No scintigraphic evidence for reversible ischemia. [facility], , 04/20/2024 2:31 PM
== END | disposition home or self-care (01) ==
LOC: RADNMMAIN 07:33
PROVIDERS: ATTEND Social Worker Clinical
DX: I35.0 Nonrheumatic aortic (valve) stenosis (principal); I34.2 Nonrheumatic mitral (valve) stenosis; I10 Essential (primary) hypertension; I70.0 Atherosclerosis of aorta; E11.9 Type 2 diabetes mellitus without complications; E78.00 Pure hypercholesterolemia, unspecified; Z86.73 Personal history of transient ischemic attack (TIA), and cerebral infarction without residual deficits; Z87.891 Personal history of nicotine dependence
CPT/HCPCS: 93017; 93306; 78452; A9500; J2785

== ENCOUNTER 2024-06-26 19:15 | Inpatient (IN) | payer MEDICARE, OTHER ==
--- NOTE | 2024-06-26 19:20 | ED ---
Abdominal Pain HPI - General Stated Complaint: abd pain Time Seen by Provider: 06/26/24 19:19 Source: RN notes reviewed, old records reviewed Mode of arrival: EMS Limitations: no limitations - History of Present Illness Initial Comments: This is a 89-year-old male to the ER for evaluation of abdominal pain left lower quadrant abdominal pain with difficulty of bowel movement since last 3 days. States he has chronic issues with bowel pattern irregularities and is stopped taking his bowel regimen secondary to diarrhea and now is constipated MD Complaint: abdominal pain -: days(s) (3) Location: LLQ Radiation: LLQ Migration to: LLQ Severity: moderate Severity scale (1-10): 6 Quality: aching Consistency: constant Improves With: nothing Associated Symptoms: nausea - Related Data Home Medications Medication Instructions Recorded Confirmed Enalapril Maleate [Vasotec] 2.5 mg PO QAM 12/21/16 08/11/19 Glimepiride [Amaryl] 1 - 2 mg PO [id number] 12/21/16 08/11/19 Magnesium Oxide [Magnesium] 300 mg PO DAILY 12/21/16 08/11/19 Multivit-Min/FA/Lycopen/Lutein 1 tab PO DAILY 12/21/16 08/11/19 [Centrum Silver Tablet] [place]-3/Dha/Epa/Fish Oil [Fish Oil 1 cap PO DAILY 12/21/16 08/11/19 500 mg Softgel] Omeprazole 20 mg PO DAILY 12/21/16 08/11/19 Tamsulosin HCl [Flomax] 0.4 mg PO BID 12/21/16 08/11/19 amLODIPine [Norvasc] 10 mg PO QAM 12/21/16 08/11/19 Aspirin [Children's Aspirin] 81 mg PO DAILY 01/01/17 08/11/19 ALPRAZolam [Xanax] 0.5 mg PO TID 01/09/17 08/11/19 rOPINIRole HCL [Requip] 0.5 mg PO HS PRN 01/09/17 08/11/19 traMADol HCL [Ultram] 50 - 100 mg PO BID PRN 01/09/17 08/11/19 Ibuprofen [Motrin] 800 mg PO TID PRN 11/18/17 08/11/19 Loratadine 10 mg PO DAILY 11/18/17 08/11/19 Gabapentin [Neurontin] 100 mg PO TID PRN 08/04/19 08/11/19 Atorvastatin [Lipitor] 20 mg PO DAILY 08/09/19 08/11/19 Docusate [Colace] 100 mg PO BID 08/09/19 08/11/19 Previous Rx's Medication Instructions Recorded Clopidogrel [Plavix] 75 mg PO DAILY 30 Days #30 tab 08/18/19 Allergies Allergy/AdvReac Type Severity Reaction Status Date / Time pregabalin [From Lyrica] Allergy Unknown Verified 06/26/24 19:23 Review of Systems ROS Statement: Those systems with pertinent positive or pertinent negative responses have been documented in the HPI. ROS Other: All systems not noted in ROS Statement are negative. Past Medical History Past Medical History: Diabetes Mellitus, GERD/Reflux, Hyperlipidemia, Hypertension, Osteoarthritis (OA), Vascular Disorder Additional Past Medical History / Comment(s): restless leg syndrome, sciatica rt side, neuropathy legs & feet, states difficulty walking, unable to stand long, degenerative arthritis, uses cane or wheelchair, constipation. aortic aneurysm. History of Any Multi-Drug Resistant Organisms: None Reported Past Surgical History: Prostate Surgery Additional Past Surgical History / Comment(s): right wrist, penile implant, TURP. monika cataracts Past Anesthesia/Blood Transfusion Reactions: No Reported Reaction Past Psychological History: No Psychological Hx Reported Past Alcohol Use History: None Reported Additional Past Alcohol Use History / Comment(s): QUIT SMOKING 1979, smoked less than 1ppd Past Drug Use History: None Reported - Past Family History Father Family Medical History: Cancer Mother Family Medical History: Dementia Additional Family Medical History / Comment(s): alzheimers Brother(s) Family Medical History: Cancer Son(s) Family Medical History: Cancer Additional Family Medical History / Comment(s): PROSTATE CANCER General Exam General appearance: alert, in no apparent distress Head exam: Present: atraumatic, normocephalic, normal inspection Eye exam: Present: normal appearance, PERRL, EOMI. Absent: scleral icterus, conjunctival injection, periorbital swelling ENT exam: Present: normal exam, mucous membranes moist Neck exam: Present: normal inspection. Absent: tenderness, meningismus, lymphadenopathy Respiratory exam: Present: normal lung sounds bilaterally. Absent: respiratory distress, wheezes, rales, rhonchi, stridor Cardiovascular Exam: Present: regular rate, normal rhythm, normal heart sounds. Absent: systolic murmur, diastolic murmur, rubs, gallop, clicks GI/Abdominal exam: Present: soft, normal bowel sounds. Absent: distended, tende rness, guarding, rebound, rigid Extremities exam: Present: normal inspection, full ROM, normal capillary refill. Absent: tenderness, pedal edema, joint swelling, calf tenderness Back exam: Present: normal inspection Neurological exam: Present: alert, oriented X3, CN II-XII intact Psychiatric exam: Present: normal affect, normal mood Skin exam: Present: warm, dry, intact, normal color. Absent: rash Course Vital Signs 06/26/24 06/26/24 06/26/24 19:20 19:55 21:23 Temperature 98.1 F Pulse Rate 95 89 94 Respiratory 18 18 16 Rate Blood Pressure 149/69 153/63 143/63 O2 Sat by Pulse 98 98 100 Oximetry 06/26/24 23:00 Temperature Pulse Rate 95 Respiratory 18 Rate Blood Pressure 152/66 O2 Sat by Pulse 98 Oximetry - Reevaluation(s) Reevaluation #1: 06/26/24 19:20 Medical records reviewed Reevaluation #4: Was pt. sent in by a medical professional or institution (, PA, GOLF COURSE EQUIPMENT OPERATOR, urgent care, hospital, or assisted...) When possible be specific @ -no Did you speak to anyone other than the patient for history (EMS, parent, family, police, friend...)? What history was obtained from this source @ -no Did you review nursing and triage notes (agree or disagree)? Why? @ -agree Are old charts reviewed (outside hosp., previous admission, EMS record, old EKG, old radiological studies, urgent care reports/EKG's, assisted records)? Report findings @ -yes Differential Diagnosis (chest pain, altered mental status, abdominal pain women, abdominal pain men, vaginal bleeding, weakness, fever, dyspnea, syncope, headache, dizziness, GI bleed, back pain, seizure, CVA, palpatations, mental health, musculoskeletal)? @ -prior EKG interpreted by me (3pts min.). @ -yes X-rays interpreted by me (1pt min.). @ -yes negative for acute disease CT interpreted by me (1pt min.). @ -no U/S interpreted by me (1pt. min.). @ -no What testing was considered but not performed or refused? (CT, X-rays, U/S, labs)? Why? @ -none What meds were considered but not given or refused? Why? @ -none Did you discuss the management of the patient with other professionals (professionals i.e. Dr., PA, GOLF COURSE EQUIPMENT OPERATOR, lab, RT, psych nurse, older adult social work specialist, library cataloging technician, teacher, credit or loans officer, insurance case manager)? Give summary @ -no Was smoking cessation discussed for >3mins.? @ -no Was critical care preformed (if so, how long)? @ -no Were there social determinants of health that impacted care today? How? (Homelessness, low income, unemployed, alcoholism, drug addiction, transportation, low edu. Level, literacy, decrease access to med. care, halfway, rehab)? @ -none Was there de-escalation of care discussed even if they declined (Discuss DNR or withdrawal of care, Hospice)? DNR status @ -no What co-morbidities impacted this encounter? (DM, HTN, Smoking, COPD, CAD, Cancer, CVA, ARF, Chemo, Hep., AIDS, mental health diagnosis, sleep apnea, morbid obesity)? @ -none Was patient admitted / discharged? Hospital course, mention meds given and route, prescriptions, significant lab abnormalities, going to OR and other pertinent info. @ - Undiagnosed new problem with uncertain prognosis? @ -no Drug Therapy requiring intensive monitoring for toxicity (Heparin, Nitro, Insulin, Cardizem)? @ -no Were any procedures done? @ -no Diagnosis/symptom? @ - Acute, or Chronic, or Acute on Chronic? @ -Acute Uncomplicated (without systemic symptoms) or Complicated (systemic symptoms)? @ -Complicated Side effects of treatment? @ -no Exacerbation, Progression, or Severe Exacerbation? @ -exacerbation Poses a threat to life or bodily function? How? (Chest pain, [place], [place], pneumonia, PE, COPD, DKA, ARF, appy, cholecystitis, CVA, Diverticulitis, Homicidal, Suicidal, threat to staff... and all critical care pts) @ -yes Reevaluation #5: Differential Abdominal Pain Men: Appendicitis, cholecystitis, diverticulosis, ischemic bowel, pancreatitis, hepatitis, UTI, gastroenteritis, AAA, incarcerated hernia, bowel obstruction, constipation, inflammatory bowel, hepatitis, peptic ulcer disease, splenic infarction, perforated viscus, testicular torsion, this is not meant to be an all-inclusive list Medical Decision Making - Medical Decision Making 89 male will be admitted for acute colitis inflammatory colitis of left lower quadrant, patient has left lower quadrant abdominal pain and will admit for symptom management - Lab Data Result diagrams: 06/26/24 19:30 06/26/24 19:30 Lab Results 06/26/24 06/26/24 06/26/24 Range/Units 19:30 19:30 19:30 WBC 12.3 H (3.8-10.6) k/uL RBC 3.46 L (4.30-5.90) m/uL Hgb 11.7 L (13.0-17.5) gm/dL Hct 34.9 L (39.0-53.0) % MCV 101.0 H (80.0-100.0) fL MCH 33.9 (25.0-35.0) pg MCHC 33.6 (31.0-37.0) g/dL RDW 12.7 (11.5-15.5) % Plt Count 234 (150-450) k/uL MPV 8.0 Neutrophils % 88 % Lymphocytes % 6 % Monocytes % 5 % Eosinophils % 1 % Basophils % 0 % Neutrophils # 10.9 H (1.3-7.7) k/uL Lymphocytes # 0.7 L (1.0-4.8) k/uL Monocytes # 0.6 (0-1.0) k/uL Eosinophils # 0.1 (0-0.7) k/uL Basophils # 0.0 (0-0.2) k/uL PT 11.7 (10.0-12.5) sec INR 1.1 (<1.2) APTT 22.3 (22.0-30.0) sec Sodium 135 L (137-145) mmol/L Potassium 4.0 (3.5-5.1) mmol/L Chloride 106 (98-107) mmol/L Carbon Dioxide 20 L (22-30) mmol/L Anion Gap 9 mmol/L BUN 25 H (9-20) mg/dL Creatinine 0.98 (0.66-1.25) mg/dL Est GFR (CKD-EPI)AfAm 79 (>60 ml/min/1.73 sqM) Est GFR (CKD-EPI)NonAf 69 (>60 ml/min/1.73 sqM) Glucose 148 H (74-99) mg/dL Plasma Lactic Acid Job (0.7-2.0) mmol/L Calcium 8.6 (8.4-10.2) mg/dL Total Bilirubin 0.5 (0.2-1.3) mg/dL AST 24 (17-59) U/L ALT 27 (4-49) U/L Alkaline Phosphatase 57 (38-126) U/L Total Protein 6.0 L (6.3-8.2) g/dL Albumin 3.7 (3.5-5.0) g/dL Amylase 41 (30-110) U/L Lipase 35 (23-300) U/L 06/26/24 Range/Units 19:30 WBC (3.8-10.6) k/uL RBC (4.30-5.90) m/uL Hgb (13.0-17.5) gm/dL Hct (39.0-53.0) % MCV (80.0-100.0) fL MCH (25.0-35.0) pg MCHC (31.0-37.0) g/dL RDW (11.5-15.5) % Plt Count (150-450) k/uL MPV Neutrophils % % Lymphocytes % % Monocytes % % Eosinophils % % Basophils % % Neutrophils # (1.3-7.7) k/uL Lymphocytes # (1.0-4.8) k/uL Monocytes # (0-1.0) k/uL Eosinophils # (0-0.7) k/uL Basophils # (0-0.2) k/uL PT (10.0-12.5) sec INR (<1.2) APTT (22.0-30.0) sec Sodium (137-145) mmol/L Potassium (3.5-5.1) mmol/L Chloride (98-107) mmol/L Carbon Dioxide (22-30) mmol/L Anion Gap mmol/L BUN (9-20) mg/dL Creatinine (0.66-1.25) mg/dL Est GFR (CKD-EPI)AfAm (>60 ml/min/1.73 sqM) Est GFR (CKD-EPI)NonAf (>60 ml/min/1.73 sqM) Glucose (74-99) mg/dL Plasma Lactic Acid Job 2.9 H* (0.7-2.0) mmol/L Calcium (8.4-10.2) mg/dL Total Bilirubin (0.2-1.3) mg/dL AST (17-59) U/L ALT (4-49) U/L Alkaline Phosphatase (38-126) U/L Total Protein (6.3-8.2) g/dL Albumin (3.5-5.0) g/dL Amylase (30-110) U/L Lipase (23-300) U/L - Radiology Data Radiology results: report reviewed (CT abdomen pelvis positive for inflammatory colitis), image reviewed Disposition Clinical Impression: Abdominal colic, Abdominal pain, Colitis, Nausea & vomiting, Constipation Disposition: ADMITTED IP TO THIS [facility] Condition: Fair Is patient prescribed a controlled substance at d/c from ED?: No Time of Disposition: 22:00
[2024-06-26 19:48] LABS: Basophils % (A) 0 %; Eosinophils # (A) 0.1 k/uL (0-0.7); Eosinophils % (A) 1 %; HCT 34.9 % (39.0-53.0); HGB 11.7 gm/dL (13.0-17.5); Lymphocytes # (A) 0.7 k/uL (1.0-4.8); Lymphocytes % (A) 6 %; MCH 33.9 pg (25.0-35.0); MCHC 33.6 g/dL (31.0-37.0); Monocytes # (A) 0.6 k/uL (0-1.0); Monocytes % (A) 5 %; Neutrophils # (A) 10.9 k/uL (1.3-7.7); Neutrophils % (A) 88 %; Platelet Count 234 k/uL (150-450); RBC 3.46 m/uL (4.30-5.90); RDW 12.7 % (11.5-15.5); WBC 12.3 k/uL (3.8-10.6)
[2024-06-26] MEDS: SODIUM CHLORIDE 0.9% 1,000 ML IV STA (19:49)
[2024-06-26] MEDS: ONDANSETRON 4 MG/2 ML VIAL IVP STA (19:49)
[2024-06-26] MEDS: HYDROmorphone 0.5 MG/0.5 ML SYRINGE IVP STA (19:53)
[2024-06-26 20:02] LABS: INR 1.1 (<1.2); Partial Thromboplastin Time 22.3 sec (22.0-30.0); Prothrombin Time 11.7 sec (10.0-12.5)
[2024-06-26 20:09] LABS: ALT 27 U/L (4-49); AST 24 U/L (17-59); African American GFR (CKD) 79 (>60 ml/min/1.73 sqM); Albumin 3.7 g/dL (3.5-5.0); Alkaline Phosphatase 57 U/L (38-126); Amylase 41 U/L (30-110); Anion Gap 9 mmol/L; Blood Urea Nitrogen 25 mg/dL (9-20); Calcium 8.6 mg/dL (8.4-10.2); Carbon Dioxide 20 mmol/L (22-30); Chloride 106 mmol/L (98-107); Glucose 148 mg/dL (74-99); Lipase 35 U/L (23-300); Non-African American GFR(CKD) 69 (>60 ml/min/1.73 sqM); Sodium 135 mmol/L (137-145); Total Bilirubin 0.5 mg/dL (0.2-1.3)
--- NOTE | 2024-06-26 20:45 | CT ---
EXAMINATION TYPE: CT abdomen pelvis wo con DATE OF EXAM: 06/26/2024 8:34 PM COMPARISON: Previous CT study 12/24/2016. CLINICAL INDICATION: Male, 89 years old with history of abdominal pain; abdominal pain TECHNIQUE: Axial CT abdomen pelvis wo con;Sagittal and coronal reformats were created on a separate workstation. Oral contrast used: without Oral Contrast (none if empty) CT DLP: 633.9 mGycm, Automated exposure control for dose reduction was used. FINDINGS: Partially visualized lower lung zones. No acute pathology. Coronary artery stent partially visualized . Small hiatal hernia. Liver and gallbladder are unremarkable. Spleen unremarkable. No suspicious adrenal gland nodule. Fatt y parenchymal atrophy of the pancreas. No evidence of acute obstructive uropathy. Infrarenal abdomina l aortic aneurysm status post aorto biiliac stent graft placement. Aneurysm measures approximately 5. 5 x 5.4 cm including the excluded aneurysm sac. Wall thickening of the descending and sigmoid colon with adjacent mesenteric stranding. No small trinh l obstruction. Stomach underdistended but otherwise unremarkable. Femoral-femoral vascular stent eran t noted. Urinary bladder unremarkable. Prostatomegaly. Multilevel thoracic and lumbar spine degenerat ann changes with grade 1 anterolisthesis of L4 on L5. IMPRESSION: 1. Wall thickening of the descending and sigmoid colon with adjacent mesenteric fat stranding/acute inflammatory changes suggesting infectious or inflammatory colitis. Recommend outpatient colonoscopy/ direct visualization as clinically warranted to exclude other etiologies. 2. Nonacute findings as above. [facility], , 06/26/2024 8:42 PM
[2024-06-26] MEDS ORDERED: NALOXONE 0.4 MG/ML 1 ML VIAL IV PRN (22:09)
[2024-06-26 22:31] LABS: Appearance,Urine Clear (Clear); Bilirubin,Urine Negative (Negative); Blood,Urine Negative (Negative); Color,Urine Light Yellow; Glucose,Urine (UA) Negative (Negative); Ketones,Urine Negative (Negative); Leukocyte Esterase,Urine Negative (Negative); Nitrite,Urine Negative (Negative); Protein,Urine Negative (Negative); Urobilinogen,Urine <2.0 mg/dL (<2.0)
[2024-06-26] MEDS: SODIUM CHLORIDE 0.9% 1,000 ML IV SCH (23:02)
[2024-06-26] MEDS: HYDROmorphone 0.5 MG/0.5 ML SYRINGE IVP PRN (23:04)
[2024-06-26] MEDS: AMPICILLIN-SULBACTAM 3 GM in SODIUM CHLORIDE 0.9% 100 ML IVPB STA (23:46)
[2024-06-27] MEDS: HYDROmorphone 1 MG/ML 1 ML SYRINGE IVP STA (01:38)
[2024-06-27 05:05] LABS: ALT 23 U/L (4-49); AST 22 U/L (17-59); African American GFR (CKD) 86 (>60 ml/min/1.73 sqM); Albumin 3.2 g/dL (3.5-5.0); Alkaline Phosphatase 40 U/L (38-126); Anion Gap 5 mmol/L; Blood Urea Nitrogen 25 mg/dL (9-20); Calcium 8.2 mg/dL (8.4-10.2); Carbon Dioxide 23 mmol/L (22-30); Chloride 107 mmol/L (98-107); Glucose 126 mg/dL (74-99); Lipase 15 U/L (23-300); Magnesium 1.9 mg/dL (1.6-2.3); Non-African American GFR(CKD) 75 (>60 ml/min/1.73 sqM); Phosphorus 3.9 mg/dL (2.5-4.5); Potassium 4.4 mmol/L (3.5-5.1); Sodium 135 mmol/L (137-145); Total Bilirubin 0.7 mg/dL (0.2-1.3); Total Protein 5.5 g/dL (6.3-8.2)
[2024-06-27 05:14] LABS: Basophils % (A) 0 %; Eosinophils % (A) 0 %; HCT 34.4 % (39.0-53.0); HGB 11.5 gm/dL (13.0-17.5); Lymphocytes # (A) 0.7 k/uL (1.0-4.8); Lymphocytes % (A) 5 %; MCH 33.7 pg (25.0-35.0); MCHC 33.4 g/dL (31.0-37.0); Monocytes # (A) 0.7 k/uL (0-1.0); Monocytes % (A) 5 %; Neutrophils # (A) 12.4 k/uL (1.3-7.7); Neutrophils % (A) 88 %; Platelet Count 229 k/uL (150-450); RBC 3.41 m/uL (4.30-5.90); RDW 12.8 % (11.5-15.5); WBC 14.2 k/uL (3.8-10.6)
[2024-06-27] MEDS: PANTOPRAZOLE 40 MG/10 ML VIAL IV SCH (08:56)
[2024-06-27] MEDS: ENOXAPARIN 40 MG/0.4 ML SYRINGE SQ SCH (08:56)
[2024-06-27] MEDS: AMPICILLIN-SULBACTAM 3 GM in SODIUM CHLORIDE 0.9% 100 ML IVPB SCH (08:56)
[2024-06-27] MEDS: metroNIDAZOLE 500 MG TAB PO SCH (08:56)
[2024-06-27] MEDS: HYDROmorphone 1 MG/ML 1 ML SYRINGE IVP PRN (16:13)
[2024-06-27] MEDS: PIPERACILLIN-TAZOBACTAM 3.375 GM in SODIUM CHLORIDE 0.9% 100 ML IVPB SCH (16:13)
--- NOTE | 2024-06-27 18:08 | P.HPIM ---
History of Present Illness H&P Date: 06/27/24 Luis Carlos Hendricks, is an 89-year-old male who presented to [facility] emergency room with a chief complaint of abdominal pain, pain was mostly in the left lower quadrant, patient also has chronic constipation, he takes MiraLAX at home, he states that he did not have any bowel movement for 3 days. He denies any fever or chills no nausea or vomiting and no diarrhea, no blood in the stools. He was evaluated in the emergency room vital examination on presentation revealed a temperature of 98.1 pulse 95 respiration 18 blood pressure 149/69 pulse ox 98% on room air Laboratory data revealed a white blood count of 12.3 hemoglobin 11.7 platelet count 234 sodium 135 potassium 4.0 chloride 106 CO2 20 BUN 25 creatinine 0.98 lactic acid was elevated at 2.9 Testing in the emergency room revealed CT scan of the abdomen and pelvis revealed wall thickening of the descending and sigmoid colon with adjacent mesenteric fat stranding suggestive of infectious or inflammatory colitis Patient was admitted to medical floor for further evaluation and treatment Past Medical History Past Medical History: Diabetes Mellitus, GERD/Reflux, Hyperlipidemia, Hypertension, Osteoarthritis (OA), Vascular Disorder Additional Past Medical History / Comment(s): restless leg syndrome, sciatica rt side, neuropathy legs & feet, states difficulty walking, unable to stand long, degenerative arthritis, uses cane or wheelchair, constipation. aortic aneurysm. History of Any Multi-Drug Resistant Organisms: None Reported Past Surgical History: Prostate Surgery Additional Past Surgical History / Comment(s): right wrist, penile implant, TURP. monika cataracts Past Anesthesia/Blood Transfusion Reactions: No Reported Reaction Past Psychological History: No Psychological Hx Reported Smoking Status: Former smoker Past Alcohol Use History: None Reported Additional Past Alcohol Use History / Comment(s): QUIT SMOKING 1979, smoked less than 1ppd Past Drug Use History: None Reported - Past Family History Father Family Medical History: Cancer Mother Family Medical History: Dementia Additional Family Medical History / Comment(s): alzheimers Brother(s) Family Medical History: Cancer Son(s) Family Medical History: Cancer Additional Family Medical History / Comment(s): PROSTATE CANCER Medications and Allergies Home Medications Medication Instructions Recorded Confirmed Type Tamsulosin HCl [Flomax] 0.4 mg PO BID 12/21/16 06/27/24 History amLODIPine [Norvasc] 10 mg PO DAILY 12/21/16 06/27/24 History ALPRAZolam [Xanax] 0.5 mg PO TID 01/09/17 06/27/24 History traMADol HCL [Ultram] 50 - 100 mg PO BID PRN 01/09/17 06/27/24 History Ibuprofen [Motrin] 800 mg PO BID PRN 11/18/17 06/27/24 History Gabapentin [Neurontin] 100 mg PO TID PRN 08/04/19 06/27/24 History Atorvastatin [Lipitor] 20 mg PO DAILY 08/09/19 06/27/24 History Clopidogrel [Plavix] 75 mg PO DAILY 30 Days #30 tab 08/18/19 06/27/24 Rx Enalapril [Vasotec] 5 mg PO DAILY 06/27/24 06/27/24 History Latanoprost [Latanoprost 0.005%] 1 drop BOTH EYES HS 06/27/24 06/27/24 History Pantoprazole Sodium [Protonix] 40 mg PO DAILY 06/27/24 06/27/24 History metFORMIN HCL [Glucophage] 500 mg PO BID 06/27/24 06/27/24 History Allergies Allergy/AdvReac Type Severity Reaction Status Date / Time pregabalin [From Lyrica] Allergy Unknown Verified 06/27/24 09:05 Physical Exam Vitals: Vital Signs Temp Pulse Pulse Resp BP BP Pulse Ox 06/27/24 07:12 98.6 F 85 16 123/47 97 06/27/24 01:07 99.1 F 100 16 133/76 96 06/27/24 00:17 98.7 F 89 16 133/65 96 06/26/24 23:00 95 18 152/66 98 06/26/24 21:23 94 16 143/63 100 06/26/24 19:55 89 18 153/63 98 06/26/24 19:20 98.1 F 95 18 149/69 98 Intake and Output 06/26/24 06/27/24 06/27/24 22:59 06:59 14:59 Intake Total 590 Output Total 100 Balance 490 Intake: Oral 590 Output: Urine 100 Other: Voiding Method Toilet Urinal # Voids 2 # Bowel Movements 3 Weight 79.379 kg 79.379 kg In general patient is alert and oriented x 3 in no distress HEENT head normocephalic and atraumatic Neck is supple no JVD no goiter no lymphadenopathy no carotid bruit Chest examination is clear to auscultation no crackles no wheezing Cardiac exam reveals regular heart sounds S1 and S2 no gallops no murmurs Abdomen is soft, with diffuse tenderness no organomegaly with normal bowel sounds Extremity exam reveals no edema no cyanosis or clubbing Neurological examination reveals no gross focal deficits Results CBC & Chem 7: 06/27/24 04:19 06/27/24 04:19 Labs: Abnormal Lab Results - Last 24 Hours (Table) 06/26/24 06/26/24 06/26/24 Range/Units 19:30 19:30 19:30 WBC 12.3 H (3.8-10.6) k/uL RBC 3.46 L (4.30-5.90) m/uL Hgb 11.7 L (13.0-17.5) gm/dL Hct 34.9 L (39.0-53.0) % MCV 101.0 H (80.0-100.0) fL Neutrophils # 10.9 H (1.3-7.7) k/uL Lymphocytes # 0.7 L (1.0-4.8) k/uL Sodium 135 L (137-145) mmol/L Carbon Dioxide 20 L (22-30) mmol/L BUN 25 H (9-20) mg/dL Glucose 148 H (74-99) mg/dL Plasma Lactic Acid Job 2.9 H* (0.7-2.0) mmol/L Calcium (8.4-10.2) mg/dL Total Protein 6.0 L (6.3-8.2) g/dL Albumin (3.5-5.0) g/dL Lipase (23-300) U/L 06/27/24 06/27/24 Range/Units 04:19 04:19 WBC 14.2 H (3.8-10.6) k/uL RBC 3.41 L (4.30-5.90) m/uL Hgb 11.5 L (13.0-17.5) gm/dL Hct 34.4 L (39.0-53.0) % MCV 101.0 H (80.0-100.0) fL Neutrophils # 12.4 H (1.3-7.7) k/uL Lymphocytes # 0.7 L (1.0-4.8) k/uL Sodium 135 L (137-145) mmol/L Carbon Dioxide (22-30) mmol/L BUN 25 H (9-20) mg/dL Glucose 126 H (74-99) mg/dL Plasma Lactic Acid Job (0.7-2.0) mmol/L Calcium 8.2 L (8.4-10.2) mg/dL Total Protein 5.5 L (6.3-8.2) g/dL Albumin 3.2 L (3.5-5.0) g/dL Lipase 15 L (23-300) U/L Thrombosis Risk Factor Assmnt - Choose All That Apply Any of the Below Risk Factors Present?: No Other Risk Factors: Yes Each Risk Factor Represents 3 Points: Age 75 years or older Other congenital or acquired thrombophilia - If yes, enter type in comment: No Thrombosis Risk Factor Assessment Total Risk Factor Score: 3 Thrombosis Risk Factor Assessment Level: Moderate Risk Assessment and Plan Plan: Acute colitis sepsis as evidenced by leukocytosis, and elevated lactic acid of 2.9 Underlying history of hypertension Underlying history of hyperlipidemia Underlying history of diabetes mellitus type 2 Underlying history of peripheral neuropathy At this time patient is admitted to medical floor He was kept on clear liquid diet Home medications reviewed and reordered He was started on IV Unasyn in the emergency room, will continue, will add Flagyl Consultation for infectious disease and general surgery was initiated For DVT prophylaxis subcu Lovenox Will follow closely
[2024-06-27] MEDS: ONDANSETRON 4 MG/2 ML VIAL IVP PRN (20:02)
[2024-06-27] MEDS: CLOPIDOGREL 75 MG TAB PO SCH (22:02)
[2024-06-27] MEDS: ATORVASTATIN 20 MG TAB PO SCH (22:02)
[2024-06-27] MEDS: TAMSULOSIN 0.4 MG CAP.ER.24H PO SCH (22:03)
[2024-06-27] MEDS: ALPRAZolam 0.5 MG TAB PO SCH (22:03)
[2024-06-27] MEDS: metFORMIN 500 MG TAB PO SCH (22:05)
--- NOTE | 2024-06-28 07:38 | P.CONS ---
History of Present Illness - Reason for Consult Consult date: 06/27/24 Acute colitis Requesting physician: Latha Caballero - Chief Complaint Abdominal pain x 1 day - History of Present Illness Patient is a 89-year-old male with a past medical history significant for diabetes mellitus reflux hypertension hyperlipidemia osteoarthritis pr esenting to the hospital for evaluation of abdominal pain mostly left lower quadrant area patient mention he was constipated and the give him an enema subsequently patient noticed to have increasing pain to the lower abdominal area the patient describes the pain to be sharp squeezing almost 10/10 in severity some relief with the pain medication did have some nausea but no vomiting and no significant radiation of the pain patient denies high-grade fever did have some chills on presentation to the hospital patient was afebrile he did have 1 low- grade fever of 99.1 F at 1 AM patient was mildly tachycardic at 1 point but not hypotensive or hypoxic and no need for supplemental oxygen patient did have a white count of 12.3 on admission which is up to 14.2 today creatinine 0.98 lactic acid was elevated 2.9 repeat is 1.7 liver enzymes are normal amylase lipase is normal urine has been negative patient did have abdominal pelvis CT wall thickening of the descending and sigmoid colon with adjacent mesenteric fat stranding acute inflammatory changes concerning for infectious contributing c olitis patient was started on Unasyn infectious disease was consulted for further management of antibiotic therapy Review of Systems Positive point and negatives has been mentioned in the HPI, complete review of systems was performed and all other systems are negative Past Medical History Past Medical History: Diabetes Mellitus, GERD/Reflux, Hyperlipidemia, Hypertension, Osteoarthritis (OA), Vascular Disorder Additional Past Medical History / Comment(s): restless leg syndrome, sciatica rt side, neuropathy legs & feet, states difficulty walking, unable to stand long, degenerative arthritis, uses cane or wheelchair, constipation. aortic aneurysm. History of Any Multi-Drug Resistant Organisms: None Reported Past Surgical History: Prostate Surgery Additional Past Surgical History / Comment(s): right wrist, penile implant, T URP. monika cataracts Past Anesthesia/Blood Transfusion Reactions: No Reported Reaction Past Psychological History: No Psychological Hx Reported Smoking Status: Former smoker Past Alcohol Use History: None Reported Additional Past Alcohol Use History / Comment(s): QUIT SMOKING 1979, smoked less than 1ppd Past Drug Use History: None Reported - Past Family History Father Family Medical History: Cancer Mother Family Medical History: Dementia Additional Family Medical History / Comment(s): alzheimers Brother(s) Family Medical History: Cancer Son(s) Family Medical History: Cancer Additional Family Medical History / Comment(s): PROSTATE CANCER Medications and Allergies Home Medications Medication Instructions Recorded Confirmed Type Tamsulosin HCl [Flomax] 0.4 mg PO BID 12/21/16 06/27/24 History amLODIPine [Norvasc] 10 mg PO DAILY 12/21/16 06/27/24 History ALPRAZolam [Xanax] 0.5 mg PO TID 01/09/17 06/27/24 History traMADol HCL [Ultram] 50 - 100 mg PO BID PRN 01/09/17 06/27/24 History Ibuprofen [Motrin] 800 mg PO BID PRN 11/18/17 06/27/24 History Gabapentin [Neurontin] 100 mg PO TID PRN 08/04/19 06/27/24 History Atorvastatin [Lipitor] 20 mg PO DAILY 08/09/19 06/27/24 History Clopidogrel [Plavix] 75 mg PO DAILY 30 Days #30 tab 08/18/19 06/27/24 Rx Enalapril [Vasotec] 5 mg PO DAILY 06/27/24 06/27/24 History Latanoprost [Latanoprost 0.005%] 1 drop BOTH EYES HS 06/27/24 06/27/24 History Pantoprazole Sodium [Protonix] 40 mg PO DAILY 06/27/24 06/27/24 History metFORMIN HCL [Glucophage] 500 mg PO BID 06/27/24 06/27/24 History Allergies Allergy/AdvReac Type Severity Reaction Status Date / Time pregabalin [From Lyrica] Allergy Unknown Verified 06/27/24 09:05 Physical Exam Vitals: Vital Signs Temp Pulse Pulse Resp BP BP Pulse Ox 06/27/24 07:12 98.6 F 85 16 123/47 97 06/27/24 01:07 99.1 F 100 16 133/76 96 06/27/24 00:17 98.7 F 89 16 133/65 96 06/26/24 23:00 95 18 152/66 98 06/26/24 21:23 94 16 143/63 100 06/26/24 19:55 89 18 153/63 98 06/26/24 19:20 98.1 F 95 18 149/69 98 Intake and Output 06/26/24 06/27/24 06/27/24 22:59 06:59 14:59 Intake Total 590 Output Total 100 200 Balance 490 -200 Intake: Oral 590 Output: Urine 100 200 Other: Voiding Method Toilet Toilet Urinal Urinal # Voids 2 1 # Bowel Movements 3 1 Weight 79.379 kg 79.379 kg GENERAL DESCRIPTION: Elderly male lying in bed, no distress. No tachypnea or accessory muscle of respiration use. HEENT: Shows Pallor , no scleral icterus. Oral mucous membrane is dry. No pharyngeal erythema or thrush NECK: Trachea central, no thyromegaly. LUNGS: Unlabored breathing. Clear to auscultation anteriorly. No wheeze or crackle. HEART: S1, S2, regular rate and rhythm. No loud murmur ABDOMEN: Soft, left lower quadrant tenderness EXTREMITIES: No edema of feet. SKIN: No rash, no masses palpable. NEUROLOGICAL: The patient is awake, alert, oriented x3, mood and affect normal. Results CBC & Chem 7: 06/27/24 04:19 06/27/24 04:19 Labs: Abnormal Lab Results - Last 24 Hours (Table) 06/26/24 06/26/24 06/26/24 Range/Units 19:30 19:30 19:30 WBC 12.3 H (3.8-10.6) k/uL RBC 3.46 L (4.30-5.90) m/uL Hgb 11.7 L (13.0-17.5) gm/dL Hct 34.9 L (39.0-53.0) % MCV 101.0 H (80.0-100.0) fL Neutrophils # 10.9 H (1.3-7.7) k/uL Lymphocytes # 0.7 L (1.0-4.8) k/uL Sodium 135 L (137-145) mmol/L Carbon Dioxide 20 L (22-30) mmol/L BUN 25 H (9-20) mg/dL Glucose 148 H (74-99) mg/dL Plasma Lactic Acid Job 2.9 H* (0.7-2.0) mmol/L Calcium (8.4-10.2) mg/dL Total Protein 6.0 L (6.3-8.2) g/dL Albumin (3.5-5.0) g/dL Lipase (23-300) U/L 06/27/24 06/27/24 Range/Units 04:19 04:19 WBC 14.2 H (3.8-10.6) k/uL RBC 3.41 L (4.30-5.90) m/uL Hgb 11.5 L (13.0-17.5) gm/dL Hct 34.4 L (39.0-53.0) % MCV 101.0 H (80.0-100.0) fL Neutrophils # 12.4 H (1.3-7.7) k/uL Lymphocytes # 0.7 L (1.0-4.8) k/uL Sodium 135 L (137-145) mmol/L Carbon Dioxide (22-30) mmol/L BUN 25 H (9-20) mg/dL Glucose 126 H (74-99) mg/dL Plasma Lactic Acid Job (0.7-2.0) mmol/L Calcium 8.2 L (8.4-10.2) mg/dL Total Protein 5.5 L (6.3-8.2) g/dL Albumin 3.2 L (3.5-5.0) g/dL Lipase 15 L (23-300) U/L Assessment and Plan (1) Diverticulitis Current Visit: Yes Status: Acute Code(s): K57.92 - DVTRCLI OF INTEST, PART UNSP, W/O PERF OR ABSCESS W/O BLEED SNOMED Code(s): 935669749 (2) Leukocytosis Current Visit: Yes Status: Acute Code(s): D72.829 - ELEVATED WHITE BLOOD CELL COUNT, UNSPECIFIED SNOMED Code(s): 616965525 Plan: 1patient presented to hospital with acute abdominal pain in this patient also do a history of constipation with abnormality seen on the CT highly suspicious for diverticulitis and will need to cover for the enteric gram-negative both aerobes and anaerobes. 2patient did have slight worsening of the white count on Unasyn concerning for possible resistant pathogen. 3we will discontinue Unasyn. 4start the patient on Zosyn 3.375 g every 8 hours and bowel rest. We will follow on clinical condition and cultures to further adjust medication if needed Thank you for this consultation we will follow the patient along with you Dictation was produced using [employer] dictation software. please excuse any grammatical, word or spelling errors. Time with Patient: Greater than 30
[2024-06-28 08:22] LABS: Basophils # (A) 0.01 X 10*3/uL (0.00-0.10); Basophils % (A) 0.1 %; Eosinophils # (A) 0.06 X 10*3/uL (0.04-0.35); Eosinophils % (A) 0.8 %; HCT 29.9 % (39.6-50.0); Lymphocytes # (A) 1.14 X 10*3/uL (0.90-5.00); MCHC 33.4 g/dL (32.0-37.0); MCV 98.7 FL (80.0-97.0); Mean Platelet Volume 11.1 FL (9.5-12.2); Monocytes # (A) 0.97 X 10*3/uL (0.20-1.00); Monocytes % (A) 13.6 %; NRBC Per 100 WBC 0 X 10*3/uL (0.00-0.01); Neutrophils # (A) 4.76 X 10*3/uL (1.80-7.70); Neutrophils % (A) 66.7 %; Platelet Count 203 X 10*3/uL (140-440); RBC 3.03 X 10*6/uL (4.40-5.60); RDW 13.4 % (11.5-14.5); WBC 7.14 X 10*3/uL (4.50-10.00)
[2024-06-28] MEDS: lisinopriL 10 MG TAB PO SCH (08:29)
[2024-06-28] MEDS: amLODIPine 10 MG TAB PO SCH (08:30)
--- NOTE | 2024-06-28 08:53 | P.PN ---
Subjective Progress Note Date: 06/28/24 Luis Carlos Hendricks, is an 89-year-old male who presented to [facility] emergency room with a chief complaint of abdominal pain, pain was mostly in the left lower quadrant, patient also has chronic constipation, he takes MiraLAX at home, he states that he did not have any bowel movement for 3 days. He denies any fever or chills no nausea or vomiting and no diarrhea, no blood in the stools. He was evaluated in the emergency room vital examination on presentation revealed a temperature of 98.1 pulse 95 respiration 18 blood pressure 149/69 pulse ox 98% on room air Laboratory data revealed a white blood count of 12.3 hemoglobin 11.7 platelet count 234 sodium 135 potassium 4.0 chloride 106 CO2 20 BUN 25 creatinine 0.98 lactic acid was elevated at 2.9 Testing in the emergency room revealed CT scan of the abdomen and pelvis revealed wall thickening of the descending and sigmoid colon with adjacent mesenteric fat stranding suggestive of infectious or inflammatory colitis Patient was admitted to medical floor for further evaluation and treatment On 06/28/2024 patient's alert and oriented x 3. Patient reports some improvement with nausea and vomiting denies any abdominal pain has been tolerating full liquid diet. Remains on IV Zosyn per infectious disease awaiting surgical in put. Current vital signs temp 98.0, heart rate 65, respiratory rate 15, blood pressure 137/70 with a pulse ox of 98% on room air patient denies chest pain or shortness of breath. Patient denies nausea vomiting or diarrhea. Patient denies any urinary burning or frequency. White blood cell 7.14, hemoglobin 10.0 Objective - Vital Signs Vital signs: Vital Signs Temp 98.0 F 06/28/24 07:10 Pulse 65 06/28/24 07:10 Resp 15 06/28/24 07:10 BP 137/70 06/28/24 07:10 Pulse Ox 98 06/28/24 07:10 FiO2 Intake & Output 06/27/24 06/28/24 06/28/24 18:59 06:59 18:59 Intake Total 590 Output Total 200 600 325 Balance -200 -10 -325 Intake: Oral 590 Output: Urine 200 600 325 Other: Voiding Method Toilet Urinal Urinal # Voids 1 # Bowel Movements 1 - Exam In general patient is alert and oriented x 3 in no distress HEENT head normocephalic and atraumatic Neck is supple no JVD no goiter no lymphadenopathy no carotid bruit Chest examination is clear to auscultation no crackles no wheezing Cardiac exam reveals regular heart sounds S1 and S2 no gallops no murmurs Abdomen is soft, with diffuse tenderness no organomegaly with normal bowel sounds Extremity exam reveals no edema no cyanosis or clubbing Neurological examination reveals no gross focal deficits - Labs CBC & Chem 7: 06/28/24 04:04 06/27/24 04:19 Labs: Abnormal Lab Results - Last 24 Hours (Table) 06/28/24 Range/Units 04:04 RBC 3.03 L (4.40-5.60) X 10*6/uL Hgb 10.0 L (13.0-17.0) g/dL Hct 29.9 L (39.6-50.0) % MCV 98.7 H (80.0-97.0) FL MCH 33.0 H (27.0-32.0) pg Immature Gran # 0.20 H (0.00-0.04) X 10*3/uL Assessment and Plan Plan: Acute colitis sepsis as evidenced by leukocytosis, and elevated lactic acid of 2.9 Underlying history of hypertension Underlying history of hyperlipidemia Underlying history of diabetes mellitus type 2 Underlying history of peripheral neuropathy At this time patient is admitted to medical floor He was kept on clear liquid diet Home medications reviewed and reordered He was started on IV Unasyn in the emergency room, will continue, will add Flagyl Consultation for infectious disease and general surgery was initiated For DVT prophylaxis subcu Lovehollyx Will follow closely
[2024-06-28 09:05] LABS: ALT 18 U/L (10-49); AST 21 U/L (14-35); Albumin 3.3 g/dL (3.8-4.9); Albumin/Globulin Ratio 1.94 Ratio (1.60-3.17); Alkaline Phosphatase 31 U/L (41-126); Blood Urea Nitrogen 16.2 mg/dL (9.0-27.0); Calcium 8.3 mg/dL (8.7-10.3); Carbon Dioxide 21.3 mmol/L (21.6-31.8); Chloride 106 mmol/L (96-109); Globulin 1.7 g/dL (1.6-3.3); Glucose 91 mg/dL (70-110); Potassium 4.2 mmol/L (3.5-5.5); Sodium 138 mmol/L (135-145); Total Bilirubin 0.6 mg/dL (0.3-1.2)
--- NOTE | 2024-06-28 11:35 | P.GSCN ---
History of Present Illness Consult date: 06/28/24 History of present illness: CHIEF COMPLAINT: Abdominal pain HISTORY OF PRESENT ILLNESS: This is a 89-year-old male who presented to the hospital with complaints of pain across the lower abdomen but mostly in the left lower quadrant. Patient's symptoms started about 2 days ago. Patient reports that the pain was very severe. He had initially been working on something in the house when pain became very severe and he thought he had to use the restroom. He went to go to the bathroom and was having difficulty. Patient reports that he was curled up on the floor in the bathroom due to the pain. He was having a lot of vomiting. did administer an enema and patient was able to have several bowel movements. The patient continued to have severe left lower quadrant pain and came into the ER for evaluation. Patient reports that he had stopped taking his MiraLAX because it was causing diarrhea and then was dealing with constipation after 3 days without a BM. Patient's last colonoscopy was in 2018 and reported as normal. Patient had a CT scan completed reporting wall thickening of the sigmoid colon with mesenteric fat stranding and inflammation changes for infectious versus inflammation colitis. Patient started on antibiotics. He has received IV fluids. Patient reports that his pain is much better today. He has had no further vomiting. Patient is on Plavix. Patient denies any prior history of diverticulitis or colitis. PAST MEDICAL HISTORY: See below PAST SURGICAL HISTORY: See below MEDICATIONS: See below ALLERGIES: See below SOCIAL HISTORY: No illicit drug use. REVIEW OF SYSTEMS: CONSTITUTIONAL: Denies fever or chills. HEENT: Denies blurred vision, vision changes, or eye pain. Denies hemoptysis CARDIOVASCULAR: Denies chest pain or pressure. RESPIRATORY: No shortness of breath. GASTROINTESTINAL: See HPI for pertinent findings HEMATOLOGIC: Denies bleeding disorders. GENITOURINARY: Denies any blood in urine or increased urinary frequency. SKIN: Denies pruitis. Denies rash. PHYSICAL EXAM: VITAL SIGNS: Reviewed GENERAL: Well-developed in no acute distress. HEENT: No sclera icterus. Extraocular movements grossly intact. Moist buccal mucosa. Head is atraumatic, normocephalic. No nasal drainage. ABDOMEN: Soft. Nondistended. Mild tenderness with palpation to left lower quadrant. NEUROLOGIC: Alert and oriented. Cranial nerves II through XII grossly intact. LABORATORY DATA: WBC 14.2 down to 7.14 Hgb 11.5 down to 10 platelets 203 Sodium 138 potassium is 4.2 creatinine 0.9 Lactic acid 2.9 down to 1.7 LFTs normal lipase 15 Urinalysis negative for infection IMAGING: CT scan abdomen pelvis reports wall thickening of the descending and sigmoid colon with adjacent mesenteric fat stranding/acute inflammatory changes suggesting infectious or inflammatory colitis. Recommend outpatient colonoscopy ASSESSMENT: 1. Left lower quadrant abdominal pain with wall thickening of the descending and sigmoid colon on CAT scan with inflammatory changes suggesting infectious or inflammatory colitis 2. History of constipation PLAN: -Continue antibiotics -Continue IV fluids -Continue full liquid diet -Continue supportive care -Repeat CBC in a.m. -Further recommendations forthcoming per surgeon Physician Emergency Medical Dispatcher note has been reviewed by physician. Signing provider agrees with the documented findings, assessment, and plan of care. I have personally seen and examined the patient, reviewed the CHRO /PAs history, exam and MDM and agree with the assessment and plan as written. Based on total visit time, I have performed more than 50% of the visit. As above: Patient with abdominal pain and CAT scan showing diffuse mild inflammatory changes of the colon. Continue antibiotics for possible infectious colitis. No plans for endoscopy at this time. Patient with history of prolonged constipation. Continue stool softeners post discharge. Will follow. Past Medical History Past Medical History: Diabetes Mellitus, GERD/Reflux, Hyperlipidemia, Hypertension, Osteoarthritis (OA), Vascular Disorder Additional Past Medical History / Comment(s): restless leg syndrome, sciatica rt side, neuropathy legs & feet, states difficulty walking, unable to stand long, degenerative arthritis, uses cane or wheelchair, constipation. aortic aneurysm. History of Any Multi-Drug Resistant Organisms: None Reported Past Surgical History: Prostate Surgery Additional Past Surgical History / Comment(s): right wrist, penile implant, TURP. monika cataracts Past Anesthesia/Blood Transfusion Reactions: No Reported Reaction Past Psychological History: No Psychological Hx Reported Smoking Status: Former smoker Past Alcohol Use History: None Reported Additional Past Alcohol Use History / Comment(s): QUIT SMOKING 1979, smoked less than 1ppd Past Drug Use History: None Reported - Past Family History Father Family Medical History: Cancer Mother Family Medical History: Dementia Additional Family Medical History / Comment(s): alzheimers Brother(s) Family Medical History: Cancer Son(s) Family Medical History: Cancer Additional Family Medical History / Comment(s): PROSTATE CANCER Medications and Allergies Home Medications Medication Instructions Recorded Confirmed Type Tamsulosin HCl [Flomax] 0.4 mg PO BID 12/21/16 06/27/24 History amLODIPine [Norvasc] 10 mg PO DAILY 12/21/16 06/27/24 History ALPRAZolam [Xanax] 0.5 mg PO TID 01/09/17 06/27/24 History traMADol HCL [Ultram] 50 - 100 mg PO BID PRN 01/09/17 06/27/24 History Ibuprofen [Motrin] 800 mg PO BID PRN 11/18/17 06/27/24 History Gabapentin [Neurontin] 100 mg PO TID PRN 08/04/19 06/27/24 History Atorvastatin [Lipitor] 20 mg PO DAILY 08/09/19 06/27/24 History Clopidogrel [Plavix] 75 mg PO DAILY 30 Days #30 tab 08/18/19 06/27/24 Rx Enalapril [Vasotec] 5 mg PO DAILY 06/27/24 06/27/24 History Latanoprost [Latanoprost 0.005%] 1 drop BOTH EYES HS 06/27/24 06/27/24 History Pantoprazole Sodium [Protonix] 40 mg PO DAILY 06/27/24 06/27/24 History metFORMIN HCL [Glucophage] 500 mg PO BID 06/27/24 06/27/24 History Allergies Allergy/AdvReac Type Severity Reaction Status Date / Time pregabalin [From Lyrica] Allergy Unknown Verified 06/27/24 09:05 Surgical - Exam Vital Signs Temp Pulse Resp BP Pulse Ox 98.1 F 95 18 149/69 98 06/26/24 19:20 06/26/24 19:20 06/26/24 19:20 06/26/24 19:20 06/26/24 19:20 Results - Labs 06/28/24 04:04 06/28/24 04:04 Abnormal Lab Results - Last 24 Hours (Table) 06/28/24 06/28/24 Range/Units 04:04 04:04 RBC 3.03 L (4.40-5.60) X 10*6/uL Hgb 10.0 L (13.0-17.0) g/dL Hct 29.9 L (39.6-50.0) % MCV 98.7 H (80.0-97.0) FL MCH 33.0 H (27.0-32.0) pg Immature Gran # 0.20 H (0.00-0.04) X 10*3/uL Carbon Dioxide 21.3 L (21.6-31.8) mmol/L Calcium 8.3 L (8.7-10.3) mg/dL Alkaline Phosphatase 31 L (41-126) U/L Total Protein 5.0 L (6.2-8.2) g/dL Albumin 3.3 L (3.8-4.9) g/dL Diabetes panel 06/28/24 Range/Units 04:04 Sodium 138 (135-145) mmol/L Potassium 4.2 (3.5-5.5) mmol/L Chloride 106 (96-109) mmol/L Carbon Dioxide 21.3 L (21.6-31.8) mmol/L BUN 16.2 (9.0-27.0) mg/dL Creatinine 0.9 (0.6-1.5) mg/dL Glucose 91 (70-110) mg/dL Calcium 8.3 L (8.7-10.3) mg/dL AST 21 (14-35) U/L ALT 18 (10-49) U/L Alkaline Phosphatase 31 L (41-126) U/L Total Protein 5.0 L (6.2-8.2) g/dL Albumin 3.3 L (3.8-4.9) g/dL Calcium panel 06/28/24 Range/Units 04:04 Calcium 8.3 L (8.7-10.3) mg/dL Albumin 3.3 L (3.8-4.9) g/dL Pituitary panel 06/28/24 Range/Units 04:04 Sodium 138 (135-145) mmol/L Potassium 4.2 (3.5-5.5) mmol/L Chloride 106 (96-109) mmol/L Carbon Dioxide 21.3 L (21.6-31.8) mmol/L BUN 16.2 (9.0-27.0) mg/dL Creatinine 0.9 (0.6-1.5) mg/dL Glucose 91 (70-110) mg/dL Calcium 8.3 L (8.7-10.3) mg/dL Adrenal panel 06/28/24 Range/Units 04:04 Sodium 138 (135-145) mmol/L Potassium 4.2 (3.5-5.5) mmol/L Chloride 106 (96-109) mmol/L Carbon Dioxide 21.3 L (21.6-31.8) mmol/L BUN 16.2 (9.0-27.0) mg/dL Creatinine 0.9 (0.6-1.5) mg/dL Glucose 91 (70-110) mg/dL Calcium 8.3 L (8.7-10.3) mg/dL Total Bilirubin 0.6 (0.3-1.2) mg/dL AST 21 (14-35) U/L ALT 18 (10-49) U/L Alkaline Phosphatase 31 L (41-126) U/L Total Protein 5.0 L (6.2-8.2) g/dL Albumin 3.3 L (3.8-4.9) g/dL
[2024-06-28 12:10] LABS: Glucose,Whole Blood 121 mg/dL (70-110)
--- NOTE | 2024-06-28 15:00 | P.PN ---
Subjective Progress Note Date: 06/28/24 Principal diagnosis: Reason for follow-up is colitis Patient is a 89-year-old male with a past medical history significant for diabetes mellitus reflux hypertension hyperlipidemia osteoarthritis presenting to the hospital for evaluation of abdominal pain mostly left lower quadrant area also with significant history of constipation CT abdominal pelvis shows wall thickening of the descending and sigmoid colon prompted this consultation. On today's evaluation that is 06/28/2024, Patient is afebrile this morning patient denies having any chest pain shortness of breath or cough, the patient is currently on room air, patient did have some nausea last night but no vom iting abdominal discomfort has slightly decreased in intensity. Patient white count is down to 7.14, creatinine 0.9 Objective - Vital Signs Vital signs: Vital Signs Temp 97.8 F 06/28/24 12:59 Pulse 73 06/28/24 12:59 Resp 15 06/28/24 12:59 BP 122/60 06/28/24 12:59 Pulse Ox 96 06/28/24 12:59 FiO2 Intake & Output 06/27/24 06/28/24 06/28/24 18:59 06:59 18:59 Intake Total 590 Output Total 157 660 3249 Balance - Intake: Oral 590 Output: Urine 168 838 0534 Other: Voiding Method Toilet Urinal Urinal Urinal # Voids 1 # Bowel Movements 1 1 - Exam GENERAL DESCRIPTION: An elderly male lying in bed in no distress RESPIRATORY SYSTEM: Unlabored breathing , decreased breath sounds at bases HEART: S1 S2 regular rate and rhythm , ABDOMEN: Soft , mild tenderness EXTREMITIES: No edema feet - Labs CBC & Chem 7: 06/28/24 04:04 06/28/24 04:04 Labs: Abnormal Lab Results - Last 24 Hours (Table) 06/28/24 06/28/24 06/28/24 Range/Units 04:04 04:04 12:08 RBC 3.03 L (4.40-5.60) X 10*6/uL Hgb 10.0 L (13.0-17.0) g/dL Hct 29.9 L (39.6-50.0) % MCV 98.7 H (80.0-97.0) FL MCH 33.0 H (27.0-32.0) pg Immature Gran # 0.20 H (0.00-0.04) X 10*3/uL Carbon Dioxide 21.3 L (21.6-31.8) mmol/L POC Glucose (mg/dL) 121 H (70-110) mg/dL Calcium 8.3 L (8.7-10.3) mg/dL Alkaline Phosphatase 31 L (41-126) U/L Total Protein 5.0 L (6.2-8.2) g/dL Albumin 3.3 L (3.8-4.9) g/dL Assessment and Plan (1) Diverticulitis Current Visit: Yes Status: Acute Code(s): K57.92 - DVTRCLI OF INTEST, PART UNSP, W/O PERF OR ABSCESS W/O BLEED SNOMED Code(s): 162718926 (2) Leukocytosis Current Visit: Yes Status: Acute Code(s): D72.829 - ELEVATED WHITE BLOOD CELL COUNT, UNSPECIFIED SNOMED Code(s): 245265855 Plan: 1patient presented to hospital with acute abdominal pain in this patient also do a history of constipation with abnormality seen on the CT highly suspicious for diverticulitis and will need to cover for the enteric gram-negative both aerobes and anaerobes. 2patient did have slight worsening of the white count on Unasyn concerning for possible resistant pathogen. 3patient did have improvement in his white count, we will continue Zosyn 3.375 g every 8 hours and bowel rest and monitor clinical course closely Dictation was produced using [employer] dictation software. please excuse any grammatical, word or spelling errors. Time with Patient: Less than 30
[2024-06-28] MEDS: GABAPENTIN 100 MG CAP PO PRN (16:11)
[2024-06-28 17:40] LABS: Glucose,Whole Blood 104 mg/dL (70-110)
[2024-06-28 20:41] LABS: Glucose,Whole Blood 149 mg/dL (70-110)
[2024-06-29 07:12] LABS: Glucose,Whole Blood 90 mg/dL (70-110)
[2024-06-29 08:40] LABS: Basophils # (A) 0.01 X 10*3/uL (0.00-0.10); Basophils % (A) 0.3 %; Eosinophils % (A) 2.6 %; HGB 9.4 g/dL (13.0-17.0); Lymphocytes # (A) 0.86 X 10*3/uL (0.90-5.00); Lymphocytes % (A) 22.6 %; MCH 32.6 pg (27.0-32.0); MCHC 33.6 g/dL (32.0-37.0); MCV 97.2 FL (80.0-97.0); Mean Platelet Volume 10.7 FL (9.5-12.2); Monocytes # (A) 0.56 X 10*3/uL (0.20-1.00); Monocytes % (A) 14.7 %; NRBC Per 100 WBC 0 X 10*3/uL (0.00-0.01); Neutrophils # (A) 2.25 X 10*3/uL (1.80-7.70); Platelet Count 189 X 10*3/uL (140-440); RBC 2.88 X 10*6/uL (4.40-5.60); RDW 13.2 % (11.5-14.5); WBC 3.81 X 10*3/uL (4.50-10.00)
[2024-06-29 08:51] LABS: ALT 22 U/L (10-49); AST 27 U/L (14-35); Albumin 3.1 g/dL (3.8-4.9); Albumin/Globulin Ratio 1.94 Ratio (1.60-3.17); Alkaline Phosphatase 29 U/L (41-126); Blood Urea Nitrogen 11.2 mg/dL (9.0-27.0); Calcium 8.1 mg/dL (8.7-10.3); Carbon Dioxide 20.3 mmol/L (21.6-31.8); Chloride 111 mmol/L (96-109); Globulin 1.6 g/dL (1.6-3.3); Glucose 92 mg/dL (70-110); Potassium 3.8 mmol/L (3.5-5.5); Sodium 141 mmol/L (135-145); Total Bilirubin 0.4 mg/dL (0.3-1.2); Total Protein 4.7 g/dL (6.2-8.2)
--- NOTE | 2024-06-29 09:36 | P.PN ---
Subjective Progress Note Date: 06/29/24 Luis Carlos Hendricks, is an 89-year-old male who presented to [facility] emergency room with a chief complaint of abdominal pain, pain was mostly in the left lower quadrant, patient also has chronic constipation, he takes MiraLAX at home, he states that he did not have any bowel movement for 3 days. He denies any fever or chills no nausea or vomiting and no diarrhea, no blood in the stools. He was evaluated in the emergency room vital examination on presentation revealed a temperature of 98.1 pulse 95 respiration 18 blood pressure 149/69 pulse ox 98% on room air Laboratory data revealed a white blood count of 12.3 hemoglobin 11.7 platelet count 234 sodium 135 potassium 4.0 chloride 106 CO2 20 BUN 25 creatinine 0.98 lactic acid was elevated at 2.9 Testing in the emergency room revealed CT scan of the abdomen and pelvis revealed wall thickening of the descending and sigmoid colon with adjacent mesenteric fat stranding suggestive of infectious or inflammatory colitis Patient was admitted to medical floor for further evaluation and treatment On 06/28/2024 patient's alert and oriented x 3. Patient reports some improvement with nausea and vomiting denies any abdominal pain has been tolerating full liquid diet. Remains on IV Zosyn per infectious disease awaiting surgical in put. Current vital signs temp 98.0, heart rate 65, respiratory rate 15, blood pressure 137/70 with a pulse ox of 98% on room air patient denies chest pain or shortness of breath. Patient denies nausea vomiting or diarrhea. Patient denies any urinary burning or frequency. White blood cell 7.14, hemoglobin 10.0 On 06/29/2024 patient is alert and oriented x 3 patient having some increased abdominal pain today. Discussed case with surgical services patient will likely continue full liquid diet and monitoring for now. Patient remains on IV Zosyn. Infectious disease and surgical services following. Current vital signs temp 97.2 97.2, heart rate 77, respiratory rate 17, blood pressure 147/68 with a pulse ox of 95% on room air. Patient denies chest pain or shortness of breath. Patient reports some nausea. Patient denies any urinary burning or frequency Objective - Vital Signs Vital signs: Vital Signs Temp 98.2 F 06/29/24 00:37 Pulse 66 06/29/24 00:37 Resp 18 06/29/24 00:37 BP 144/62 06/29/24 00:37 Pulse Ox 98 06/29/24 00:37 FiO2 Intake & Output 06/28/24 06/29/24 06/29/24 18:59 06:59 18:59 Intake Total 120 Output Total 1300 950 Balance -1300 -830 Intake: Oral 120 Output: Urine 1300 950 Other: Voiding Method Urinal Urinal # Bowel Movements 1 - Exam In general patient is alert and oriented x 3 in no distress HEENT head normocephalic and atraumatic Neck is supple no JVD no goiter no lymphadenopathy no carotid bruit Chest examination is clear to auscultation no crackles no wheezing Cardiac exam reveals regular heart sounds S1 and S2 no gallops no murmurs Abdomen is soft, with diffuse tenderness no organomegaly with normal bowel sounds Extremity exam reveals no edema no cyanosis or clubbing Neurological examination reveals no gross focal deficits - Labs CBC & Chem 7: 06/29/24 05:04 06/29/24 05:04 Labs: Abnormal Lab Results - Last 24 Hours (Table) 06/28/24 06/28/24 06/28/24 Range/Units 04:04 04:04 12:08 RBC 3.03 L (4.40-5.60) X 10*6/uL Hgb 10.0 L (13.0-17.0) g/dL Hct 29.9 L (39.6-50.0) % MCV 98.7 H (80.0-97.0) FL MCH 33.0 H (27.0-32.0) pg Immature Gran # 0.20 H (0.00-0.04) X 10*3/uL Carbon Dioxide 21.3 L (21.6-31.8) mmol/L POC Glucose (mg/dL) 121 H (70-110) mg/dL Calcium 8.3 L (8.7-10.3) mg/dL Alkaline Phosphatase 31 L (41-126) U/L Total Protein 5.0 L (6.2-8.2) g/dL Albumin 3.3 L (3.8-4.9) g/dL 06/28/24 Range/Units 20:40 RBC (4.40-5.60) X 10*6/uL Hgb (13.0-17.0) g/dL Hct (39.6-50.0) % MCV (80.0-97.0) FL MCH (27.0-32.0) pg Immature Gran # (0.00-0.04) X 10*3/uL Carbon Dioxide (21.6-31.8) mmol/L POC Glucose (mg/dL) 149 H (70-110) mg/dL Calcium (8.7-10.3) mg/dL Alkaline Phosphatase (41-126) U/L Total Protein (6.2-8.2) g/dL Albumin (3.8-4.9) g/dL Assessment and Plan Plan: Acute colitis sepsis as evidenced by leukocytosis, and elevated lactic acid of 2.9 Underlying history of hypertension Underlying history of hyperlipidemia Underlying history of diabetes mellitus type 2 Underlying history of peripheral neuropathy At this time patient is admitted to medical floor He was kept on clear liquid diet Home medications reviewed and reordered He was started on IV Unasyn in the emergency room, will continue, will add Flagyl Consultation for infectious disease and general surgery was initiated For DVT prophylaxis subcu Lovenox Will follow closely
[2024-06-29 12:27] LABS: Glucose,Whole Blood 177 mg/dL (70-110)
--- NOTE | 2024-06-29 13:26 | P.PN ---
Subjective Progress Note Date: 06/29/24 SURGICAL PROGRESS NOTE CHIEF COMPLAINT: Colitis HISTORY OF PRESENT ILLNESS: Patient reports his overall abdominal pain is less. He was able to tolerate breakfast. This morning he is very sleepy but arousable and able to answer questions. Patient seen by Dr. Denney this afternoon and patient is more awake and alert and feeling better. He did have a bowel movement yesterday he reports it is soft. Denies any nausea or vomiting. Afebrile. WBC 3.81 Hgb 9.4 platelets 189 sodium is 141 potassium 3.8 creatinine 0.8 PHYSICAL EXAM: VITAL SIGNS: Reviewed. GENERAL: Well-developed in no acute distress. ABDOMEN: Soft. Nondistended. Mild tenderness palpation left lower quadrant NEUROLOGIC: This morning's exam patient was very sleepy but arousable ASSESSMENT: 1. Possible infectious colitis PLAN: -Advance diet to regular -Continue antibiotics -Encourage patient increase activity level -Anticipate possible discharge tomorrow Physician Inspector Automatic Typewriter note has been reviewed by physician. Signing provider agrees with the documented findings, assessment, and plan of care. Objective - Vital Signs Vital signs: Vital Signs Temp 97.2 F L 06/29/24 07:13 Pulse 77 06/29/24 07:13 Resp 17 06/29/24 07:13 BP 147/68 06/29/24 07:13 Pulse Ox 95 06/29/24 07:13 FiO2 Intake & Output 06/28/24 06/29/24 06/29/24 18:59 06:59 18:59 Intake Total 120 Output Total 1300 950 500 Balance -1300 -830 -500 Intake: Oral 120 Output: Urine 1300 950 500 Other: Voiding Method Urinal Urinal # Voids 1 # Bowel Movements 1 1 - Labs CBC & Chem 7: 06/29/24 05:04 06/29/24 05:04 Labs: Abnormal Lab Results - Last 24 Hours (Table) 06/28/24 06/28/24 06/29/24 Range/Units 12:08 20:40 05:04 WBC 3.81 L (4.50-10.00) X 10*3/uL RBC 2.88 L (4.40-5.60) X 10*6/uL Hgb 9.4 L (13.0-17.0) g/dL Hct 28.0 L (39.6-50.0) % MCV 97.2 H (80.0-97.0) FL MCH 32.6 H (27.0-32.0) pg Lymphocytes # 0.86 L (0.90-5.00) X 10*3/uL Chloride (96-109) mmol/L Carbon Dioxide (21.6-31.8) mmol/L POC Glucose (mg/dL) 121 H 149 H (70-110) mg/dL Calcium (8.7-10.3) mg/dL Alkaline Phosphatase (41-126) U/L Total Protein (6.2-8.2) g/dL Albumin (3.8-4.9) g/dL 06/29/24 Range/Units 05:04 WBC (4.50-10.00) X 10*3/uL RBC (4.40-5.60) X 10*6/uL Hgb (13.0-17.0) g/dL Hct (39.6-50.0) % MCV (80.0-97.0) FL MCH (27.0-32.0) pg Lymphocytes # (0.90-5.00) X 10*3/uL Chloride 111 H (96-109) mmol/L Carbon Dioxide 20.3 L (21.6-31.8) mmol/L POC Glucose (mg/dL) (70-110) mg/dL Calcium 8.1 L (8.7-10.3) mg/dL Alkaline Phosphatase 29 L (41-126) U/L Total Protein 4.7 L (6.2-8.2) g/dL Albumin 3.1 L (3.8-4.9) g/dL
[2024-06-29 17:28] LABS: Glucose,Whole Blood 167 mg/dL (70-110)
[2024-06-29 19:50] LABS: Glucose,Whole Blood 125 mg/dL (70-110)
--- NOTE | 2024-06-29 22:55 | P.PN ---
Subjective Progress Note Date: 06/29/24 Principal diagnosis: Reason for follow-up is colitis Patient is a 89-year-old male with a past medical history significant for diabetes mellitus reflux hypertension hyperlipidemia osteoarthritis presenting to the hospital for evaluation of abdominal pain mostly left lower quadrant area also with significant history of constipation CT abdominal pelvis shows wall thickening of the descending and sigmoid colon prompted this consultation. On today's evaluation that is 06/29/2024,the patient denies any fever or any chills, patient is breathing comfortably on room air, the patient denies chest pain shortness of breath and no significant cough, patient abdominal pain has decreased in intensity mention he did have a hard bowel movement yesterday and a soft 1 today no nausea vomiting. Patient white count is 3.81 creatinine 0.8 blood culture have been negative so far Objective - Vital Signs Vital signs: Vital Signs Temp 97.2 F L 06/29/24 07:13 Pulse 77 06/29/24 07:13 Resp 17 06/29/24 07:13 BP 147/68 06/29/24 07:13 Pulse Ox 95 06/29/24 07:13 FiO2 Intake & Output 06/28/24 06/29/24 06/29/24 18:59 06:59 18:59 Intake Total 120 Output Total 1300 950 500 Balance -1300 -830 -500 Intake: Oral 120 Output: Urine 1300 950 500 Other: Voiding Method Urinal Urinal Urinal # Voids 1 # Bowel Movements 1 1 - Exam GENERAL DESCRIPTION: An elderly male lying in bed in no distress RESPIRATORY SYSTEM: Unlabored breathing , decreased breath sounds at bases HEART: S1 S2 regular rate and rhythm , ABDOMEN: Soft , mild tenderness EXTREMITIES: No edema feet - Labs CBC & Chem 7: 06/29/24 05:04 06/29/24 05:04 Labs: Abnormal Lab Results - Last 24 Hours (Table) 06/28/24 06/29/24 06/29/24 Range/Units 20:40 05:04 05:04 WBC 3.81 L (4.50-10.00) X 10*3/uL RBC 2.88 L (4.40-5.60) X 10*6/uL Hgb 9.4 L (13.0-17.0) g/dL Hct 28.0 L (39.6-50.0) % MCV 97.2 H (80.0-97.0) FL MCH 32.6 H (27.0-32.0) pg Lymphocytes # 0.86 L (0.90-5.00) X 10*3/uL Chloride 111 H (96-109) mmol/L Carbon Dioxide 20.3 L (21.6-31.8) mmol/L POC Glucose (mg/dL) 149 H (70-110) mg/dL Calcium 8.1 L (8.7-10.3) mg/dL Alkaline Phosphatase 29 L (41-126) U/L Total Protein 4.7 L (6.2-8.2) g/dL Albumin 3.1 L (3.8-4.9) g/dL 06/29/24 Range/Units 12:26 WBC (4.50-10.00) X 10*3/uL RBC (4.40-5.60) X 10*6/uL Hgb (13.0-17.0) g/dL Hct (39.6-50.0) % MCV (80.0-97.0) FL MCH (27.0-32.0) pg Lymphocytes # (0.90-5.00) X 10*3/uL Chloride (96-109) mmol/L Carbon Dioxide (21.6-31.8) mmol/L POC Glucose (mg/dL) 177 H (70-110) mg/dL Calcium (8.7-10.3) mg/dL Alkaline Phosphatase (41-126) U/L Total Protein (6.2-8.2) g/dL Albumin (3.8-4.9) g/dL Assessment and Plan (1) Diverticulitis Current Visit: Yes Status: Acute Code(s): K57.92 - DVTRCLI OF INTEST, PART UNSP, W/O PERF OR ABSCESS W/O BLEED SNOMED Code(s): 265691206 (2) Leukocytosis Current Visit: Yes Status: Acute Code(s): D72.829 - ELEVATED WHITE BLOOD CELL COUNT, UNSPECIFIED SNOMED Code(s): 228568349 Plan: 1patient presented to hospital with acute abdominal pain in this patient also do a history of constipation with abnormality seen on the CT highly suspicious for diverticulitis and will need to cover for the enteric gram-negative both a erobes and anaerobes. 2patient did have normalization of the white count yesterday slightly down to day. 3patient will be treated with Zosyn 3.375 g every 8 hours and bowel rest while inpatient and will transition to oral antibiotics on discharge. Dictation was produced using [employer] dictation software. please excuse any grammatical, word or spelling errors. Time with Patient: Less than 30
[2024-06-30 07:18] LABS: Glucose,Whole Blood 101 mg/dL (70-110)
[2024-06-30 09:16] LABS: Basophils # (A) 0.01 X 10*3/uL (0.00-0.10); Basophils % (A) 0.2 %; Eosinophils # (A) 0.09 X 10*3/uL (0.04-0.35); Eosinophils % (A) 2.2 %; HCT 30.5 % (39.6-50.0); HGB 10.5 g/dL (13.0-17.0); Lymphocytes # (A) 1.15 X 10*3/uL (0.90-5.00); Lymphocytes % (A) 27.6 %; MCH 33.3 pg (27.0-32.0); MCHC 34.4 g/dL (32.0-37.0); MCV 96.8 FL (80.0-97.0); Mean Platelet Volume 10.6 FL (9.5-12.2); Monocytes # (A) 0.43 X 10*3/uL (0.20-1.00); Monocytes % (A) 10.3 %; NRBC Per 100 WBC 0 X 10*3/uL (0.00-0.01); Neutrophils # (A) 2.45 X 10*3/uL (1.80-7.70); Platelet Count 227 X 10*3/uL (140-440); RBC 3.15 X 10*6/uL (4.40-5.60); RDW 13.2 % (11.5-14.5); WBC 4.16 X 10*3/uL (4.50-10.00)
[2024-06-30 09:19] LABS: ALT 24 U/L (10-49); AST 25 U/L (14-35); Albumin 3.3 g/dL (3.8-4.9); Albumin/Globulin Ratio 1.74 Ratio (1.60-3.17); Alkaline Phosphatase 32 U/L (41-126); BUN/Creat Ratio 9.62 Ratio (12.00-20.00); Blood Urea Nitrogen 7.7 mg/dL (9.0-27.0); Calcium 8.2 mg/dL (8.7-10.3); Carbon Dioxide 21.9 mmol/L (21.6-31.8); Chloride 113 mmol/L (96-109); Globulin 1.9 g/dL (1.6-3.3); Glucose 98 mg/dL (70-110); Potassium 3.8 mmol/L (3.5-5.5); Sodium 143 mmol/L (135-145); Total Bilirubin 0.3 mg/dL (0.3-1.2); Total Protein 5.2 g/dL (6.2-8.2)
--- NOTE | 2024-06-30 11:43 | P.DS ---
Providers Date of admission: 06/28/24 16:00 Expected date of discharge: 06/30/24 Attending physician: Latha Caballero Consults: 06/27/24 07:39 Consult Physician Routine Consulting Provider: Franklin Medeiros Consult Reason/Comments: Acute colitis Do you want consulting provider notified?: Yes 06/28/24 08:17 Consult Physician Routine Consulting Provider: Jed Denney Consult Reason/Comments: Colitis Do you want consulting provider notified?: Yes Primary care physician: Sarika Guillory Hospital Course: Discharge diagnosis Acute colitis sepsis as evidenced by leukocytosis, and elevated lactic acid of 2.9 Underlying history of hypertension Underlying history of hyperlipidemia Underlying history of diabetes mellitus type 2 Underlying history of peripheral neuropathy Hospital course Luis Carlos Hendricks, is an 89-year-old male who presented to [facility] emergency room with a chief complaint of abdominal pain, pain was mostly in the left lower quadrant, patient also has chronic constipation, he takes MiraLAX at home, he states that he did not have any bowel movement for 3 days. He denies any fever or chills no nausea or vomiting and no diarrhea, no blood in the stools. He was evaluated in the emergency room vital examination on presentation revealed a temperature of 98.1 pulse 95 respiration 18 blood pressure 149/69 pulse ox 98% on room air Laboratory data revealed a white blood count of 12.3 hemoglobin 11.7 platelet count 234 sodium 135 potassium 4.0 chloride 106 CO2 20 BUN 25 creatinine 0.98 lactic acid was elevated at 2.9 Testing in the emergency room revealed CT scan of the abdomen and pelvis revealed wall thickening of the descending and sigmoid colon with adjacent mesenteric fat stranding suggestive of infectious or inflammatory colitis Patient was admitted to medical floor for further evaluation and treatment On 06/28/2024 patient's alert and oriented x 3. Patient reports some improvement with nausea and vomiting denies any abdominal pain has been tolerating full liquid diet. Remains on IV Zosyn per infectious disease awaiting surgical input. Current vital signs temp 98.0, heart rate 65, respiratory rate 15, blood pressure 137/70 with a pulse ox of 98% on room air patient denies chest pain or shortness of breath. Patient denies nausea vomiting or diarrhea. Patient denies any urinary burning or frequency. White blood cell 7.14, hemoglobin 10.0 On 06/29/2024 patient is alert and oriented x 3 patient having some increased abdominal pain today. Discussed case with surgical services patient will likely continue full liquid diet and monitoring for now. Patient remains on IV Zosyn. Infectious disease and surgical services following. Current vital signs temp 97.2 97.2, heart rate 77, respiratory rate 17, blood pressure 147/68 with a pulse ox of 95% on room air. Patient denies chest pain or shortness of breath. Patient reports some nausea. Patient denies any urinary burning or frequency On 06/30/2024 patient is alert and oriented x 3. Patient has been tolerating regular diet denies any nausea vomiting or diarrhea. Discussed case with infectious disease patient may be discharged on Ceftin and Flagyl for 10 days prescription sent. White count has normalized. Patient denies any chest pain or shortness of breath. Patient denies any nausea vomiting or diarrhea. Patient Condition at Discharge: Stable Plan - Discharge Summary Discharge Rx Participant: No New Discharge Prescriptions: New cefuroxime axetiL [Ceftin] 500 mg PO BID #20 tab metroNIDAZOLE [Flagyl] 500 mg PO TID #30 tab Continue Tamsulosin HCl [Flomax] 0.4 mg PO BID amLODIPine [Norvasc] 10 mg PO DAILY ALPRAZolam [Xanax] 0.5 mg PO TID traMADol HCL [Ultram] 50 - 100 mg PO BID PRN PRN Reason: Pain Gabapentin [Neurontin] 100 mg PO TID PRN PRN Reason: Pain Atorvastatin [Lipitor] 20 mg PO DAILY Clopidogrel [Plavix] 75 mg PO DAILY 30 Days #30 tab Enalapril [Vasotec] 5 mg PO DAILY Pantoprazole Sodium [Protonix] 40 mg PO DAILY metFORMIN HCL [Glucophage] 500 mg PO BID Latanoprost [Latanoprost 0.005%] 1 drop BOTH EYES HS Discontinued Ibuprofen [Motrin] 800 mg PO BID PRN PRN Reason: Pain Discharge Medication List Tamsulosin HCl [Flomax] 0.4 mg PO BID 12/21/16 [History] amLODIPine [Norvasc] 10 mg PO DAILY 12/21/16 [History] ALPRAZolam [Xanax] 0.5 mg PO TID 01/09/17 [History] traMADol HCL [Ultram] 50 - 100 mg PO BID PRN 01/09/17 [History] Gabapentin [Neurontin] 100 mg PO TID PRN 08/04/19 [History] Atorvastatin [Lipitor] 20 mg PO DAILY 08/09/19 [History] Clopidogrel [Plavix] 75 mg PO DAILY 30 Days #30 tab 08/18/19 [Rx] Enalapril [Vasotec] 5 mg PO DAILY 06/27/24 [History] Latanoprost [Latanoprost 0.005%] 1 drop BOTH EYES HS 06/27/24 [History] Pantoprazole Sodium [Protonix] 40 mg PO DAILY 06/27/24 [History] metFORMIN HCL [Glucophage] 500 mg PO BID 06/27/24 [History] cefuroxime axetiL [Ceftin] 500 mg PO BID #20 tab 06/30/24 [Rx] metroNIDAZOLE [Flagyl] 500 mg PO TID #30 tab 06/30/24 [Rx] Follow up Appointment(s)/Referral(s): Sarika Guillory MD [Primary Care Provider] - 1-2 days Residential Home[facility] [NON-STAFF] - 1-2 Days Activity/Diet/Wound Care/Special Instructions: regular diet activity as tolerated Discharge Disposition: HOME SELF-CARE
[2024-06-30 12:10] LABS: Glucose,Whole Blood 115 mg/dL (70-110)
--- NOTE | 2024-06-30 14:01 | P.PN ---
Subjective Progress Note Date: 06/30/24 SURGICAL PROGRESS NOTE CHIEF COMPLAINT: Colitis HISTORY OF PRESENT ILLNESS: Patient is feeling better. He is tolerating regular diet. Abdominal pain has improved. He reports minimal discomfort left lower quadrant. He has had some diarrhea. Afebrile. WBC 4.16 Hgb 10.5 PHYSICAL EXAM: VITAL SIGNS: Reviewed. GENERAL: Well-developed in no acute distress. ABDOMEN: Soft. Nondistended. Minimal tenderness palpation left lower quadrant NEUROLOGIC: This morning's exam patient was very sleepy but arousable ASSESSMENT: 1. Possible infectious colitis PLAN: -Patient can be discharged from surgical standpoint -Agree with antibiotics at discharge Physician Director Of [employer] note has been reviewed by physician. Signing provider agrees with the documented findings, assessment, and plan of care. Objective - Vital Signs Vital signs: Vital Signs Temp 97.6 F 06/30/24 07:18 Pulse 65 06/30/24 07:18 Resp 17 06/30/24 07:18 BP 155/74 06/30/24 07:18 Pulse Ox 97 06/30/24 07:18 FiO2 Intake & Output 06/29/24 06/30/24 06/30/24 18:59 06:59 18:59 Intake Total 540 Output Total 950 200 Balance -410 -200 Intake: Oral 540 Output: Urine 950 200 Other: Voiding Method Urinal Bedside Commode Bedside Commode Urinal Urinal # Voids 1 # Bowel Movements 1 - Labs CBC & Chem 7: 06/30/24 04:26 06/30/24 04:26 Labs: Abnormal Lab Results - Last 24 Hours (Table) 06/29/24 06/29/24 06/30/24 Range/Units 17:27 19:49 04:26 WBC 4.16 L (4.50-10.00) X 10*3/uL RBC 3.15 L (4.40-5.60) X 10*6/uL Hgb 10.5 L (13.0-17.0) g/dL Hct 30.5 L (39.6-50.0) % MCH 33.3 H (27.0-32.0) pg Chloride (96-109) mmol/L BUN (9.0-27.0) mg/dL BUN/Creatinine Ratio (12.00-20.00) Ratio POC Glucose (mg/dL) 167 H 125 H (70-110) mg/dL Calcium (8.7-10.3) mg/dL Alkaline Phosphatase (41-126) U/L Total Protein (6.2-8.2) g/dL Albumin (3.8-4.9) g/dL 06/30/24 06/30/24 Range/Units 04:26 12:09 WBC (4.50-10.00) X 10*3/uL RBC (4.40-5.60) X 10*6/uL Hgb (13.0-17.0) g/dL Hct (39.6-50.0) % MCH (27.0-32.0) pg Chloride 113 H (96-109) mmol/L BUN 7.7 L (9.0-27.0) mg/dL BUN/Creatinine Ratio 9.62 L (12.00-20.00) Ratio POC Glucose (mg/dL) 115 H (70-110) mg/dL Calcium 8.2 L (8.7-10.3) mg/dL Alkaline Phosphatase 32 L (41-126) U/L Total Protein 5.2 L (6.2-8.2) g/dL Albumin 3.3 L (3.8-4.9) g/dL
[2024-06-30 14:03] VITALS: BP 144/70; PULSE 82; RESP 19; TEMP 98.6
--- NOTE | 2024-06-30 15:21 | P.PN ---
Subjective Progress Note Date: 06/30/24 Principal diagnosis: Reason for follow-up is colitis Patient is a 89-year-old male with a past medical history significant for diabetes mellitus reflux hypertension hyperlipidemia osteoarthritis presenting to the hospital for evaluation of abdominal pain mostly left lower quadrant area also with significant history of constipation CT abdominal pelvis shows wall thickening of the descending and sigmoid colon prompted this consultation. On today's evaluation that is 06/30/2024,the patient remains to be afebrile, patient is on room air not requiring supplemental oxygen and denies any shortness of breath no chest pain or cough.Patient denies having any nausea or vomiting, he did have resolution of his abdominal pain and having bowel movement feeling better. Patient white count is 4.16 creatinine 0.8 Objective - Vital Signs Vital signs: Vital Signs Temp 97.6 F 06/30/24 07:18 Pulse 65 06/30/24 07:18 Resp 17 06/30/24 07:18 BP 155/74 06/30/24 07:18 Pulse Ox 97 06/30/24 07:18 FiO2 Intake & Output 06/29/24 06/30/24 06/30/24 18:59 06:59 18:59 Intake Total 540 Output Total 950 200 Balance -410 -200 Intake: Oral 540 Output: Urine 950 200 Other: Voiding Method Urinal Bedside Commode Urinal # Voids 1 # Bowel Movements 1 - Exam GENERAL DESCRIPTION: An elderly male lying in bed in no distress RESPIRATORY SYSTEM: Unlabored breathing , decreased breath sounds at bases HEART: S1 S2 regular rate and rhythm , ABDOMEN: Soft , mild tenderness EXTREMITIES: No edema feet - Labs CBC & Chem 7: 06/30/24 04:26 06/30/24 04:26 Labs: Abnormal Lab Results - Last 24 Hours (Table) 06/29/24 06/29/24 06/29/24 Range/Units 12: 17:27 19:49 WBC (4.50-10.00) X 10*3/uL RBC (4.40-5.60) X 10*6/uL Hgb (13.0-17.0) g/dL Hct (39.6-50.0) % MCH (27.0-32.0) pg Chloride (96-109) mmol/L BUN (9.0-27.0) mg/dL BUN/Creatinine Ratio (12.00-20.00) Ratio POC Glucose (mg/dL) 177 H 167 H 125 H (70-110) mg/dL Calcium (8.7-10.3) mg/dL Alkaline Phosphatase (41-126) U/L Total Protein (6.2-8.2) g/dL Albumin (3.8-4.9) g/dL 06/30/24 06/30/24 Range/Units 04:26 04:26 WBC 4.16 L (4.50-10.00) X 10*3/uL RBC 3.15 L (4.40-5.60) X 10*6/uL Hgb 10.5 L (13.0-17.0) g/dL Hct 30.5 L (39.6-50.0) % MCH 33.3 H (27.0-32.0) pg Chloride 113 H (96-109) mmol/L BUN 7.7 L (9.0-27.0) mg/dL BUN/Creatinine Ratio 9.62 L (12.00-20.00) Ratio POC Glucose (mg/dL) (70-110) mg/dL Calcium 8.2 L (8.7-10.3) mg/dL Alkaline Phosphatase 32 L (41-126) U/L Total Protein 5.2 L (6.2-8.2) g/dL Albumin 3.3 L (3.8-4.9) g/dL Assessment and Plan (1) Diverticulitis Current Visit: Yes Status: Acute Code(s): K57.92 - DVTRCLI OF INTEST, PART UNSP, W/O PERF OR ABSCESS W/O BLEED SNOMED Code(s): 510611084 (2) Leukocytosis Current Visit: Yes Status: Acute Code(s): D72.829 - ELEVATED WHITE BLOOD CELL COUNT, UNSPECIFIED SNOMED Code(s): 371636221 Plan: 1patient presented to hospital with acute abdominal pain in this patient also do a history of constipation with abnormality seen on the CT highly suspicious for diverticulitis and will need to cover for the enteric gram-negative both a erobes and anaerobes. 2patient did have normalization of the white count yesterday slightly down to day. 3patient Has shown clinical improvement with Zosyn 3.375 g every 8 hours will finish therapy with oral Ceftin and Flagyl prescription sent to the pharmacy Dictation was produced using [employer] dictation software. please excuse any grammatical, word or spelling errors. Time with Patient: Less than 30
== END 2024-06-30 17:08 | disposition home or self-care (01) | DRG 872 ==
LOC: EC 19:15 → 5NMEDONC 22:09 → OBSVTOIN 06-28 16:00
PROVIDERS: ADMIT Internal Medicine; ATTEND Internal Medicine
DX: A41.9 Sepsis, unspecified organism (principal); K57.32 Diverticulitis of large intestine without perforation or abscess without bleeding; E11.42 Type 2 diabetes mellitus with diabetic polyneuropathy; I10 Essential (primary) hypertension; E78.5 Hyperlipidemia, unspecified; K52.9 Noninfective gastroenteritis and colitis, unspecified; K59.09 Other constipation; Z96.0 Presence of urogenital implants; Z87.891 Personal history of nicotine dependence; Z79.02 Long term (current) use of antithrombotics/antiplatelets; Z79.84 Long term (current) use of oral hypoglycemic drugs; Z79.899 Other long term (current) drug therapy; Z79.82 Long term (current) use of aspirin
CPT/HCPCS: 36415; 74176; 80053; 81003; 82150; 83605; 83690; 83735; 84100; 85025; 85610; 85730; 96361; 96365; 96375; 96376; 99285